=== PATIENT | female | born 1990 | race Caucasian/White ===

== ENCOUNTER 2023-05-20 11:22 | Outpatient (AMB) | payer BC, SELFPAY ==
--- NOTE | 2023-05-20 11:27 | MHC.OFFVIS ---
Intake Vital Signs 05/20/23 11:30 BP 112/78 Intake Visit Reasons: personal Intake Note: Scribed for Yane Pinon CNM by [facility] scribe, on 05/20/2023 at 11:36 AM, EST. Kiln Feeder: Kiln Feeder Present (Rossy) Allergies No Known Allergies Allergy (Verified 05/20/23 11:29) Is last menstrual period known: Yes Last menstrual period: 05/15/23 HPI HPI Comments History of Present Illness Details The patient presents in office today with complaints of a yeast infection. Onset ~1 week ago. The patient has taken diflucan, with no relief. She complains of burning and itching, which she finds frustrating. She is currently on her period. She is due for her annual and pap smear. [facility] Family History Maternal Grandmother History of breast cancer Female Reproductive History Menstrual Date of last menstrual period: 05/15/23 Total pregnancies: 4 Full term: 4 Number of Living Children: 4 Review of Systems Const All systems reviewed & are unremarkable except as noted in HPI and below Physical Exam Vital Signs: Last Vital Signs BP 112/78 05/20/23 11:30 Const General: cooperative, healthy appearing and no acute distress Orientation/consciousness: patient oriented x3 GI Inspection: Yes normal to inspection Palpation (GI): Soft to palpation and Other GI palpation findings present (Nontender) Rectal Exam - Female: visual inspection normal General: Yes bladder normal to palpation External Female Exam: No normal external appearance, normal appearance of the urethra, erythema (of vulva) and other (Edema of vulva) Speculum Exam - Vagina: abnormal vaginal discharge bloody Bimanual exam- vagina & uterus: normal bimanual exam, uterine size normal, bladder normal to palpation, uterine shape normal and non-tender Bimanual Exam- Adnexa, other: normal adnexae Neuro General: patient oriented x3 Assessment & Plan Assessment & Plan (1) Vaginitis: Code(s): N76.0 - Acute vaginitis Plan: Start Diflucan. Recommended cold compress. Air dry. No soap. No intimacy. Wear cotton underwear. Vulvar care: clean with water only, no soaps, no shaving. Dry with a cotton towel, air dry if needed. Wear loose cotton clothing. If swollen and uncomfortable externally apply a cool clothe to the area intermittently. Avoid intimacy until symptoms resolve. If symptoms do not improve, or resolve completely call the office for a follow up. Ordered BV panel. She is due for an annual with pap, she will schedule this to be done soon Orders: Orders Bacterial Vaginosis Panel Today N89.8 - Other specified noninflammatory disorders of vagina Medications: New clotrimazole-betamethasone 1-0.05 % 1 appl topical BID 7 days 45 grams 1RF fungal rash fluconazole may repeat dose in one week if symptoms do not resolve 150 mg PO ONCE 1 day 2 tabs 1RF personal Coding Level of Care Code New Pt Level 2 (75779) Diagnoses Vaginitis N76.0
[2023-05-20 11:30] VITALS: BP 112/78
== END 2023-05-20 12:22 | disposition home or self-care (01) ==
LOC: HO.HWS 11:22
PROVIDERS: Visit Provider Advanced Practice Midwife
DX: N76.0 Acute vaginitis (principal)
CPT/HCPCS: 99202

== ENCOUNTER 2023-05-20 11:22 | Outpatient (REF) | payer BC, SELFPAY ==
[2023-05-21 12:02] LABS: BV Int Neg Control Negative (Negative); BV Int Pos Control Positive (Positive)
== END 2023-05-20 11:23 | disposition home or self-care (01) ==
LOC: HO.LAB 11:22
PROVIDERS: Visit Provider Advanced Practice Midwife
DX: N89.8 Other specified noninflammatory disorders of vagina (principal)
CPT/HCPCS: 87480; 87510; 87660

== ENCOUNTER 2023-05-26 14:49 | Outpatient (REF) | payer BC, SELFPAY ==
[2023-05-27 12:50] LABS: BV Int Neg Control Negative (Negative); BV Int Pos Control Positive (Positive)
== END 2023-05-26 14:50 | disposition home or self-care (01) ==
LOC: HO.LAB 14:49
PROVIDERS: Visit Provider Advanced Practice Midwife
DX: N76.0 Acute vaginitis (principal)
CPT/HCPCS: 87480; 87510; 87660

== ENCOUNTER 2023-05-27 12:52 | Outpatient (REF) | payer BC, SELFPAY | END 2023-05-27 12:53 | disposition home or self-care (01) | LOC: HO.LAB 12:52 | PROVIDERS: Visit Provider Advanced Practice Midwife | DX: N76.0 Acute vaginitis (principal) | CPT/HCPCS: 87070; 87102; 87147; 87205 ==

== ENCOUNTER 2023-05-27 12:52 | Outpatient (REF) | payer BC, SELFPAY | END 2023-05-27 12:53 | disposition home or self-care (01) | LOC: HO.LNP 12:52 | PROVIDERS: Visit Provider Advanced Practice Midwife | DX: Z13.89 Encounter for screening for other disorder (principal) ==

== ENCOUNTER 2023-06-05 14:09 | Outpatient (REF) | payer BC, SELFPAY ==
[2023-06-05 14:28] LABS: MANUAL DIFF FLAG NO
[2023-06-05 14:58] LABS: Basophils Percent Auto 0.4 % (0-2); Eosinophils Absolute Auto 0.1 X10*3/uL (0.0-0.4); Eosinophils Percent Auto 0.6 % (0-4); Hematocrit 36.6 % (37.0-47.0); Hemoglobin 11.7 g/dl (12.0-16.0); Imm Gran Abs Auto 0.03 X10*3/uL (0.00-0.03); Imm Gran Pct Auto 0.3 % (0.0-0.4); Lymphocytes Absolute Auto 2.3 X10*3/uL (1.2-4.9); Lymphocytes Percent Auto 24.5 % (20-40); Mean Corpuscular Hemoglobin 28.1 pg (27.0-33.0); Mean Platelet Volume 10.6 fL (9.4-12.3); Monocytes Absolute Auto 0.8 X10*3/uL (0.1-1.2); Monocytes Percent Auto 9.1 % (2-11); Neutrophils Percent Auto 65.1 % (45-73); Platelet Count 383 X10*3/uL (160-400); Red Blood Count 4.16 X10*6/uL (4.20-5.50); Red Cell Distribution Width 13.5 % (11.0-16.0); White Blood Count 9.3 X10*3/uL (4.8-10.8)
[2023-06-05 15:29] LABS: Uric Acid 4.1 mg/dL (2.4-5.7)
== END 2023-06-05 14:10 | disposition home or self-care (01) ==
LOC: HO.LAB 14:09
PROVIDERS: Visit Provider Podiatrist Foot & Ankle Surgery
DX: L03.031 Cellulitis of right toe (principal); R60.0 Localized edema
CPT/HCPCS: 36415; 84550; 85025; 86140

== ENCOUNTER 2023-06-25 09:32 | Outpatient (REF) | payer BC, SELFPAY | END 2023-06-25 09:33 | disposition home or self-care (01) | LOC: HO.LAB 09:32 | PROVIDERS: Visit Provider Advanced Practice Midwife | DX: N76.0 Acute vaginitis (principal) | CPT/HCPCS: 87070; 87147; 87205 ==

== ENCOUNTER 2023-07-02 13:01 | Outpatient (AMB) | payer BC, SELFPAY ==
--- NOTE | 2023-07-02 12:59 | MHC.OFFVIS ---
Intake Vital Signs 07/02/23 13:06 Height 5 ft 7 in Weight 222 lb BMI 34.8 BP 120/69 Blood Pressure Location Lt brachial Position Sitting Pulse 80 Pulse Source Pulse Oximeter Pulse Oximetry (%) 100 Intake Visit Reasons: REf. Yane Pinon,Chronic vaginitis Allergies No Known Allergies Allergy (Verified 07/02/23 12:59) HPI REf. Yane Pinon,Chronic vaginitis HPI Details She presents with complaints of recurrent vulvar discomfort with redness and Group A strep isolated by report. She has received Amoxicillin on 05/26 and 06/27 with resolution but she is worried about recurrence. She also had yeast infection concerns and received Diflucan on 06/27. She has no other history of chronic infections. She has no known diabetes. [facility] Medical History Group A streptococcal infection Family History Maternal Grandmother History of breast cancer Review of Systems Const All systems reviewed & are unremarkable except as noted in HPI and below Physical Exam Vital Signs: Last Vital Signs Pulse 80 07/02/23 13:06 BP 120/69 07/02/23 13:06 Pulse Ox 100 07/02/23 13:06 BMI result Body Mass Index 34.8 Const General: cooperative Orientation/consciousness: patient oriented x3 HEENT Head: Yes normal to inspection Mouth: Normal oral and palatal mucosa present Eyes General: appearance normal, both eyes and all related structures Pupils: Equal, round and reactive pupils present Resp Effort & Inspection: normal respiratory effort Cardio Rate: regular rate Rhythm: regular rhythm GI Palpation (GI): Soft to palpation and nontender General: Yes no CVA tenderness Back/Spine/Pelvis Back: no CVA tenderness Skin General skin exam: no rashes or lesions noted Neuro General: patient oriented x3 Cranial nerves: Yes CN's II-XII intact bilaterally and Yes Equal, round and reactive pupils present Extrem General: Yes normal to inspection Psych Appearance: grossly normal Assessment & Plan Assessment & Plan (1) Group A streptococcal infection: Onset Date: 05/07/23 Comment: Check immunoglobulins and glucose Code(s): B95.0 - Streptococcus, group A, as the cause of diseases classified elsewhere Plan: Try suppressive PCN and let us know how this works. Check labs as above. Her daughter has had strep,try to check and eradicate it in household members. Orders: Orders Immunoglobulins,IgG IgA IgM 07/02/23 B95.0 - Streptococcus, group A, as the cause of diseases classified elsewhere Glucose Random 07/02/23 B95.0 - Streptococcus, group A, as the cause of diseases classified elsewhere Medications: New penicillin V potassium 250 mg PO BID 60 tabs 1RF 30 days Coding Level of Care Code New Pt Level 3 (51524) Diagnoses Group A streptococcal infection B95.0
[2023-07-02 13:06] VITALS: BP 120/69; PULSE 80; O2SAT 100; BMI 34.8
== END 2023-07-02 15:01 | disposition home or self-care (01) ==
PROVIDERS: Visit Provider Internal Medicine
DX: N76.1 Subacute and chronic vaginitis (principal); B95.0 Streptococcus, group A, as the cause of diseases classified elsewhere
CPT/HCPCS: 99203

== ENCOUNTER 2023-07-02 13:01 | Outpatient (REF) | payer BC, SELFPAY ==
[2023-07-02 18:23] LABS: Glucose Random 86 mg/dL (60-115)
[2023-07-04 16:54] LABS: IgA 290 mg/dL (47-310); IgG 1672 mg/dL (600-1640); IgM 53 mg/dL (50-300)
== END 2023-07-02 13:02 | disposition home or self-care (01) ==
LOC: HO.LAB 13:01
PROVIDERS: Visit Provider Internal Medicine
DX: N89.8 Other specified noninflammatory disorders of vagina (principal); B95.0 Streptococcus, group A, as the cause of diseases classified elsewhere
CPT/HCPCS: 36415; 82784; 82947

== ENCOUNTER 2024-09-08 12:47 | Outpatient (REF) | payer BC, SELFPAY ==
--- OUTSIDE RECORDS SUMMARY | 2024-09-08 15:31 | XMS_ITS | Clinical Summary ---
Author Organization [facility] Address [address] [place] [address] Care Team Providers Care Route Cdl Driver Name Role Phone Idris Elodia CURRICULUM COUNSELOR Primary Care Provider [phone] Social History Tobacco Use Types Packs/Day Years [...] age to complete this topic Care Teams Route Cdl Driver Relationship Specialty Start Date End Date Elodia Steinberg NP [address] [place] [address] PCP - General 05/13/22
--- OUTSIDE RECORDS SUMMARY | 2024-09-08 15:31 | XMS_ITS | Encounter Summary ---
Author Organization [facility] Address [address] [place] [address] Care Team Providers Care Regasification Plant Operator Name Role Phone Elodia Steinberg MABEL Primary Care Provider Encounter Details Date Type Department Care Team (Latest Contact Info) Description 09/22/2020 Lab Requisition [facility] COVID Drive Through [address] [place] [address] [address] [place] [address] Jayce Morales MD [address] [place] [address] Encounter for laboratory testing for COVID-19 virus [...] Luan Haji, Ph.D., Laboratory DirectorTests performed at [facility] Nasopharyngeal swab / Unknown 09/22/2020 1:53 PM EDT 09/22/2020 1:53 PM EDT Narrative JONATHAN CORTEZ - 09/23/2020 1:11 PM EDT Performed by [facility]., [address] [place] [address], CLIA# [id number] and [place] License# [id number] Jayce Morales MD MICROBIOLOGY - GENER AL ORDERABLES JONATHAN CORTEZ documented in this encounter Visit Diagnoses Diagnosis Encounter for laboratory testing for COVID-19 virus documented in this encounter Care Teams Regasification Plant Operator Relationship Specialty Start Date End Date Elodia Steinberg, MABEL PCP - General Family Medicine 06/20/20 documented as of this encounter
--- OUTSIDE RECORDS SUMMARY | 2024-09-08 15:31 | XMS_ITS | Clinical Summary ---
Author Organization [facility] Address [address] [place] [address] Care Team Providers Care Channel Layer Name Role Phone Idris Elodia Primary Care Provider [phone] Allergies No known active allergies Medications miSOPROStoL [...] high-risk Negative Negative 07/15/2023 3:02 PM EST [facility] Brushing Cervix uteri structure / Unknown Non-blood Collection / Unknown 07/14/2023 2:50 PM EST 07/14/2023 6:12 PM EST Narrative [facility] - 07/15/2023 3:02 PM EST Negative [...] LAB MICROBIOLOGY - GENERAL ORDERABLES Final Result [facility] [address] [place] [address], * Pap Test (07/14/2023 2:50 PM EST) Case Report Cytology ?Case: [id number] ? Authorizing Provider: ??Eve Davila MD ?Collected: ? 07/14/2023 1450 ? Ordering Location: ? [facility] Department of Received: ?07/15/2023 0817 ? Women's Health ? First Screen: ?Diya Benavides CT (ASCP) ? Specimen: ?Cytopathology, screening PAP test, Cervix ? 07/15/2023 3:02 PM EST [facility] LMP 07/06/2023 07/15/2023 3:02 PM EST [facility] Interpretation Negative for intraepithelial lesion or malignancy 07/15/2023 3:02 PM EST [facility] Specimen Adequacy Satisfactory for evaluation, endocervical/verma sformation zone component present 07/15/2023 3:02 PM EST [facility] Specimen Processing Thin Prep pap with manual screen/rescreen or review 07/15/2023 3:02 PM EST [facility] Educational Note The Pap test is a screening test which carries an inherent false negative rate. These test results should be correlated with the patient's clinical findings and history. 07/15/2023 3:02 PM EST [facility] Embedded Images 3:02 PM EST [facility] High Risk HPV Nucleic Acid Detection Negative 07/15/2023 3:02 PM EST [facility] Comment: Negative results indicate HPV E6/E7 [...] of Pathology and Laboratory Medicine at [facility] Brushing Cervix uteri structure / Unknown Non-blood Collection / Unknown 07/14/2023 2:50 PM EST 07/15/2023 8:17 AM EST us Eve Davila MD LAB PATHOLOGY/CYTOLOGY ORD ERABLES Final Result [facility] [address] [place] [address], [place] [phone] from Last 3 Months or Most Recently Relevant to Health Maintenance Insurance [employer] Care Teams Channel Layer Relationship Specialty Start Date End Date Elodia Steinberg [address] [place] [address] PCP - General Family Medicine 05/02/23
--- OUTSIDE RECORDS SUMMARY | 2024-09-08 15:31 | XMS_ITS | Encounter Summary ---
Author Organization [facility] Address [address] [place] [address] Care Team Providers Care School Counsellor Name Role Phone Elodia Steinberg MABEL Primary Care Provider Encounter Details Date Type Department Care Team (Latest Contact Info) Description [facility] [address] [place] [address] [address] [place] [address] Jayce Morales MD [address] [place] [address] Encounter for laboratory testing for COVID-19 virus [...] Detected Not Detected 10/13/2020 6:24 PM EDT [facility] Comment: Negative results do [...] was completed and performance characteristics established by [facility] as per the FDA and CLIA requirement for this EUA. The Aptima SARS-CoV-2 assay Letter of Authorization, along with the authorized Fact Sheet for Healthcare Providers, the authorized Fact Sheet for Patients, and authorized labeling are available on the FDA website: https://www.fda.gov/medical-devices/jkqlfzpby-ekylrxrqbu-bwloaaf-devices/emergen - i-ootyjjweywbhhi-vtxgfjn-devices. Performed at [facility], [place], [place] ??[place] License 0385 ??CLIA [id number] Source Nasopharyngeal 10/13/2020 6:24 PM EDT [facility] Comment:Performed at [facility], [facility], [place] license No. [id number] CLIA No. [id number] Microbiology Nasopharyngeal swab / Unknown 10/13/2020 2:15 PM EDT 10/13/2020 2:15 PM EDT Jayce Morales MD MICROBIOLOGY - GENER AL ORDERABLES [facility] [address] [place] [address] documented in this encounter Visit Diagnoses Diagnosis Encounter for laboratory testing for COVID-19 virus documented in this encounter Care Teams School Counsellor Relationship Specialty Start Date End Date Elodia Steinberg APRN PCP - General Family Medicine 06/20/20 documented as of this encounter
--- OUTSIDE RECORDS SUMMARY | 2024-09-08 15:31 | XMS_ITS | Encounter Summary ---
Author Organization [facility] Address [address] [place] [address] Care Team Providers Care Collector Of Port Name Role Phone Elodia Steinberg MABEL Primary Care Provider Encounter Details Date Type Department Care Team (Latest Contact Info) Description 10/06/2020 Lab Requisition [facility] COVID Drive Through [address] [place] [address] [address] [place] [address] Jayce Morales MD [address] [place] [address] Encounter for laboratory testing for COVID-19 virus [...] Detected Not Detected 10/06/2020 7:21 PM ED[address] [facility] Comment: Negative results do [...] was completed and performance characteristics established by [facility] as per the FDA and CLIA requirement for this EUA. The Aptima SARS-CoV-2 assay Letter of Authorization, along with the authorized Fact Sheet for Healthcare Providers, the authorized Fact Sheet for Patients, and authorized labeling are available on the FDA website: https://www.fda.gov/medical-devices/ivfpzpdkt-xkbqyyebvm-kmwkkbs-devices/emergen - k-grtyksegjibpjs-eekwngi-devices. Performed at [facility], [place], [place] ??[place] License 0385 ??CLIA [id number] Source Nasopharyngeal 10/06/2020 7:21 PM ED[address] [facility] Comment:Performed at [facility], [place] license No. [id number] CLIA No. [id number] Microbiology Nasopharyngeal swab / Unknown 10/06/2020 3:06 PM EDT 10/06/2020 3:06 PM EDT Jayce Morales MD MICROBIOLOGY - GENER AL ORDERABLES [facility] [address] [place] [address] documented in this encounter Visit Diagnoses Diagnosis Encounter for laboratory testing for COVID-19 virus documented in this encounter Care Teams Collector Of Port Relationship Specialty Start Date End Date Elodia Steinberg APRN PCP - General Family Medicine 06/20/20 documented as of this encounter
--- OUTSIDE RECORDS SUMMARY | 2024-09-08 15:32 | XMS_ITS | Encounter Summary ---
Author Organization [facility] Address [address] [place] [address] Care Team Providers Care Intern Architect Name Role Phone Elodia Steinberg MABEL Primary Care Provider Encounter Details Date Type Department Care Team (Latest Contact Info) Description 08/04/2020 Lab Requisition [facility] COVID Drive Through [address] [place] [address] [address] [place] [address] Jayce Morales MD [address] [place] [address] Encounter for laboratory testing for COVID-19 virus [...] Roel Solorzano, Ph.D., Laboratory DirectorTests performed at [facility] Microbiology Nasopharyngeal swab / Unknown 08/04/2020 3:26 PM EST 08/04/2020 3:26 PM EST Narrative JONATHAN CORTEZ - 08/05/2020 3:32 PM EST Performed by [facility]., [address] [place] [address], CLIA# [id number] and [place] License# [id number] Jayce Morales MD MICROBIOLOGY - GENER AL ORDERABLES JONATHAN CORTEZ documented in this encounter Visit Diagnoses Diagnosis Encounter for laboratory testing for COVID-19 virus documented in this encounter Care Teams Intern Architect Relationship Specialty Start Date End Date Elodia Steinberg, MABEL PCP - General Family Medicine 06/20/20 documented as of this encounter
--- OUTSIDE RECORDS SUMMARY | 2024-09-08 15:32 | XMS_ITS | Encounter Summary ---
Author Organization [facility] Address [address] [place] [address] Care Team Providers Care Bricklayer Tender Name Role Phone IdrisElodia MABEL Primary Care Provider Encounter Details Date Type Department Care Team (Latest Contact Info) Description 07/14/2020 [facility] [address] [place] [address] [address] [place] [address] Kip Bullock PA-C [address] [place] [address] Encounter for laboratory testing for COVID-19 virus [...] Luan Haji, Ph.D., Laboratory DirectorTests performed at [facility] Nasopharyngeal swab / Unknown 07/14/2020 11:25 AM EST 07/14/2020 11:25 AM EST Narrative JONATHAN CORTEZ - 07/15/2020 4:56 PM EST Performed by [facility] [address] [place] [address], CLIA# [id number] and [place] License# [id number] Kip Bullock PA-C MICROBIOLOGY - NERAL ORDERABLES JONATHAN CORTEZ documented in this encounter Visit Diagnoses Diagnosis Encounter for laboratory testing for COVID-19 virus documented in this encounter Care Teams Bricklayer Tender Relationship Specialty Start Date End Date Elodia Steinberg APRN PCP - General Family Medicine 06/20/20 documented as of this encounter
--- OUTSIDE RECORDS SUMMARY | 2024-09-08 15:32 | XMS_ITS | Encounter Summary ---
Author Organization [facility] Address [address] [place] [address] Care Team Providers Care Telephone Directory Deliverer Name Role Phone Elodia Steinberg MABEL Primary Care Provider Encounter Details Date Type Department Care Team (Latest Contact Info) Description 08/25/2020 Lab Requisition [facility] COVID Drive Through [address] [place] [address] [address] [place] [address] Jayce Morlaes MD [address] [place] [address] Encounter for laboratory testing for COVID-19 virus [...] Roel Solorzano, Ph.D., Laboratory DirectorTests performed at [facility] Nasopharyngeal swab / Unknown 08/25/2020 1:01 PM EST 08/25/2020 1:02 PM EST Narrative JONATHAN CORTEZ - 08/26/2020 3:32 PM EST Performed by [facility]., [address] [place] [address], CLIA# [id number] and [place] License# [id number] Jayce Morales MD MICROBIOLOGY - GENER AL ORDERABLES JONATHAN CORTEZ documented in this encounter Visit Diagnoses Diagnosis Encounter for laboratory testing for COVID-19 virus documented in this encounter Care Teams Telephone Directory Deliverer Relationship Specialty Start Date End Date Elodia Steinberg APRN PCP - General Family Medicine 06/20/20 documented as of this encounter
--- OUTSIDE RECORDS SUMMARY | 2024-09-08 15:32 | XMS_ITS | Encounter Summary ---
Author Organization [facility] Address [address] [place] [address] Care Team Providers Care Global Chief Creative Officer Name Role Phone Elodia Steinberg MABEL Primary Care Provider Encounter Details Date Type Department Care Team (Latest Contact Info) Description 08/11/2020 Lab Requisition [facility] COVID Drive Through [address] [place] [address] [address] [place] [address] Jayce Morales MD [address] [place] [address] Encounter for laboratory testing for COVID-19 virus [...] Luan Haji, Ph.D., Laboratory DirectorTests performed at [facility] Nasopharyngeal swab / Unknown 08/11/2020 11:45 AM EST 08/11/2020 11:45 AM EST Narrative JONATHAN CORTEZ - 08/12/2020 11:15 AM EST Performed by [facility] [address] [place] [address], CLIA# [id number] and [place] License# [id number] Jayce Morales MD MICROBIOLOGY - GENER AL ORDERABLES JONATHAN CORTEZ documented in this encounter Visit Diagnoses Diagnosis Encounter for laboratory testing for COVID-19 virus documented in this encounter Care Teams Global Chief Creative Officer Relationship Specialty Start Date End Date Elodia Steinberg APRN PCP - General Family Medicine 06/20/20 documented as of this encounter
--- OUTSIDE RECORDS SUMMARY | 2024-09-08 15:32 | XMS_ITS | Clinical Summary ---
Author Organization [facility] Address [address] [place] [address] Care Team Providers Care Bow Repairer Custom Name Role Phone Elodia Steinberg APRN Primary Care Provider [phone]- [phone] Allergies No known active allergies Medications No [...] age to complete this topic Care Teams Bow Repairer Custom Relationship Specialty Start Date End Date Elodia Steinberg, MABEL [address] [facility] [place] [address] PCP - General Family Medicine 05/13/22
--- OUTSIDE RECORDS SUMMARY | 2024-09-08 15:32 | XMS_ITS | Encounter Summary ---
Author Organization [facility] Address [address] [place] [address] Care Team Providers Care Immigration Attorney Name Role Phone Elodia Steinberg MABEL Primary Care Provider Encounter Details Date Type Department Care Team (Latest Contact Info) Description 09/08/2020 Lab Requisition [facility] COVID Drive Through [address] [place] [address] [address] [place] [address] Jayce Morales MD [address] [place] [address] Encounter for laboratory testing for COVID-19 virus [...] Roel Solorzano, Ph.D., Laboratory DirectorTests performed at [facility] Nasopharyngeal swab / Unknown 09/08/2020 2:54 PM EST 09/08/2020 2:54 PM EST Narrative JONATHAN CORTEZ - 09/09/2020 2:17 PM EST Performed by [facility] [address] [place] [address], CLIA# [id number] and [place] License# [id number] Jayce Morales MD MICROBIOLOGY - GENER AL ORDERABLES JONATHAN CORTEZ documented in this encounter Visit Diagnoses Diagnosis Encounter for laboratory testing for COVID-19 virus documented in this encounter Care Teams Immigration Attorney Relationship Specialty Start Date End Date Elodia Setinberg APRN PCP - General Family Medicine 06/20/20 documented as of this encounter
--- OUTSIDE RECORDS SUMMARY | 2024-09-08 15:32 | XMS_ITS | Encounter Summary ---
Author Organization [facility] Address [address] [place] [address] Care Team Providers Care Ply Cutter Name Role Phone Elodia Steinberg MABEL Primary Care Provider Encounter Details Date Type Department Care Team (Latest Contact Info) Description 07/27/2020 Lab Requisition [facility] COVID Drive Through [address] [place] [address] [address] [place] [address] Jayce Morales MD 80 [place] [address] Encounter for laboratory testing for COVID-19 virus [...] Roel Solorzano, Ph.D., Laboratory DirectorTests performed at [facility] Nasopharyngeal swab / Unknown 07/27/2020 3:20 PM EST 07/27/2020 3:20 PM EST Narrative JONATHAN CORTEZ - 07/28/2020 10:15 PM EST Performed by [facility] [address] [place] [address], CLIA# [id number] and [place] License# [id number] Jayce Morales MD MICROBIOLOGY - GENER AL ORDERABLES JONATHAN CORTEZ documented in this encounter Visit Diagnoses Diagnosis Encounter for laboratory testing for COVID-19 virus documented in this encounter Care Teams Ply Cutter Relationship Specialty Start Date End Date Elodia Steinberg APRN PCP - General Family Medicine 06/20/20 documented as of this encounter
--- OUTSIDE RECORDS SUMMARY | 2024-09-08 15:32 | XMS_ITS | Encounter Summary ---
Author Organization [facility] Address [address] [place] [address] Care Team Providers Care Briar Cutter Name Role Phone Elodia Steinberg MABEL Primary Care Provider Encounter Details Date Type Department Care Team (Latest Contact Info) Description 09/01/2020 Lab Requisition [facility] COVID Drive Through [address] [place] [address] [address] [place] [address] Jayce Morales MD 80 [place] [address] Encounter for laboratory testing for COVID-19 virus [...] Roel Solorzano, Ph.D., Laboratory DirectorTests performed at [facility] Nasopharyngeal swab / Unknown 09/01/2020 2:23 PM EST 09/01/2020 2:23 PM EST Narrative JONATHAN CORTEZ - 09/02/2020 3:10 PM EST Performed by [facility] [address] [place] [address], CLIA# [id number] and [place] License# [id number] Jayce Morales MD MICROBIOLOGY - GENER AL ORDERABLES JONATHAN CORTEZ documented in this encounter Visit Diagnoses Diagnosis Encounter for laboratory testing for COVID-19 virus documented in this encounter Care Teams Briar Cutter Relationship Specialty Start Date End Date Elodia Steinberg, MABEL PCP - General Family Medicine 06/20/20 documented as of this encounter
--- OUTSIDE RECORDS SUMMARY | 2024-09-08 15:32 | XMS_ITS | Clinical Summary ---
Author Organization [facility] Address [address] [place] [address] Care Team Providers Care Parent Coach Name Role Phone Elodia Steinberg APRN Primary [...] age to complete this topic Care Teams Parent Coach Relationship Specialty Start Date End Date Elodia Steinberg APRN PCP - General Family Medicine 06/20/20
--- OUTSIDE RECORDS SUMMARY | 2024-09-08 15:32 | XMS_ITS | Encounter Summary ---
Author Organization [facility] Address [address] [place] [address] Care Team Providers Care Membership Administrator Name Role Phone Elodia Steinberg MABEL Primary Care Provider Encounter Details Date Type Department Care Team (Latest Contact Info) Description 09/14/2020 Lab Requisition [facility] COVID Drive Through [address] [place] [address] [address] [place] [address] Jayce Morales MD 80 [place] [address] Encounter for laboratory testing for COVID-19 virus [...] Roel Solorzano, Ph.D., Laboratory DirectorTests performed at [facility] Nasopharyngeal swab / Unknown 09/14/2020 12:08 PM EST 09/14/2020 12:09 PM EST Narrative JONATHAN CORTEZ - 09/15/2020 9:12 AM EST Performed by [facility] [address] [place] [address], CLIA# [id number] and [place] License# [id number] Jayce Morales MD MICROBIOLOGY - GENER AL ORDERABLES JONATHAN CORTEZ documented in this encounter Visit Diagnoses Diagnosis Encounter for laboratory testing for COVID-19 virus documented in this encounter Care Teams Membership Administrator Relationship Specialty Start Date End Date Elodia Steinberg APRN PCP - General Family Medicine 06/20/20 documented as of this encounter
--- OUTSIDE RECORDS SUMMARY | 2024-09-08 15:32 | XMS_ITS | Encounter Summary ---
Author Organization [facility] Address [address] [place] [address] Care Team Providers Care Cloth Spreader Name Role Phone Elodia Steinberg MABEL Primary Care Provider Encounter Details Date Type Department Care Team (Latest Contact Info) Description 08/18/2020 Lab Requisition [facility] COVID Drive Through [address] [place] [address] [address] [place] [address] Jayce Morales MD [address] [place] [address] Encounter for laboratory testing for COVID-19 virus [...] Luan Haji, Ph.D., Laboratory DirectorTests performed at [facility] Nasopharyngeal swab / Unknown 08/18/2020 11:37 AM EST 08/18/2020 11:37 AM EST Narrative JONATHAN CORTEZ - 08/19/2020 3:35 PM EST Performed by [facility] [address] [place] [address], CLIA# [id number] and [place] License# [id number] Jayce Morales MD MICROBIOLOGY - GENER AL ORDERABLES JONATHAN CORTEZ documented in this encounter Visit Diagnoses Diagnosis Encounter for laboratory testing for COVID-19 virus documented in this encounter Care Teams Cloth Spreader Relationship Specialty Start Date End Date Elodia Steinberg APRN PCP - General Family Medicine 06/20/20 documented as of this encounter
--- OUTSIDE RECORDS SUMMARY | 2024-09-08 15:32 | XMS_ITS | Encounter Summary ---
Author Organization [facility] Address [address] [place] [address] Care Team Providers Care Arson And Bomb Investigator Name Role Phone Elodia Steinberg MABEL Primary Care Provider Encounter Details Date Type Department Care Team (Latest Contact Info) Description [facility] [facility] [address] [place] [address] [address] [place] [address] Kip Bullock PA-C [address] [place] [address] Encounter for laboratory testing for COVID-19 virus [...] Luan Haji, Ph.D., Laboratory DirectorTests performed at [facility] Nasopharyngeal swab / Unknown 07/20/2020 5:15 PM EST 07/20/2020 5:16 PM EST Narrative JONATHAN CORTEZ - 07/22/2020 9:44 AM EST Performed by [facility] [address] [place] [address], CLIA# [id number] and [place] License# [id number] Kip Bullock PA-C MICROBIOLOGY - NERAL ORDERABLES JONATHAN CORTEZ documented in this encounter Visit Diagnoses Diagnosis Encounter for laboratory testing for COVID-19 virus documented in this encounter Care Teams Arson And Bomb Investigator Relationship Specialty Start Date End Date Elodia Steinberg APRN PCP - General Family Medicine 06/20/20 documented as of this encounter
--- OUTSIDE RECORDS SUMMARY | 2024-09-08 15:32 | XMS_ITS | Encounter Summary ---
Author Organization [facility] Address [address] [place] [address] Care Team Providers Care Regional Agronomist Name Role Phone IdrisElodia MABEL Primary Care Provider Encounter Details Date Type Department Care Team (Latest Contact Info) Description 06/20/2020 Lab Requisition [facility] COVID Drive Through [address] [place] [address] [address] [place] [address] Kip Bullock PA-C [address] [place] [address] Encounter for laboratory testing for COVID-19 virus [...] recommended.Final report signed by Jeronimo Tucker, Ph.D., [facility], Laboratory DirectorTests performed at [facility] Nasopharyngeal swab / Unknown 06/20/2020 2:39 PM EST 06/20/2020 2:39 PM EST Narrative [facility] [place] - 06/21/2020 10:56 PM EST Performed by [facility] [address] [place] [address], CLIA# [id number] and [place] License# [id number] Kip Bullock PA-C MICROBIOLOGY - NERAL ORDERABLES JONATHAN CORTEZ documented in this encounter Visit Diagnoses Diagnosis Encounter for laboratory testing for COVID-19 virus documented in this encounter Care Teams Regional Agronomist Relationship Specialty Start Date End Date Elodia Steinberg APRN PCP - General Family Medicine 06/20/20 documented as of this encounter
[2024-09-09 17:19] LABS: Bacterial Vaginosis PCR NEGATIVE (Negative); Candida Group PCR NOT DETECTED (Not Detect); Candida glab krusei PCR NOT DETECTED (Not Detect); Trichomonas vaginalis PCR NOT DETECTED (Not Detect)
== END 2024-09-08 12:48 | disposition home or self-care (01) ==
LOC: HO.LNP 12:47
PROVIDERS: Visit Provider Obstetrics & Gynecology
DX: N93.9 Abnormal uterine and vaginal bleeding, unspecified (principal); N76.0 Acute vaginitis
CPT/HCPCS: 81025; 81515

== ENCOUNTER 2024-09-08 12:47 | Outpatient (AMB) | payer BC, SELFPAY ==
--- NOTE | 2024-09-08 12:48 | MHC.OFFVIS ---
Vital Signs 09/08/24 12:50 BP 122/78 Intake Visit Reasons: AUB Hose Handler Required: No Information Interpreted: non-clinical & clinical Accompanied by: Self / Same As Patient Allergies No Known Allergies Allergy (Verified 09/08/24 12:50) HPI Comments Details: Presenting complaining of irregular menstrual cycles over the last few years . A pelvic ultrasound done at [facility] a year ago showed questionable abnormal endometrial lesion, hysteroscopy was recommended. In addition, the patient has been complaining of vaginal foul odor on and off, but she is not experiencing it today. On 08/23/2024 H&H was 11.2/35.7 and TSH was within normal Last co testing? [facility] Medical History Group A streptococcal infection (05/07/23) Family History Maternal Grandmother History of breast cancer Review of Systems Const All systems reviewed & are unremarkable except as noted in HPI and below Reports as per HPI and Reports no additional complaints GI Reports no additional complaints Reports no additional complaints Physical Exam Vital Signs: Last Vital Signs BP 122/78 09/08/24 12:50 Results AMB Test Urine AMB Test Urine Negative Last Edit by Rachel Garcia CMA on 09/08/24 12:52 Assessment & Plan Assessment & Plan (1) Abnormal uterine bleeding (AUB): Code(s): N93.9 - Abnormal uterine and vaginal bleeding, unspecified Category: Medical Plan: Pelvic exam and Co testing done deferred for next visit , pelvic ultrasound ordered. Discussed with the patient the different causes of abnormal bleeding including thyroid disorders, uterine and ovarian pathology, endometrial hyperplasia, carcinoma and other potential causes. Discussed with the patient the work up including endometrial sampling to r/o endometrial pathology via office EMB versus hysteroscopy D&C possible polypectomy depending on the pelvic ultrasound findings. All questions answered and the patient verbalized understanding. Instructed the patient to schedule an ultrasound follow-up appointment/pelvic exam/Co test within 2 weeks. (2) Vaginitis: Code(s): N76.0 - Acute vaginitis Category: Medical Plan: BV panel was self collected, will check the results and treat accordingly Orders: Orders Bacterial Vaginosis Panel Today N93.9 - Abnormal uterine and vaginal bleeding, unspecified AMB HCG Urine Test Today Z32.02 - Encounter for test, result negative US pelvic and transvaginal Today N93.9 - Abnormal uterine and vaginal bleeding, unspecified Coding Level of Care Code Est Pt Level 3 (54808) Diagnoses Abnormal uterine bleeding (AUB) N93.9 Vaginitis N76.0
[2024-09-08 12:50] VITALS: BP 122/78
--- OUTSIDE RECORDS SUMMARY | 2024-09-08 15:06 | XMS_ITS | Encounter Summary ---
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 Name Role Phone Elodia Steinberg MABEL Primary Care Provider Encounter Details Date Type Department Care Team (Latest Contact Info) Description 09/22/2020 Lab Requisition [facility] [address] Through [address] [place] [address] [address] [place] [address] Jayce Morales MD [address] [place] [address] Encounter for laboratory testing for COVID-19 virus Social History Tobacco Use Types Packs/Day Years Used Date Smoking Tobacco: Never Assessed Sex and Gender Information Value Date Recorded Sex Assigned at Not on file Gender Identity Not on file Sexual Orientation Not on file documented as of this encounter Plan of Treatment Not on file documented as of this encounter Procedures Procedure Name Priority Date/Time Associated Diagnosis Comments COVID-19 (SARS-COV-2) - SEMA4 LAB Routine 09/22/2020 1:53 PM EDT Encounter for laboratory testing for COVID-19 virus [ICD-10-CM] documented in this encounter Results * COVID-19 (SARS-COV-2) (SEMA4) (09/22/2020 1:53 PM EDT) COVID-19 RT-PCR NOT-DETEC RIYA Not-Detec riya 09/23/2020 1:11 PM EDT SEMA[facility] Comment:Interpretation: The viral RNA was not detected, making the COVID-19 diagnosis less likely. Clinical correlation is highly recommended.Final report signed by Luan Haji, Ph.D., Laboratory DirectorTests performed at [facility] Microbiology Nasopharyngeal swab / Unknown 09/22/2020 1:53 PM EDT 09/22/2020 1:53 PM EDT Narrative JONATHAN CORTEZ - 09/23/2020 1:11 PM EDT Performed by [facility] [address] [place] [id number], CLIA# [id number] and [place] License# [id number] Jayce Morales MD MICROBIOLOGY - GENER AL ORDERABLES JONATHAN CORTEZ documented in this encounter Visit Diagnoses Diagnosis Encounter for laboratory testing for COVID-19 virus documented in this encounter Care Teams [employer] System Operator Relationship Specialty Start Date End Date Elodia Steinberg, MABEL PCP - General Family Medicine 06/20/20 documented as of this encounter
--- OUTSIDE RECORDS SUMMARY | 2024-09-08 15:06 | XMS_ITS | Continuity of Care Document ---
Author Organization [place] - [facility], [facility] Address [address] [place] [address] Care Team Providers Care Gas Adjuster Name Role Phone OLGA ROSALES House Wirer Helper [phone] SEAN WANG Tiler'S Assistant ELODIA FERNANDEZ Primary Care Provider [phone] Assessment No assessment recorded. Plan of Treatment Reminders Order Date Submit Date Provider Last Modified By Organization Details Last Modified Time Details Appointments PHYSICAL EXAM 45 2025 08:30A M Elodia Fernandez, MOTOR VEHICLE EMISSIONS INSPECTOR Not available Not available Not available Lab iron + TIBC + ferritin, serum 2024 025 [facility], [address] [facility], [place], [address], 08/24/2024 10:08:42 urinalysi s, dipstick 2024 025 [email or web address] 66 [facility], [address] [facility], [place], [address], 08/23/2024 08:52:47 CBC w/ auto diff 2024 025 [employer], [address] [facility], [place], [address], 08/24/2024 10:08:44 CMP, serum or plasma 2024 025 [employer], [address] [facility], [place], [address], 08/24/2024 10:08:43 TSH, serum or plasma 2024 025 [employer], [address] [facility] [address], [place], [address], 08/24/2024 10:08:44 lipid panel, serum 2024 025 [employer], [address], [place], [address], 08/24/2024 10:08:43 Referral None recorded. Procedures None recorded. Surgeries None recorded. Imaging None recorded. Medication Orders None recorded. Patient TargetsNo targets recorded. Patient InstructionsNo instructions recorded. Reason for Referral None Reported. Results Created Date Observation Date Name Description Value Unit Range Abnormal Flag Note LastModifiedBy Organization Detail LastModifiedTime 08/23/1908/23/2024 urina lysis , dipst ick Glucose Negati ve Not Available [facility] [address], [place], [address], 08/23/2024 08:46:18 08/23/19 25 08/23/2024 urina lysis , dipst ick Appearance Clear Not Available [facility] [address], [place], [address], 08/23/2024 08:46:18 08/23/19 25 08/23/2024 urina lysis , dipst ick Color Yellow Not Available [facility] [address], [place], [address], 08/23/2024 08:46:18 08/23/19 25 08/23/2024 urina lysis , dipst ick Leukocytes Negati ve Not Available [facility] [address], [place], [address], 08/23/2024 08:46:18 08/23/19 25 08/23/2024 urina lysis , dipst ick Nitrate Negati ve Not Available [facility] [address] [facility], [place], [address], 08/23/2024 08:46:18 08/23/19 25 08/23/2024 urina lysis , dipst ick Urobilinogen Negati ve Not Available [facility] [address], [place], [address], 08/23/2024 08:46:18 08/23/19 25 08/23/2024 urina lysis , dipst ick Protein Negati ve Not Available [facility] [address] [facility] [facility], [place], [address], 08/23/2024 08:46:18 08/23/19 25 08/23/2024 urina lysis , dipst ick pH 7.5 Not Available [facility] [address], [place], [address], 08/23/2024 08:46:18 08/23/19 25 08/23/2024 urina lysis , dipst ick Blood 1+ Not Available [facility] [address], [place], [address], 08/23/2024 08:46:18 08/23/19 25 08/23/2024 urina lysis , dipst ick Specific Republic 1.[address] [facility] [address], [place], [address], 08/23/2024 08:46:18 08/23/19 25 08/23/2024 urina lysis , dipst ick Ketone Negati ve Not Available [facility] [address], [place], [address], 08/23/2024 08:46:18 08/23/19 25 08/23/2024 urina lysis , dipst ick Bilirubin Negati ve Not Available [facility] [address], [place], [address], 08/23/2024 08:46:18 08/27/19 25 08/26/2024 vascu lar exami natio n (PROC ) No observ ation record ed. [email or web address] [facility] [address] [address], [place], [address], 08/27/2024 08:35:44 Result Notes None recorded. Problems Name Problem SNOMED Code Status Onset Date Resolution Date Notes Provider Name and Address Organization Details Recorded Time Active immunizat ion Active Problem Code: Z23; Problem Code Type: ICD-10; Not Available [facility] 3 03:44:26 Adult health examinati on Active Problem Code: Z00.00; Problem Code Type: ICD-10; Elodia Fernandez APRN [address], [place], [address] , [facility] 4 08:40:29 Body mass index 30+ - obesity 189930109 Active Problem Code: Z68.33; Problem Code Type: ICD-10; Not Available [facility] 3 03:44:26 Basal cell carcinoma of skin 005079132 Active Problem Code: C44.91; Problem Code Type: ICD-10; Elodia Fernandez APRN [address], [place], [address] , [facility] 4 08:50:12 Hyperlipi demia 04085876 Active Problem Code: E78.5; Problem Code Type: ICD-10; Elodia Fernandez APRN [address] , [place], [address] , [facility] 4 08:40:33 Menorrhag ia 194667265 Active 2023 Elodia Fernandez APRN [address], [place], [address] , [employer] [facility] 4 08:49:32 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 Procedures Surgical History Date Name Laterality Status Provider Name and Address Organization Details Recorded Time 2024 [employer] Z713 completed Elodia Fernandez APRN [address], [place], [address] , [facility] 5 09:15:09 2024 EGFPCervicalCancerScreen Z124 completed Elodia Fernandez APRN [address] [place], [address] , [facility] 5 08:55:59 2023 EGFPCervicalCancerScreen Z124 completed Elodia Fernandez APRN [address], [place], [address] , [facility] 4 08:52:22 2023 Date of Last Pap Smear completed Elodia Fernandez APRN [address] [place], [address] , [facility] 5 08:56:09 Imaging Results None recorded. Procedure Notes None recorded. Medical Equipment None Reported. Allergies No known drug allergies Medications Name Sig Start Date Stop Date Status Note LastModified by Organization Details LastModified Time penicillin V potassium 250 mg tablet 10/06 completed Not Available Not Available Not Available amoxicillin 500 mg capsule TAKE 1 CAPSULE BY MOUTH TWICE A DAY 10/06 completed Not Available Not Available Not Available fluconazole 150 mg tablet TAKE 1 TABLET BY MOUTH NOW THEN REPEAT IN 3 DAYS NEEDED 10/06 completed Not Available Not Available Not Available lorazepam 0.5 mg tablet TAKE 1-2 TABLETS BY MOUTH AT BEDTIME NEEDED 08/23 completed Not Available Not Available Not Available clotrimazole -betamethaso ne 1 %-0.05 % topical cream 10/06 completed Not Available Not Available Not Available multivitamin Take 1 Tablet ORAL daily. 08/23 completed Not Available Not Available Not Available Vitals Date Recorded Body height Body mass index (BMI) Body weight Oxygen saturation Oxygen saturation in Arterial blood by Pulse oximetry Heart rate Body temperature Systolic blood pressure Diastolic blood pressure Provider Name and Address Organization Details Last Updated DateTime 171.45 cm 33.2 kg/m2 36386.4 6 g 99 % 99 % 72 /min 97.8 [degF] 116 mm[Hg] 91 mm[Hg] Araceli Carvalho [facility] 08:37:33 Social History Question Answer Notes LastModified by Organization Details LastModified Time Tobacco Smoking Status Never Smoker Not Available [facility] 03/24/2023 12:28:04 Do You Have An Advance Directive? No Declined Info 08/23/24 Information not available 08/23/2024 What Is Your Advocate's Name? Yane Fish Information not available 08/23/2024 What Is Your Relation To The Advocate? Daughter Information not available 08/23/2024 What Is Your Level Of Alcohol Consumption? None Information not available 08/23/2024 Do You Wear A Helmet When Biking? Yes Information not available 08/23/2024 Are You Blind Or Do You Have Difficulty Seeing? No Exam: > 5 Years Information not available 08/23/2024 Is Blood Transfusion Acceptable In An Emergency? Yes Information not available 08/23/2024 What Is Your Code Status? Full Code Information not available 08/23/2024 Are You Currently Employed? Yes Information not available 08/23/2024 Are You Deaf Or Do You Have Serious Difficulty Hearing? No Information not available 08/23/2024 What Type Of Diet Are You Following? REGULAR Information not available 08/23/2024 What Is The Highest Grade Or Level Of School You Have Completed Or The Highest Degree You Have Received? 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 No Information not available 08/23/2024 What Is The Fluoride Status Of Your Home? Non-fluoridated Information not available 08/23/2024 Are There Any Guns Present In Your Home? No Information not available 08/23/2024 Which Of Your Hands Is Dominant? Right Information not available 08/23/2024 [facility] 08/23/2024 Do You Have A Medical Power Of Adjunct Instructor In Economics? No Information not available 08/23/2024 What Was The Date Of Your Most Recent Tobacco Screening? 08/23/2024 Information not available 08/23/2024 How Many Children Do You Have? 4 Information not available 08/23/2024 Do You Have A Patient Advocate? Yes Information not available 08/23/2024 Do You Have Any Pets? Yes Information not available 08/23/2024 Do You Use Protection During Sex? No Information not available 08/23/2024 What Is Your Relationship Status? Information not available 08/23/2024 Do You Use Your Seat Belt Or Car Seat Routinely? Yes Information not available 08/23/2024 Are You Sexually Active? Yes Information not available 08/23/2024 Do You Have Any Siblings? 2 Information not available 08/23/2024 Do You Have Smoke And Carbon Monoxide Detectors In Your Home? Yes Information not available 08/23/2024 Are There Any Smokers In Your House? No Information not available 08/23/2024 Do You Participate In Social Media? Yes Information not available 08/23/2024 What Types Of Sporting Activities Do You Participate In? No Information not available 08/23/2024 Do You Feel Stressed (tense, Restless, Nervous, Or Anxious, Or Unable To Sleep At Night)? [id number] Information not available 08/23/2024 Do You Use Any Illicit Or Recreational Drugs? No Information not available 08/23/2024 Do You Use Sunscreen Routinely? No Information not available 08/23/2024 What Type Of Noise Exposure Are You Exposed To? NoExposureToExcessiveNo ise Information not available 08/23/2024 Are You Currently In School? No Information not available 08/23/2024 What Contraceptive Method Was Reported At Start Of This Visit? None Information not available 08/23/2024 Sex: Unknown Functional Status Question Answer Note LastModified by Organizat ion Details LastModified Time What is your exercise level? Occasional Information not available 08/23/2024 Mental Status Question Answer Note LastModified by Organization D etails LastModified Time Do you have difficulty concentrating, remembering or making decisions? No Information no t available 08/23/2024 Family History Nothing Reported Notes:Father : Alive HLD, DM , BCC SCC Mother : Alive Hypothyroid Paternal Grandfather: DM, [place] age 57 Paternal Grandmother: htn Maternal Grandfather: breast cancer 50's-60's Maternal Grandmother: ? lung cancer sister- asthma brother-, bipolar disorder Medical History No medical history recorded. Gynecological History Statement/Question Response Abnormal Pap N Date of LMP 08/23/2024 Sexually Active? Y Menses Monthly Y STIs/STDs N HPV Vaccine N Date of Last Pap Smear 07/14/2023 Sexual Problems? N LMP Definite Obstetrics History GPAL:G 0 P 0 0 0 0 Immunizations Vaccine Type Date Status Note Provider Nam e and Address Organization Details Recorded Time Influenza, split virus, quadrivalent, PF 2 completed Not Available [facility] 04/14/2023 06:54:15 Tdap 8 completed Not Available [facility] 04/14/2023 06:54:15 Influenza, recombinant, quadrivalent, PF 2 completed Not Available [facility] 04/14/2023 06:54:15 Influenza, split virus, trivalent, preservative 2 completed Not Available [facility] 04/14/2023 06:54:15 COVID-19, mRNA, LNP-S, PF, 30 mcg/0.3 mL dose 1 completed Elodia Fernandez APRN [address], [place], [address], [facility] 08/23/2024 08:49:12 COVID-19, mRNA, LNP-S, PF, 30 mcg/0.3 mL dose 1 completed Elodia Fernandez APRN [address], [place], [address], [facility] 08/23/2024 08:49:13 Past Encounters Encounter ID Performer Location Encounter Start Date Encounter Closed Date Diagnosis/Indication Diagnosis SNOMED-CT Code Diagnosis ICD10 Code Diagnosis Note [id number] Elodia Fernandez APRN [facility] [address] [place] [address] 08/23/2024 08:26:12 08/23/2024 09:15:26 Adult health examination 319310629 Z00.00 I have reviewed, and updated patient's past medical, surgical, family, and social historyMos t recent dental eye and specialist examsCouns eled about the following: -healthy lifestyle- stress management -exercise 100-150min /week-Limi ting alcohol intake-Dys lipidemia screening- Cervical cancer screening- Age appropriat e immunizati ons Menorrhagia 233772991 N9 2.0 Continue to follow with [facility]. Will check iron panel. Body mass index 30+ - obesity 827317229 Z68.33 Cont healthy diet, portion control. Is working on getting more exercise Health Concerns Section Related Observation LastModified by Organization Detai ls LastModified Time None Recorded Concern Status LastModified by Organization Details LastModified Time None Recorded Payers Encounter Date Sequence Insurance Name Policy Number Policy Drew Covered Member ID Drew Member ID Guarantor Name 08/23/2024 1 [place] [employer] [employer]GRAM [id number] Huerta [id number] Danae Huerta Notes Date Note Type Note Provider Name and Address Organization Details Recorded Time 08/23/2024 text/html Patient presents for YPE. She is fasting for blood work. 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 Does have a history of basal cell.Health updates: had venous ablations last year- significant improvement in leg pain.Still with heavy mensesWork is going wellEats very healthy, sleeping well, managing stress well. Elodia Fernandez, MOTOR VEHICLE EMISSIONS INSPECTOR [address] [facility], [place], [address], [facility] 08/23/2024 09:17:24 OBGyn Episode No OBEpisode recorded.
--- OUTSIDE RECORDS SUMMARY | 2024-09-08 15:06 | XMS_ITS | Clinical Summary ---
Author Organization [facility] Address [address] [place] [address] Care Team Providers Care Carton Inspector Name Role Phone Elodia Steinberg APRN Primary Care Provider Allergies No known active allergies Medications Medication Sig Dispensed Refills Start Date End Date Status amoxicillin (AMOXIL) 500 MG capsuleIndications:S trep throat exposure Take 1 capsule (500 mg total) by mouth 2 (two) times a day. 14 capsule 12/20/2022 Active Active Problems No known active problems Social History Tobacco Use Types Packs/Day Years Used Date Smoking Tobacco: Never Smokeless Tobacco: Never Tobacco Cessation:Counseling Given: Not Answered Alcohol Use Standard Drinks/Week Comments Not Currently 0 (1 standard drink = 0.6 oz pur e alcohol) Sex and Gender Information Value Date Recorded Sex Assigned at Not on file Gender Identity Not on file Sexual Orientation Not on file Last Filed Vital Signs Vital Sign Reading Time Taken Comments Blood Pressure 119/83 12/20/2022 9:09 AM EDT Pulse 88 12/20/2022 9:09 AM EDT Temperature 36.7 ??C (98 ??F) 12/20/2022 9:09 AM EDT Respiratory Rate 16 12/20/2022 9:09 AM EDT Oxygen Saturation 97% 12/20/2022 9:09 AM EDT Inhaled Oxygen Concentration - - Weight 95.3 kg (210 lb) 12/20/2022 9:09 AM EDT Height 170.2 cm (5' 7 ) 12/20/2022 9:09 AM EDT Body Mass Index 32.89 12/20/2022 9:09 AM EDT Plan of Treatment Health Maintenance Due Date Last Done Comments Hepatitis C Virus Screening 1988 HIV Screening 2001 DTaP/Tdap/Td Vaccines (1 - Tdap) 2007 Hepatitis B Vaccines (1 of 3 - 19+ 3-dose series) 2007 Pap Smear (Ages 21-65) 2009 Influenza Vaccine 02/05/2024 05/14/2022 COVID-19 Vaccine (3 - 2023-2 5 season) 2024 08/12/2020, 07/20/2020 HPV Vaccines Aged Out No longer eligi ble based on patient's age to complete this topic Pneumococcal Vaccine: Pediatric (0-5 Years) and At-Risk Patients (6 to 49 Years) Aged Out No longer eligible b ased on patient's age to complete this topic Care Teams Carton Inspector Relationship Specialty Start Date End Date Elodia Steinberg APRN PCP - General Family Medicine 06/20/20
--- OUTSIDE RECORDS SUMMARY | 2024-09-08 15:06 | XMS_ITS | Encounter Summary ---
Author Organization [facility] Address [address] [place] [address] Care Team Providers Care Health Researcher Name Role Phone Elodia Steinberg MABEL Primary Care Provider Encounter Details Date Type Department Care Team (Latest Contact Info) Description 10/06/2020 Lab Requisition [facility] COVID Drive Through [address] [place] [address] [address] [place] [address] Jayce Morales MD [address] [place] [address] Encounter for laboratory testing for COVID-19 virus [...] Priority Date/Time Associated Diagnosis Comments COVID-19 (SARS-COV-2) CARLOS Routine 10/06/2020 3:06 PM EDT Encounter for laboratory testing for COVID-19 virus [ICD-10-CM] documented in this encounter Results * COVID-19 (SARS-CoV-2), CARLOS (In-House) (10/06/2020 3:06 PM EDT) SARS CoV 2 Not Detected Not Detected 10/06/2020 7:21 PM EDT [facility] Comment: Negative results do not preclude SARS-CoV-2 (COVID-19)infection and should not be used as the sole basis for treatment or other patient management decisions. The SARS-CoV-2 (Covid-19) Nucleic Acid Amplification Assay is limited to laboratories certified under the Clinical Laboratory Improvement Amendments of 1988 (CLIA), 42 U.S.C. 263a, to perform high complexity tests. Nucleic acid amplication tests include RT-PCR and TMA. This assay has not been FDA cleared or approved, however, this assay has been authorized by the Food and Drug Administration (FDA) under an Emergency Use Authorization (EUA). ??Validation was completed and performance characteristics established by [facility] as per the FDA and CLIA requirement for this EUA. The Aptima SARS-CoV-2 assay Letter of Authorization, along with the authorized Fact Sheet for Healthcare Providers, the authorized Fact Sheet for Patients, and authorized labeling are available on the FDA website: https://www.fda.gov/medical-devices/omoqscvaq-qybyorfubc-huqolzu-devices/emergen - x-pvbljrfguscyuy-gisqjyy-devices. Performed at [facility], [place], [place] ??[place] License [id number] ??CLIA [id number] Source Nasopharyngeal 10/06/2020 7:21 PM EDT [facility] Comment:Performed at [facility], [place] license No. [id number] CLIA No. [id number] Microbiology Nasopharyngeal swab / Unknown 10/06/2020 3:06 PM EDT 10/06/2020 3:06 PM EDT Jayce Morales MD MICROBIOLOGY - GENER AL ORDERABLES [facility] [address] [place] [address] documented in this encounter Visit Diagnoses Diagnosis Encounter for laboratory testing for COVID-19 virus documented in this encounter Care Teams Health Researcher Relationship Specialty Start Date End Date Elodia Steinberg APRN PCP - General Family Medicine 06/20/20 documented as of this encounter
--- OUTSIDE RECORDS SUMMARY | 2024-09-08 15:06 | XMS_ITS | Clinical Summary ---
Author Organization [facility] Address [address] [place] [address] Care Team Providers Care Lpn Rn Name Role Phone Elodia Steinberg APRN Primary Care Provider [phone] Allergies No known active allergies Medications No known medications Social History Tobacco Use Types Packs/Day Years Used Date Smoking Tobacco: Never Assessed Sex and Gender Information Value Date Recorded Sex Assigned at Not on file Gender Identity Not on file Sexual Orientation Not on file Job Start Date Occupation Industry Not on file Not on file Not on file Last Filed Vital Signs Vital Sign Reading Time Taken Comments Blood Pressure - - Pulse - - Temperature - - Respiratory Rate - - Oxygen Saturation - - Inhaled Oxygen Concentration - - Weight 90.7 kg (200 lb) 05/15/2023 8:59 AM EST Height 170.2 cm (5' 7 ) 05/15/2023 8:59 AM EST Body Mass Index 31.32 05/15/2023 8:59 AM EST Plan of Treatment Health Maintenance Due Date Last Done Comments Hepatitis C Screening 1988 COVID-19 Vaccine (#1) 1988 Depression Screening 2000 Preventative Health Evaluation 2006 Cervical Cancer Screening (Pap Smear) 2009 Influenza Vaccine (#1) 2024 7, 04/25/2011, 06/15/2007 BMI Counseling 07/14/2024 07/14/2023, 02/2023, 06/06/2023, Additional history exists DTap / Tdap / Td (9 - Td or Tdap) 07/23/2027 07/23/2017, 01/24/2014, 06/15/2007, Additional history exists Hepatitis B Vaccines Completed 02/29/2000, 09/26/1999, 08/29/1999 Pneumococcal Vaccine Aged Out No long er eligible based on patient's age to complete this topic RSV Ped < 20 months Aged Out No longe r eligible based on patient's age to complete this topic Care Teams Lpn Rn Relationship Specialty Start Date End Date Elodia Steinberg, MABEL [address] [facility] [place] [address] PCP - General Family Medicine 05/13/22
--- OUTSIDE RECORDS SUMMARY | 2024-09-08 15:06 | XMS_ITS | Clinical Summary ---
Author Organization [facility] Address [address] [place] [address] Care Team Providers Care Washing Machine Striper Name Role Phone Idris Elodia Primary Care Provider [phone] Allergies No known active allergies Medications miSOPROStoL (CYTOTEC) 200 mcg tablet 2 tablets orally night before the procedure 2 tablet 4 Active Active Problems Problem Noted Date Diagnosed Date Abnormal uterine bleeding 08/18/2023 Family History Medical History Relation Comments Coronary artery disease Father Diabetes type II Father Cancer Maternal Grandfather unknown Breast cancer Maternal Grandmother Relation Status Comments Father Maternal Grandfather Maternal Grandmother Social History Tobacco Use Types Packs/Day Years Used Date Smoking Tobacco: Never Smokeless Tobacco: Never Tobacco Cessation:Counseling Given: Not Answered Alcohol Use Standard Drinks/Week Comments Yes 0 (1 standard drink = 0.6 oz pur e alcohol) on HOLIDAYS Humiliation, Afraid, Rape, and Kick questionnair e Answer Date Recorded Within the last year, have y ou been afraid of your partner or ex-partner? No 07/14/2023 Within the last year, have y ou been humiliated or emotionally abused in other ways by your partner or ex-partner? No Within the last year, have y ou been kicked, hit, slapped, or otherwise physically hurt by your partner or ex-partner? No 07/14/2023 Within the last year, have y ou been raped or forced to have any kind of sexual activity by your partner or ex-partner? No 07/14/2023 PHQ-2 Answer Date Recorded PHQ-2 Score 0 07/14/2023 Comments No Sex and Gender Information Value Date Recorded Sex Assigned at Not on file Legal Sex Female 2:38 PM EST Gender Identity Not on file Sexual Orientation Not on file Last Filed Vital Signs Vital Sign Reading Time Taken Comments Blood Pressure 109/78 01/16/2024 3:20 PM EDT Pulse 70 01/16/2024 3:20 PM EDT Temperature 36.4 ??C (97.6 ??F) 07/21/2019 10:[address] Respiratory Rate 18 07/21/2019 10:54 PM EST Oxygen Saturation 96% 07/21/2019 10:54 PM EST Inhaled Oxygen Concentration - - Weight 100 kg (221 lb 3.2 oz) 01/16/2024 3:20 PM EDT Height 172.7 cm (5' 8 ) 07/21/2019 4:31 PM EST Body Mass Index 33.63 07/21/2019 4:31 PM EST Plan of Treatment Health Maintenance Due Date Last Done Comments HIV Screening 1988 Hepatitis C Screening 2006 Hepatitis B Vaccines (1 of 3 - 19+ 3-dose series) 2007 COVID-19 Vaccine ( season) 2024 05/18/2021, 08/12/2020, 08/12/2020, Additional history exists Influenza Vaccine (#1) 2024 2, 07/13/2021, 07/13/2021 Pap Smear 07/14/2026 07/14/2023 DTaP,Tdap,and Td Vaccines (2 - Td or Tdap) 07/23/2027 07/23/2017 Cervical Cancer Screening 07/14/2028 HPV/Cotest 07/14/2028 07/14/2023 Zoster Vaccines (1 of 2) 2038 HPV Vaccines Aged Out No longer eligi ble based on patient's age to complete this topic Hepatitis A Vaccines Aged Out No long er eligible based on patient's age to complete this topic MMR Vaccines Aged Out No longer eligi ble based on patient's age to complete this topic Meningococcal Vaccine Aged Out No kit karla eligible based on patient's age to complete this topic Pneumococcal Vaccine: Pediatrics (0 to 5 Years) and At-Risk Patients (6 to 64 Years) Aged Out No longer eligible based on patient's age to complete this topic Procedures Procedure Name Priority Date/Time Associated Diagnosis Comments PAP TEST Routine 07/14/2023 2:50 PM EST Encounter for annual routine gynecological examination HPV, HIGH RISK, NAAT, W/ REFLEX TO GENOTYPES 16 AND 18/45 Routine 07/14/2023 2:50 PM EST Encounter for annual routine gynecological examination from Last 3 Months or Most Recently Relevant to Health Maintenance Results * HPV, high risk, NAAT (07/14/2023 2:50 PM EST) HPV, high-risk Negative Negative 07/15/2023 3:02 PM EST [facility] Brushing Cervix uteri structure / Unknown Non-blood Collection / Unknown 07/14/2023 2:50 PM EST 07/14/2023 6:12 PM EST Narrative [facility] - 07/15/2023 3:02 PM EST Negative results indicate Human Papillomavirus (HPV) E6/E7 viral messenger RNA of the 14 high-risk types of HPV was not detected. NOTE: Negative results may occur with HPV E6/E7 mRNA concentrations that are below the pre-set limit of detection threshold for this assay. Results of this test should only be interpreted in conjunction with information available from the clinical evaluation of the patient and patient history. Eve Davila MD LAB MICROBIOLOGY - GENERAL ORDERABLES Final Result [facility] [address] [place] [address], * Pap Test (07/14/2023 2:50 PM EST) Case Report Cytology ?Case: [id number] ? Authorizing Provider: ??Eve Davila MD ?Collected: ? 07/14/2023 1450 ? Ordering Location: ? [facility] Department of Received: ?07/15/2023 0817 ? Women's Health ? First Screen: ?Diya Benavides CT (ASCP) ? Specimen: ?Cytopathology, screening PAP test, Cervix ? 07/15/2023 3:02 PM EST [facility] LMP 07/06/2023 07/15/2023 3:02 PM EST [facility] Interpretation Negative for intraepithelial lesion or malignancy 07/15/2023 3:02 PM EST [facility] Specimen Adequacy Satisfactory for evaluation, endocervical/verma sformation zone component present 07/15/2023 3:02 PM EST [facility] Specimen Processing Thin Prep pap with manual screen/rescreen or review 07/15/2023 3:02 PM EST [facility] Educational Note The Pap test is a screening test which carries an inherent false negative rate. These test results should be correlated with the patient's clinical findings and history. 07/15/2023 3:02 PM EST [facility] Embedded Images 3:02 PM EST [facility] High Risk HPV Nucleic Acid Detection Negative 07/15/2023 3:02 PM EST [facility] Comment: Negative results indicate HPV E6/E7 mRNA of the 14 high-risk types of HPV was not detected. NOTE: Negative results may occur with HPV E6/E7 mRNA concentrations that are below the pre-set limit of detection threshold for this assay. Results of this test should only be interpreted in conjunction with information available from the clinical evaluation of the patient and patient history. The APTIMA HPV Assay is a target amplification nucleic acid probe test for the in vitro qualitative detection of E6/E7 viral messenger RNA (mRNA), from 14 high- risk HPV types of human papillomavirus (HPV) (16/18/31/33/35/39/45/51/52/56/58/59/66/68) in cervical specimens collected in ThinPrep Pap Test vials containing PreservCyt Solution. The APTIMA HPV Assay does not discriminate between the 14 high-risk types. ??If clinically indicated, positive samples may be additionally tested with the APTIMA HPV 16 18/45 Genotype Assay to assess the presence or absence of high- risk HPV genotypes 16, 18 and/or 45. These results are not intended to be the sole means for clinical diagnosis and should always be correlated with other patient findings, including cytology, histology, and clinical evaluation. APTIMA HPV Assay assay was performed and reported by the Microbiology Laboratory, Department of Pathology and Laboratory Medicine at [facility] Brushing Cervix uteri structure / Unknown Non-blood Collection / Unknown 07/14/2023 2:50 PM EST 07/15/2023 8:17 AM EST us Eve Davila MD LAB PATHOLOGY/CYTOLOGY ORD ERABLES Final Result [facility] [address] [place] [address], [place] [phone] from Last 3 Months or Most Recently Relevant to Health Maintenance Insurance [employer] Care Teams Washing Machine Striper Relationship Specialty Start Date End Date Elodia Steinberg [address] [place] [phone] PCP - General Family Medicine 05/02/23
--- OUTSIDE RECORDS SUMMARY | 2024-09-08 15:06 | XMS_ITS | Encounter Summary ---
Author Organization [facility] Address [address] [place] [address] Care Team Providers Care Applications Chemist Name Role Phone Elodia Steinberg MABEL Primary Care Provider Encounter Details Date Type Department Care Team (Latest Contact Info) Description [facility] [facility] [address] [place] [address] [address] [place] [address] Jayce Morales MD [address] [place] [address] Encounter for laboratory testing for COVID-19 virus [...] Associated Diagnosis Comments COVID-19 (SARS-COV-2) CARLOS Routine 10/13/2020 2:15 PM EDT Encounter for laboratory testing for COVID-19 virus [ICD-10-CM] documented in this encounter Results * COVID-19 (SARS-CoV-2), CARLOS (In-House) (10/13/2020 2:15 PM EDT) SARS CoV 2 Not Detected Not Detected 10/13/2020 6:24 PM EDT [facility] Comment: Negative results do not [...] was completed and performance characteristics established by [facility] as per the FDA and CLIA requirement for this EUA. The Aptima SARS-CoV-2 assay Letter of Authorization, along with the authorized Fact Sheet for Healthcare Providers, the authorized Fact Sheet for Patients, and authorized labeling are available on the FDA website: https://www.fda.gov/medical-devices/cipiwvooh-nxmdygrehf-hobfdxf-devices/emergen - p-wtwbdlxhrtuved-vhbmige-devices. Performed at [facility], [place], [place] ??[place] License 0385 ??CLIA [id number] Source Nasopharyngeal 10/13/2020 6:24 PM EDT [facility] Comment:Performed at [facility], [facility], [place] license No. [id number] CLIA No. [id number] Microbiology Nasopharyngeal swab / Unknown 10/13/2020 2:15 PM EDT 10/13/2020 2:15 PM EDT Jayce Morales MD MICROBIOLOGY - GENER AL ORDERABLES [facility] [address] [place] [address] documented in this encounter Visit Diagnoses Diagnosis Encounter for laboratory testing for COVID-19 virus documented in this encounter Care Teams Applications Chemist Relationship Specialty Start Date End Date Elodia Steinberg APRN PCP - General Family Medicine 06/20/20 documented as of this encounter
--- OUTSIDE RECORDS SUMMARY | 2024-09-08 15:06 | XMS_ITS | Encounter Summary ---
Author Organization [facility] Address [address] [place] [address] Care Team Providers Care Bridal Consultant Name Role Phone Elodia Steinberg MABEL Primary Care Provider Encounter Details Date Type Department Care Team (Latest Contact Info) Description 09/01/2020 Lab Requisition [facility] [address] Through [address] [place] [address] [address] [place] [address] Jayce Morales MD [address] [place] [address] Encounter for laboratory testing for COVID-19 virus [...] Comments COVID-19 (SARS-COV-2) - [facility] Routine 09/01/2020 2:23 PM EST Encounter for laboratory testing for COVID-19 virus [ICD-10-CM] documented in this encounter Results * COVID-19 (SARS-COV-2) ([facility]) (09/01/2020 2:23 PM EST) COVID-19 RT-PCR NOT-DETEC RIYA Not-Detec riya 09/02/2020 3:10 PM EST [facility] Comment:Interpretation: The viral RNA was not detected, making the COVID-19 diagnosis less likely. Clinical correlation is highly recommended.Final report signed by Roel Solorzano, Ph.D., Laboratory DirectorTests performed at [facility] Microbiology Nasopharyngeal swab / Unknown 09/01/2020 2:23 PM EST 09/01/2020 2:23 PM EST Narrative JONATHAN CORTEZ - 09/02/2020 3:10 PM EST Performed by [facility] [address] [place] [address], CLIA# [id number] and [place] License# [id number] Jayce Morales MD MICROBIOLOGY - GENER AL ORDERABLES JONATHAN CORTEZ documented in this encounter Visit Diagnoses Diagnosis Encounter for laboratory testing for COVID-19 virus documented in this encounter Care Teams Bridal Consultant Relationship Specialty Start Date End Date Elodia Steinberg, MABEL PCP - General Family Medicine 06/20/20 documented as of this encounter
--- OUTSIDE RECORDS SUMMARY | 2024-09-08 15:06 | XMS_ITS | Clinical Summary ---
Author Organization [facility] Address [address] [place] [phone] Care Team Providers Care Tankerman Name Role Phone Idris Elodia MUSIC VIDEO PRODUCER Primary Care Provider [phone] Social History Tobacco Use Types Packs/Day Years Used Date Smoking Tobacco: Never Assessed Comments Unknown Sex and Gender Information Value Date Recorded Sex Assigned at Not on file Legal Sex Female 7:42 AM EST Gender Identity Not on file Sexual Orientation Not on file Obstetrics History Last Filed Vital Signs Vital Sign Reading [...] Health Maintenance Due Date Last Done Comments IPV Vaccines (5 of 5 - 5-dose series) 1992 12/22/1989, 12/22/1989, 1988, Additional history exists COVID-19 Vaccine (#1) 1993 Pneumococcal Vaccine: Pediatrics (0 to 5 Years) and At-Risk Patients (6 to 64 Years) (1 of 2 - PCV) 2007 Cervical Cancer Screening: Pap Smear 2009 Depression Screening 08/10/2023 HIV Screening 08/10/2023 Hepatitis C Screening 08/10/2023 Social Influencers of Health Screening 08/10/2023 Influenza Vaccine (#1) 2024 7, 04/25/2011, 06/15/2007 DTaP,Tdap,and Td Vaccines (10 - Td or Tdap) 07/23/2027 07/23/2017, 01/24/2014, 06/15/2007, Additional history exists HIB Vaccines Completed 12/22/1989 MMR Vaccines Completed 08/22/1998, 11/14/1989 Hepatitis B Vaccines Completed 02/29/2000, 09/26/1999, 08/29/1999 Meningococcal ACWY Vaccine Aged Out 06/15/2007 N o longer eligible based on patient's age to complete this topic Varicella Vaccines Completed 12/30/2007, 09/18/1989 HPV Vaccines Aged Out No longer eligi ble based on patient's age to complete this topic Hepatitis A Vaccines Aged Out No long er eligible based on patient's age to complete this topic Meningococcal B Vacine Aged Out No lo nger eligible based on patient's age to complete this topic RSV Immunization Patients Under 20 months Aged Out No longer eligible based on patient's age to complete this topic Care Teams Tankerman Relationship Specialty Start Date End Date Elodia Steinberg NP [address] [place] [address] PCP - General 05/13/22
--- OUTSIDE RECORDS SUMMARY | 2024-09-08 15:06 | XMS_ITS | Encounter Summary ---
Author Organization [facility] Address [address] [place] [address] Care Team Providers Care Battery Container Finishing Hand Name Role Phone Elodia Steinberg MABEL Primary Care Provider Encounter Details Date Type Department Care Team (Latest Contact Info) Description 09/08/2020 Lab Requisition [facility] COVID [address] Through [address] [place] [address] [address] [place] [address] Jayce Morales MD [address] [place] [address] Encounter for laboratory testing for COVID-19 virus [...] Comments COVID-19 (SARS-COV-2) - [facility] Routine 09/08/2020 2:54 PM EST Encounter for laboratory testing for COVID-19 virus [ICD-10-CM] documented in this encounter Results * COVID-19 (SARS-COV-2) ([facility]MA4) (09/08/2020 2:54 PM EST) COVID-19 RT-PCR NOT-DETEC RIYA Not-Detec riya 09/09/2020 2:17 PM EST [facility] Comment:Interpretation: The viral RNA was not detected, making the COVID-19 diagnosis less likely. Clinical correlation is highly recommended.Final report signed by Roel Solorzano, Ph.D., Laboratory DirectorTests performed at [facility] Microbiology Nasopharyngeal swab / Unknown 09/08/2020 2:54 PM EST 09/08/2020 2:54 PM EST Narrative JONATHAN CORTEZ - 09/09/2020 2:17 PM EST Performed by [facility]., [address] [place] [address], CLIA# [id number] and [place] License# [id number] Jayce Morales MD MICROBIOLOGY - GENER AL ORDERABLES JONATHAN CORTEZ documented in this encounter Visit Diagnoses Diagnosis Encounter for laboratory testing for COVID-19 virus documented in this encounter Care Teams Battery Container Finishing Hand Relationship Specialty Start Date End Date Elodia Steinberg APRN PCP - General Family Medicine 06/20/20 documented as of this encounter
--- OUTSIDE RECORDS SUMMARY | 2024-09-08 15:06 | XMS_ITS ---
Author Name [facility] Organization Unknown Results Test Name/Text Value Interpretation Date Range Source Iron Satn MFr SerPl 12%(calc) Below low normal [id number] 16 - 45 [facility] Ferritin SerPl-mCnc 6ng/mL Below low normal [id number] 16 - 154 [facility] Iron SerPl-mCnc 39mcg/dL Below low normal [id number] 40 - 190 [facility] TIBC SerPl-mCnc 326mcg/dL(calc) Normal [id number] 250 - 450 [facility] Basophils/leuk NFr Bld Auto 0.6% Normal [id number] [facility] Eosinophil/leuk NFr Bld Auto 1.1% Normal [id number] [facility] WBC # Bld Auto 5.3Thousand/uL Normal [id number] 3.8 - 1 0.8 [facility] Platelet # Bld Auto 344Thousand/uL Normal [id number] 140 - 400 [facility] Eosinophil # Bld Auto 58cells/uL Normal [id number] 15 - 500 [facility] RBC # Bld Auto 4.04Million/uL Normal [id number] 3.8 - 5 .1 [facility] Basophils # Bld Auto 32cells/uL Normal [id number] 0 - 200 [facility] MCHC RBC Auto-mCnc 31.4g/dL Below low normal [id number] 3 2 - 36 [facility] Neutrophils # Bld Auto 3063cells/uL Normal [id number] 1500 - 7800 [facility] Lymphocytes/leuk NFr Bld Auto 29.3% Normal [id number] [facility] PMV Bld Sony-Hilda 10.9fL Normal [id number] 7.5 - 12 .5 [facility] Neutrophils/leuk NFr Bld Auto 57.8% Normal [id number] [facility] Monocytes/leuk NFr Bld Auto 11.2% Normal [id number] [facility] Hgb Bld-mCnc 11.2g/dL Below low normal [id number] 11.7 - 15.5 [facility] MCH RBC Qn Auto 27.7pg Normal [id number] 27 - 33 [facility] MCV RBC Auto 88.4fL Normal [id number] 80 - 100 [facility] T RDW RBC Auto-Rto 13% Normal [id number] 11 - 15 [facility] Monocytes # Bld Auto 594cells/uL Normal [id number] 200 - 950 [facility] Hct VFr Bld Auto 35.7% Normal [id number] 35 - 45 [facility] Lymphocytes # Bld Auto 1553cells/uL Normal [id number] 850 - 3900 [facility] BUN/Creat SerPl SEE NOTE: Normal [id number] 6 - 22 [facility] Albumin SerPl-mCnc 4.3g/dL Normal [id number] 3.6 - 5. 1 [facility] Glucose SerPl-mCnc 88mg/dL Normal [id number] 65 - 99 [facility] eGFRcr SerPlBld CKD-EPI 2020 102mL/min/1.73m2 Normal [id number] - [facility] Creat SerPl-mCnc 0.77mg/dL Normal [id number] 0.5 - 0.97 [facility] Globulin Ser Calc-mCnc 2.9g/dL(calc) Normal [id number] 1.9 - 3.7 [facility] Calcium SerPl-mCnc 9.2mg/dL Normal [id number] 8.6 - 10 .2 [facility] ALP SerPl-cCnc 49U/L Normal [id number] 31 - 125 QU EST Prot SerPl-mCnc 7.2g/dL Normal [id number] 6.1 - 8.1 [facility] AST SerPl-cCnc 10U/L Normal [id number] 10 - 30 QU EST Chloride SerPl-sCnc 103mmol/L Normal [id number] 98 - 110 [facility] Potassium SerPl-sCnc 4.1mmol/L Normal [id number] 3.5 - 5.3 [facility] Sodium SerPl-sCnc 135mmol/L Normal [id number] 135 - 146 [facility] ALT SerPl-cCnc 8U/L Normal [id number] 6 - 29 QU EST CO2 SerPl-sCnc 28mmol/L Normal [id number] 20 - 32 QU EST Albumin/Glob SerPl 1.5(calc) Normal [id number] 1 - 2.5 [facility] BUN SerPl-mCnc 12mg/dL Normal [id number] 7 - 25 QU EST Bilirub SerPl-mCnc 0.3mg/dL Normal [id number] 0.2 - 1. 2 [facility] TSH SerPl-aCnc 1.43mIU/L Normal [id number] QU EST Trigl SerPl-mCnc 69mg/dL Normal [id number] - 150 [facility] NonHDLc SerPl-mCnc 129mg/dL(calc) Normal [id number] - 1 30 [facility] Cholest/HDLc SerPl 3(calc) Normal [id number] - 5 [facility] HDLc SerPl-mCnc 64mg/dL Normal [id number] - Q [facility] Cholest SerPl-mCnc 193mg/dL Normal [id number] - 200 [facility] LDLc SerPl Calc-mCnc 113mg/dL(calc) Above high normal [id number] [facility] AP CYTOLOGY SPECIMEN PROCESSING Thin Prep pap with manual screen/rescreen or review Normal [id number] [facility] TRAFFIC OR SYSTEM DISPATCHER SPECIMEN ADEQUACY Satisfactory for evaluation, endocervical/trans formation zone component present Normal [id number] [facility] AP LMP 07/06/2023 Normal [id number] [facility] TRAFFIC OR SYSTEM DISPATCHER HR HPV RESULT Negative Normal [id number] [facility] TRAFFIC OR SYSTEM DISPATCHER EDUCATIONAL NOTE The Pap test is a screening test which carries an inherent false negative rate. These test results should be correlated with the patient's clinical findings and history. Normal [id number] [facility] HPV, HIGH-RISK Negative Normal [id number] - [facility] History of Medication Use Medication Directions Dispensed Refills Start Date End Date Stat fluconazole 150 mg tablet TAKE 1 TABLET BY MOUTH NOW THEN REPEAT IN 3 DAYS NEEDED 10/07/2023 completed penicillin V potassium 250 mg tablet 10/07/2023 completed Problems Problem Status Onset Date Problem Type Date of Resolution Source Basal cell carcinoma of skin active ProblemAct [facility] Group A Streptococcus not isolated active 2023-08-15 ProblemAct [facility] Pain due to varicose veins of lower extremity active 2023-08-15 ProblemAct [facility] T Menorrhagia active 2023-08-15 ProblemAct [facility] T Hyperlipidemia active ProblemAct [facility] T Strep throat exposure active [facility] Fat[facility], unspecified type active EncounterDiagnosisAct [facility] Body mass index 30+ - obesity active ProblemAct [facility] T Active immunization active ProblemAct [facility] T Abnormal uterine bleeding active 2023-08-18 ProblemAct [facility] Jaw pain active EncounterDiagnosisAct [facility] Immunizations Vaccine Date Source Lot Number Status Seasonal, quadrIvalent, chung mbinant, injectable influenza vaccine, preservative free 07/13/2021 E[facility]_GRANBY[facility] [id number] completed SARS-COV-2 (COVID-19) vaccin e, mRNA, spike protein, LNP, preservative free, 30 mcg/0.3mL dose 08/12/2020 E[facility] [id number] completed influenza, seasonal, injectable 07/13/2021 [facility] completed tetanus toxoid, reduced diph theria toxoid, and acellular pertussis vaccine, adsorbed 07/23/2017 [facility] completed SARS-COV-2 (COVID-19) vaccin e, UNSPECIFIED 07/20/2020 [facility] completed SARS-COV-2 (COVID-19) vaccin e, UNSPECIFIED 08/12/2020 [facility] completed SARS-COV-2 (COVID-19) vaccin e, mRNA, spike protein, LNP, preservative free, 30 mcg/0.3mL dose 07/20/2020 ENS_GRANBYCT [id number] completed Influenza, injectable, quadr ivalent, preservative free 05/14/2022 ENS_GRANBY[facility] [id number] completed SARS-COV-2 (COVID-19) vaccin e, UNSPECIFIED 05/18/2021 [facility] completed
--- OUTSIDE RECORDS SUMMARY | 2024-09-08 15:06 | XMS_ITS | Encounter Summary ---
Author Organization [facility] Address [address] [place] [id number] Care Team Providers Care Aircraft Quality Control Inspector Name Role Phone IdrisElodia MABEL Primary Care Provider Encounter Details Date Type Department Care Team (Latest Contact Info) Description 06/20/2020 Lab Requisition [facility] [address] [place] [address] [address] [place] [address] Kip Bullock PA-C [address] [place] [id number] Encounter for laboratory testing for COVID-19 virus Social History Tobacco Use Types Packs/Day Years Used Date Smoking Tobacco: Never Assessed Sex and Gender Information Value Date Recorded Sex Assigned at Not on file Gender Identity Not on file Sexual Orientation Not on file COVID-19 Exposure Response Date Recorded In the last month, have you been in contact with someone who was confirmed or suspected to have Coronavirus / COVID-19? No / Unsure 06/20/2020 2:29 PM EST documented as of this encounter Plan of Treatment Not on file documented as of this encounter Procedures Procedure Name Priority Date/Time Associated Diagnosis Comments COVID-19 (SARS-COV-2) - [facility]4 LAB Routine 06/20/2020 2:39 PM EST Encounter for laboratory testing for COVID-19 virus [ICD-10-CM] documented in this encounter Results * COVID-19 (SARS-COV-2) (SEMA4) (06/20/2020 2:39 PM EST) COVID-19 RT-PCR NOT-DETECT ED Not-Detec travon 06/21/2020 10:56 PM EST [facility] [place] Comment:Interpretation: The viral RNA was not detected, making the COVID-19 diagnosis less likely. Clinical correlation is highly recommended.Final report signed by Jeronimo Tucker, Ph.D., [facility], Laboratory DirectorTests performed at [facility] Nasopharyngeal swab / Unknown 06/20/2020 2:39 PM EST 06/20/2020 2:39 PM EST Narrative [facility] [place] - 06/21/2020 10:56 PM EST Performed by [facility] [address] [place] [address], CLIA# [id number] and [place] License# [id number] Kip Bullock PA-C MICROBIOLOGY - NERAL ORDERABLES [facility] documented in this encounter Visit Diagnoses Diagnosis Encounter for laboratory testing for COVID-19 virus documented in this encounter Care Teams Aircraft Quality Control Inspector Relationship Specialty Start Date End Date Elodia Steinberg APRN PCP - General Family Medicine 06/20/20 documented as of this encounter
--- OUTSIDE RECORDS SUMMARY | 2024-09-08 15:06 | XMS_ITS | Encounter Summary ---
Author Organization [facility] Address [address] [place] [address] Care Team Providers Care Simulation Technician Name Role Phone Elodia Steinberg MABEL Primary Care Provider Encounter Details Date Type Department Care Team (Latest Contact Info) Description 09/14/2020 Lab Requisition [facility] COVID [address] Through [address] [place] [address] [address] [place] [address] Jayce Morales MD [address] [place] [address] Encounter for laboratory testing for COVID-19 virus [...] Comments COVID-19 (SARS-COV-2) - [facility] LAB Routine 09/14/2020 12:08 PM EST Encounter for laboratory testing for COVID-19 virus [ICD-10-CM] documented in this encounter Results * COVID-19 (SARS-COV-2) (SEMA4) (09/14/2020 12:08 PM EST) COVID-19 RT-PCR NOT-DETEC RIYA Not-Detec riya 09/15/2020 9:12 AM EST [facility] [place] Comment:Interpretation: The viral RNA was not detected, making the COVID-19 diagnosis less likely. Clinical correlation is highly recommended.Final report signed by Roel Solorzano, Ph.D., Laboratory DirectorTests performed at [facility] Nasopharyngeal swab / Unknown 09/14/2020 12:08 PM EST 09/14/2020 12:09 PM EST Narrative [facility] - 09/15/2020 9:12 AM EST Performed by [facility] [address] [place] [address], CLIA# [id number] and [place] License# [id number] Jayce Morales MD MICROBIOLOGY - GENER AL ORDERABLES [facility] documented in this encounter Visit Diagnoses Diagnosis Encounter for laboratory testing for COVID-19 virus documented in this encounter Care Teams Simulation Technician Relationship Specialty Start Date End Date Elodia Steinberg APRN PCP - General Family Medicine 06/20/20 documented as of this encounter
--- OUTSIDE RECORDS SUMMARY | 2024-09-08 15:06 | XMS_ITS | Data Portability ---
Author Organization [place] [facility], [facility] Address [address] [place] [address] Care Team Providers Care Documentation Liaison Name Role Phone OLGA ROSALES Straightening Roll Operator SEAN WANG Quarter Supervisor ALEKSANDRA STEINBERG Primary Care Provider [phone] Assessment No assessment recorded. Plan of Treatment Reminders Order Date Submit Date Provider Last Modified By Organization Details Last Modified Time Details Appointments PHYSICAL EXAM 45 2025 08:30A M Aleksandra Steinberg, RELIABILITY SPECIALIST Not available Not available Not available Lab iron + TIBC + ferritin, serum 2024 025 [facility], [address], [address], [place], [address], 08/24/2024 10:08:42 urinalysi s, dipstick 2024 025 [email or web address] [facility], [address] [facility], [place], [address], 08/23/2024 08:52:47 CBC w/ auto diff 2024 025 [facility], [address] [facility], [address], [place], [address], 08/24/2024 10:08:44 CMP, serum or plasma 2024 025 [employer], [address], [address], [place], [address], 08/24/2024 10:08:43 TSH, serum or plasma 2024 025 [facility], [address] [facility] [place] [address], [address], [place], [address], 08/24/2024 10:08:44 lipid panel, serum 2024 025 [facility], [address] [facility] [address], [address], [place], [address], 08/24/2024 10:08:43 iron + TIBC + ferritin, serum 2023 024 [facility], [address] [facility] [address], [address], [place], [address], 08/16/2023 07:24:44 CBC w/ auto diff 2023 024 [facility], [address] [facility] [address], [address], [place], [address], 08/16/2023 07:24:46 CMP, serum or plasma 2023 024 [facility], [address] [facility] [place] [address], [address], [place], [address], 08/16/2023 07:24:45 TSH, serum or plasma 2023 024 [facility], [address] [facility] [place] [address], [address], [place], [address], 08/16/2023 07:24:46 lipid panel, serum 2023 024 [facility], [address] [facility] [address] [address], [address], [place], [address], 08/16/2023 07:24:45 urinalysi s, dipstick 2023 024 [email or web address] 66 [facility], [address], [place], [address], 08/15/2023 08:50:03 Referral otolaryng ologist referral - 1 week new onset pulsatile right ear tinnitus 2023 024 BRIDGET Camejo MD, [address] [place], [address], 10/07/2023 13:52:56 vein specialis t referral - varicose vein pain 2023 024 [facility], [address], [address], [place], [address], 09/10/2023 08:10:10 Procedures None recorded. Surgeries None recorded. Imaging None recorded. Medication Orders lorazepam 0.5 mg tablet 2023 024 [email or web address] [id number], [address] [place], [address], 08/23/2024 08:48:59 Patient TargetsNo targets recorded. Patient Instructions Encounter Date Encounter Id Patient Instructions Last Modified By Organization Details Last Modified Time 10/07/2023 [id number] A total of 45 minutes was spent during the encounter with greater than 50% of the office visit dedicated to retrieving, reviewing and recording tests & laboratory results, formulation of treatment options, coordination of care, including authoring referral request if needed, counseling and educating, development of follow up plans and authoring the above office note . 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 r Subjective pulsatile tinnitus of right ear 1 week new onset pulsatile right ear tinnitus 1 week new onset pulsatile right ear tinnitus Referring Physician: Michelle Garces, Family Medicine, Encounter Date: 10/07/2023 Results Created Date Observation Date Name Description Value Unit Range Abnormal Flag Note LastModifiedBy Organization Detail LastModifiedTime 08/15/19 24 08/16/2023 IRON, TIBC AND YVETTE TIN PANEL iron, total 91 mcg/d L 40-190 normal Not Available [facility] [place] [facility] [address], [place], [address], 08/16/2023 07:24:44 08/15/19 24 08/16/2023 IRON, TIBC AND YVETTE TIN PANEL iron binding capacity 328 mcg/d L_(ca lc) 250-45 0 normal Not Available [facility] [place] [facility] [address], [place], [address], 08/16/2023 07:24:44 08/15/19 24 08/16/2023 IRON, TIBC AND YVETTE TIN PANEL % saturation 28 %_(ca lc) 16-45 normal Not Available [facility] [place] [facility] [address], [place], [address], 08/16/2023 07:24:44 08/15/19 24 08/16/2023 IRON, TIBC AND YVETTE TIN PANEL ferritin 5 NG/mL 16-154 low Not Available [facility] [address], [place], [address], 08/16/2023 07:24:44 08/15/19 24 08/16/2023 LIPID PANEL WITH REFLE X TO DIREC T LDL cholesterol, total 197 mg/dL <200 normal Not Available [facility] [place] [facility] [address], [place], [address], 08/16/2023 07:24:45 08/15/19 24 08/16/2023 LIPID PANEL WITH REFLE X TO DIREC T LDL HDL cholesterol 61 mg/dL > or = 50 normal Not Available [facility] [place] [facility] [address], [place], [address], 08/16/2023 07:24:45 08/15/19 24 08/16/2023 LIPID PANEL WITH REFLE X TO DIREC T LDL triglyceride s 77 mg/dL <150 normal Not Available [facility] [place] [facility] [address] [place], [address], 08/16/2023 07:24:45 08/15/19 24 08/16/2023 LIPID PANEL WITH REFLE X TO DIREC T LDL LDL-choleste rol 119 mg/dL _(kathia c) high Refer ence range : <100 Rambo able range <100 mg/dL for prima ry preve ntion ; <70 mg/dL for patie nts with CHD or diabe tic patie nts with > or = 2 CHD risk facto rs. LDL-C is now calcu lated using the Kirti n-Hop kins calcu yesenia n, which is a valid ated novel prashanth mulligante r accur acy than the Fried chidi equat ion in the estim ation of LDL-C . Kirti aranda SS et al. PRINCE. 2013; 310(1 9): 2061- 2068 (http ://ed ucati on.[employer] Krystyna [employer]/f aq/FA Q164) Not Available [facility] [place] [facility] [address], [place], [address], 08/16/2023 07:24:45 08/15/19 24 08/16/2023 LIPID PANEL WITH REFLE X TO DIREC T LDL chol/HDLC ratio 3.2 (calc ) <5.0 normal Not Available [facility] [place] [facility] [address] [place], [address], 08/16/2023 07:24:45 08/15/19 24 08/16/2023 LIPID PANEL WITH REFLE X TO DIREC T LDL non HDL cholesterol 136 mg/dL _(kathia c) <130 high For patie nts with diabe dayne plus 1 major ASCVD risk facto r, treat ing to a non-H DL-C goal of <100 mg/dL (LDL- C of <70 mg/dL ) is shazia joaquin n. Not Available [facility] [address], [place], [address], 08/16/2023 07:24:45 08/15/19 24 08/16/2023 COMPR EHENS GILDA METAB OLIC PANEL glucose 82 mg/dL 65-99 normal Fasti ng refer ence inter darren Not Available [facility] [address], [place], [address], 08/16/2023 07:24:45 08/15/19 24 08/16/2023 COMPR EHENS GILDA METAB OLIC PANEL urea nitrogen (BUN) 10 mg/dL 7-25 normal Not Available [facility] [address], [place], [address], 08/16/2023 07:24:45 08/15/19 24 08/16/2023 COMPR EHENS GILDA METAB OLIC PANEL creatinine 0.73 mg/dL 0.50-0 .97 normal Not Available [facility] [address], [place], [address], 08/16/2023 07:24:45 08/15/19 24 08/16/2023 COMPR EHENS GILDA METAB OLIC PANEL eGFR 110 mL/mi n/1.7 3m2 > or = 60 normal Not Available [facility] [address], [place], [address], 08/16/2023 07:24:45 08/15/19 24 08/16/2023 COMPR EHENS GILDA METAB OLIC PANEL BUN/creatini ne ratio SEE NOTE: (calc ) 6-22 Not Repor travon: BUN and Creat inine are withi n refer ence range . Not Available [facility] [address] [place], [address], 08/16/2023 07:24:45 08/15/19 24 08/16/2023 COMPR EHENS GILDA METAB OLIC PANEL sodium 136 mmol/ L 135-14 6 normal Not Available [facility] [address], [place], [address], 08/16/2023 07:24:45 08/15/19 24 08/16/2023 COMPR EHENS GILDA METAB OLIC PANEL potassium 3.8 mmol/ L 3.5-5. 3 normal Not Available [facility] [address], [place], [address], 08/16/2023 07:24:45 08/15/19 24 08/16/2023 COMPR EHENS GILDA METAB OLIC PANEL chloride 101 mmol/ L 98-110 normal Not Available [facility] [address], [place], [address], 08/16/2023 07:24:45 08/15/19 24 08/16/2023 COMPR EHENS GILDA METAB OLIC PANEL carbon dioxide 28 mmol/ L 20-32 normal Not Available [facility] [address], [place], [address], 08/16/2023 07:24:45 08/15/19 24 08/16/2023 COMPR EHENS GILDA METAB OLIC PANEL calcium 9.2 mg/dL 8.6-10 .2 normal Not Available [facility] [address], [place], [address], 08/16/2023 07:24:45 08/15/19 24 08/16/2023 COMPR EHENS GILDA METAB OLIC PANEL protein, total 7.3 g/dL 6.1-8. 1 normal Not Available [facility] [address], [place], [address], 08/16/2023 07:24:45 08/15/19 24 08/16/2023 COMPR EHENS GILDA METAB OLIC PANEL albumin 4.4 g/dL 3.6-5. 1 normal Not Available [facility] [address], [place], [address], 08/16/2023 07:24:45 08/15/19 24 08/16/2023 COMPR EHENS GILDA METAB OLIC PANEL globulin 2.9 g/dL_ (calc ) 1.9-3. 7 normal Not Available [facility] [address], [place], [address], 08/16/2023 07:24:45 08/15/19 24 08/16/2023 COMPR EHENS GILDA METAB OLIC PANEL albumin/glob ulin ratio 1.5 (calc ) 1.0-2. 5 normal Not Available [facility] [address], [place], [address], 08/16/2023 07:24:45 08/15/19 24 08/16/2023 COMPR EHENS GILDA METAB OLIC PANEL bilirubin, total 0.4 mg/dL 0.2-1. 2 normal Not Available [facility] [address], [place], [address], 08/16/2023 07:24:45 08/15/19 24 08/16/2023 COMPR EHENS GILDA METAB OLIC PANEL alkaline phosphatase 51 U/L 31-125 normal Not Available [facility] [address], [place], [address], 08/16/2023 07:24:45 08/15/19 24 08/16/2023 COMPR EHENS GILDA METAB OLIC PANEL AST 10 U/L 10-30 normal Not Available [facility] [place] [facility] [address], [place], [address], 08/16/2023 07:24:45 08/15/19 24 08/16/2023 COMPR EHENS GILDA METAB OLIC PANEL ALT 8 U/L 6-29 normal Not Available [facility] [place] [facility] [address], [place], [address], 08/16/2023 07:24:45 08/15/19 24 08/16/2023 CBC (INCL UDES DIFF/ PLT) white blood cell count 6.0 thous and/u L 3.8-10 .8 normal Not Available [facility] [place] [facility] [address], [place], [address], 08/16/2023 07:24:46 08/15/19 24 08/16/2023 CBC (INCL UDES DIFF/ PLT) red blood cell count 4.01 tonya on/uL 3.80-5 .10 normal Not Available [facility] [place] [facility] [address], [place], [address], 08/16/2023 07:24:46 08/15/19 24 08/16/2023 CBC (INCL UDES DIFF/ PLT) hemoglobin 11.2 g/dL 11.7-1 5.5 low Not Available [facility] [place] [facility] [address], [place], [address], 08/16/2023 07:24:46 08/15/19 24 08/16/2023 CBC (INCL UDES DIFF/ PLT) hematocrit 34.5 % 35.0-4 5.0 low Not Available [facility] [place] [facility] [address], [place], [address], 08/16/2023 07:24:46 08/15/19 24 08/16/2023 CBC (INCL UDES DIFF/ PLT) MCV 86.0 fL 80.0-1 00.0 normal Not Available [facility] [place] [facility] [address], [place], [address], 08/16/2023 07:24:46 08/15/19 24 08/16/2023 CBC (INCL UDES DIFF/ PLT) MCH 27.9 pg 27.0-3 3.0 normal Not Available [facility] [place] [facility] [address], [place], [address], 08/16/2023 07:24:46 08/15/19 24 08/16/2023 CBC (INCL UDES DIFF/ PLT) MCHC 32.5 g/dL 32.0-3 6.0 normal Not Available [facility] [place] [facility] [address], [place], [address], 08/16/2023 07:24:46 08/15/19 24 08/16/2023 CBC (INCL UDES DIFF/ PLT) RDW 13.0 % 11.0-1 5.0 normal Not Available [facility] [place] [facility] [address], [place], [address], 08/16/2023 07:24:46 08/15/19 24 08/16/2023 CBC (INCL UDES DIFF/ PLT) platelet count 364 thous and/u L 140-40 0 normal Not Available [facility] [place] [facility] [address], [place], [address], 08/16/2023 07:24:46 08/15/19 24 08/16/2023 CBC (INCL UDES DIFF/ PLT) MPV 11.1 fL 7.5-12 .5 normal Not Available [facility] [place] [facility] [address], [place], [address], 08/16/2023 07:24:46 08/15/19 24 08/16/2023 CBC (INCL UDES DIFF/ PLT) absolute neutrophils 3756 cells /uL 1500-7 800 normal Not Available [facility] [place] [facility] [address], [place], [address], 08/16/2023 07:24:46 08/15/19 24 08/16/2023 CBC (INCL UDES DIFF/ PLT) absolute lymphocytes 1566 cells /uL 850-39 00 normal Not Available [facility] [place] [facility] [address], [place], [address], 08/16/2023 07:24:46 08/15/19 24 08/16/2023 CBC (INCL UDES DIFF/ PLT) absolute monocytes 600 cells /uL 200-95 0 normal Not Available [facility] [place] [facility] [address], [place], [address], 08/16/2023 07:24:46 08/15/19 24 08/16/2023 CBC (INCL UDES DIFF/ PLT) absolute eosinophils 48 cells /uL 15-500 normal Not Available [facility] [place] [facility] [address], [place], [address], 08/16/2023 07:24:46 08/15/19 24 08/16/2023 CBC (INCL UDES DIFF/ PLT) absolute basophils 30 cells /uL 0-200 normal Not Available [facility] [place] [facility] [address], [place], [address], 08/16/2023 07:24:46 08/15/19 24 08/16/2023 CBC (INCL UDES DIFF/ PLT) neutrophils 62.6 % normal Not Available [facility] [address], [place], [address], 08/16/2023 07:24:46 08/15/19 24 08/16/2023 CBC (INCL UDES DIFF/ PLT) lymphocytes 26.1 % normal Not Available [facility] [place] [facility] [address] [place], [address], 08/16/2023 07:24:46 08/15/19 24 08/16/2023 CBC (INCL UDES DIFF/ PLT) monocytes 10.0 % normal Not Available [facility] [place] [facility] [address], [place], [address], 08/16/2023 07:24:46 08/15/19 24 08/16/2023 CBC (INCL UDES DIFF/ PLT) eosinophils 0.8 % normal Not Available [facility] [place] [facility] [address], [place], [address], 08/16/2023 07:24:46 08/15/19 24 08/16/2023 CBC (INCL UDES DIFF/ PLT) basophils 0.5 % normal Not Available [facility] [place] [facility] [address], [place], [address], 08/16/2023 07:24:46 08/15/19 24 08/16/2023 TSH W/REF ASAEL TO FT4 TSH w/reflex to FT4 1.34 mIU/L normal Refer ence Range > or = 20 Years 0.40- 4.50 Pregn ginger Range s First trime ster 0.26- 2.66 Secon d trime ster 0.55- 2.73 Third trime ster 0.43- 2.91 Not Available [facility] [place] [facility] [address], [place], [address], 08/16/2023 07:24:46 08/15/19 24 08/15/2023 urina lysis , dipst ick Glucose Negati ve Not Available [address], [place], [address], 08/15/2023 08:41:39 08/15/19 24 08/15/2023 urina lysis , dipst ick Leukocytes Negati ve Not Available [address], [place], [address], 08/15/2023 08:41:39 08/15/19 24 08/15/2023 urina lysis , dipst ick Nitrate Negati ve Not Available [facility] [address], [place], [address], 08/15/2023 08:41:39 08/15/19 24 08/15/2023 urina lysis , dipst ick Urobilinogen Negati ve Not Available [facility] [address], [place], [address], 08/15/2023 08:41:39 08/15/19 24 08/15/2023 urina lysis , dipst ick Protein Negati ve Not Available [facility] [address], [place], [address], 08/15/2023 08:41:39 08/15/19 24 08/15/2023 urina lysis , dipst ick pH 6.0 Not Available [facility] [address], [place], [address], 08/15/2023 08:41:39 08/15/19 24 08/15/2023 urina lysis , dipst ick Blood Negati ve Not Available [facility] [address], [place], [address], 08/15/2023 08:41:39 08/15/19 24 08/15/2023 urina lysis , dipst ick Specific [place] 1.015 Not Available [facility] [address], [place], [address], 08/15/2023 08:41:39 08/15/19 24 08/15/2023 urina lysis , dipst ick Ketone Negati ve Not Available [facility] [address], [place], [address], 08/15/2023 08:41:39 08/15/19 24 08/15/2023 urina lysis , dipst ick Bilirubin Negati ve Not Available [facility] [address], [place], [address], 08/15/2023 08:41:39 08/23/19 25 08/24/2024 IRON, TIBC AND YVETTE TIN PANEL iron, total 39 mcg/d L 40-190 low Not Available [facility] [place] [facility] [address], [place], [address], 08/24/2024 10:08:42 08/23/19 25 08/24/2024 IRON, TIBC AND YVETTE TIN PANEL iron binding capacity 326 mcg/d L_(ca lc) 250-45 0 normal Not Available [facility] [place] [facility] [address], [place], [address], 08/24/2024 10:08:42 08/23/19 25 08/24/2024 IRON, TIBC AND YVETTE TIN PANEL % saturation 12 %_(ca lc) 16-45 low Not Available [facility] [place] [facility] [address], [place], [address], 08/24/2024 10:08:42 08/23/19 25 08/24/2024 IRON, TIBC AND YVETTE TIN PANEL ferritin 6 NG/mL 16-154 low Not Available [facility] [place] [facility] [address], [place], [address], 08/24/2024 10:08:42 08/23/19 25 08/24/2024 LIPID PANEL WITH REFLE X TO DIREC T LDL cholesterol, total 193 mg/dL <200 normal Not Available [facility] [address], [place], [address], 08/24/2024 10:08:43 08/23/19 25 08/24/2024 LIPID PANEL WITH REFLE X TO DIREC T LDL HDL cholesterol 64 mg/dL > or = 50 normal Not Available [facility] [place] [facility] [address], [place], [address], 08/24/2024 10:08:43 08/23/19 25 08/24/2024 LIPID PANEL WITH REFLE X TO DIREC T LDL triglyceride s 69 mg/dL <150 normal Not Available [facility] [place] [facility] [address], [place], [address], 08/24/2024 10:08:43 08/23/19 25 08/24/2024 LIPID PANEL WITH REFLE X TO DIREC T LDL LDL-choleste rol 113 mg/dL _(kathia c) high Refer ence range : <100 Rambo able range <100 mg/dL for prima ry preve ntion ; <70 mg/dL for patie nts with CHD or diabe tic patie nts with > or = 2 CHD risk facto rs. LDL-C is now calcu lated using the Kirti n-Hop kins calcu yesenia n, which is a valid ated novel prashanth mulligante r accur acy than the Fried chidi equat ion in the estim ation of LDL-C . Kirti aranda SS et al. PRINCE. 2013; 310(1 9): 2061- 2068 (http ://ed ucati on.[employer]. com/f aq/FA Q164) Not Available [facility] [place] [facility] [address], [place], [address], 08/24/2024 10:08:43 08/23/19 25 08/24/2024 LIPID PANEL WITH REFLE X TO DIREC T LDL chol/HDLC ratio 3.0 (calc ) <5.0 normal Not Available [facility] [place] [facility] [address], [place], [address], 08/24/2024 10:08:43 08/23/19 25 08/24/2024 LIPID PANEL WITH REFLE X TO DIREC T LDL non HDL cholesterol 129 mg/dL _(kathia c) <130 normal For patie nts with diabe dayne plus 1 major ASCVD risk facto r, treat ing to a non-H DL-C goal of <100 mg/dL (LDL- C of <70 mg/dL ) is consi jorged a thera peuti c optio n. Not Available [facility] [place] [facility] [address], [place], [address], 08/24/2024 10:08:43 08/23/19 25 08/24/2024 COMPR EHENS GILDA METAB OLIC PANEL glucose 88 mg/dL 65-99 normal Fasti ng refer ence inter darren Not Available [facility] [address], [place], [address], 08/24/2024 10:08:43 08/23/19 25 08/24/2024 COMPR EHENS GILDA METAB OLIC PANEL urea nitrogen (BUN) 12 mg/dL 7-25 normal Not Available [facility] [place] [facility] [address], [place], [address], 08/24/2024 10:08:43 08/23/19 25 08/24/2024 COMPR EHENS GILDA METAB OLIC PANEL creatinine 0.77 mg/dL 0.50-0 .97 normal Not Available [facility] [address], [place], [address], 08/24/2024 10:08:43 08/23/19 25 08/24/2024 COMPR EHENS GILDA METAB OLIC PANEL eGFR 102 mL/mi n/1.7 3m2 > or = 60 normal Not Available [facility] [address], [place], [address], 08/24/2024 10:08:43 08/23/19 25 08/24/2024 COMPR EHENS GILDA METAB OLIC PANEL BUN/creatini ne ratio SEE NOTE: (calc ) 6-22 Not Repor travon: BUN and Creat inine are withi n refer ence range . Not Available [facility] [address], [place], [address], 08/24/2024 10:08:43 08/23/19 25 08/24/2024 COMPR EHENS GILDA METAB OLIC PANEL sodium 135 mmol/ L 135-14 6 normal Not Available [facility] [address], [place], [address], 08/24/2024 10:08:43 08/23/19 25 08/24/2024 COMPR EHENS GILDA METAB OLIC PANEL potassium 4.1 mmol/ L 3.5-5. 3 normal Not Available [facility] [address], [place], [address], 08/24/2024 10:08:43 08/23/19 25 08/24/2024 COMPR EHENS GILDA METAB OLIC PANEL chloride 103 mmol/ L 98-110 normal Not Available [facility] [address], [place], [address], 08/24/2024 10:08:43 08/23/19 25 08/24/2024 COMPR EHENS GILDA METAB OLIC PANEL carbon dioxide 28 mmol/ L 20-32 normal Not Available [facility] [address], [place], [address], 08/24/2024 10:08:43 08/23/19 25 08/24/2024 COMPR EHENS GILDA METAB OLIC PANEL calcium 9.2 mg/dL 8.6-10 .2 normal Not Available [facility] [address], [place], [address], 08/24/2024 10:08:43 08/23/19 25 08/24/2024 COMPR EHENS GILDA METAB OLIC PANEL protein, total 7.2 g/dL 6.1-8. 1 normal Not Available [facility] [address], [place], [address], 08/24/2024 10:08:43 08/23/19 25 08/24/2024 COMPR EHENS GILDA METAB OLIC PANEL albumin 4.3 g/dL 3.6-5. 1 normal Not Available [facility] [address], [place], [address], 08/24/2024 10:08:43 08/23/19 25 08/24/2024 COMPR EHENS GILDA METAB OLIC PANEL globulin 2.9 g/dL_ (calc ) 1.9-3. 7 normal Not Available [facility] [address], [place], [address], 08/24/2024 10:08:43 08/23/19 25 08/24/2024 COMPR EHENS GILDA METAB OLIC PANEL albumin/glob ulin ratio 1.5 (calc ) 1.0-2. 5 normal Not Available [facility] [address], [place], [address], 08/24/2024 10:08:43 08/23/19 25 08/24/2024 COMPR EHENS GILDA METAB OLIC PANEL bilirubin, total 0.3 mg/dL 0.2-1. 2 normal Not Available [facility] [address], [place], [address], 08/24/2024 10:08:43 08/23/19 25 08/24/2024 COMPR EHENS GILDA METAB OLIC PANEL alkaline phosphatase 49 U/L 31-125 normal Not Available [facility] [address], [place], [address], 08/24/2024 10:08:43 08/23/19 25 08/24/2024 COMPR EHENS GILDA METAB OLIC PANEL AST 10 U/L 10-30 normal Not Available [facility] [address], [place], [address], 08/24/2024 10:08:43 08/23/19 25 08/24/2024 COMPR EHENS GILDA METAB OLIC PANEL ALT 8 U/L 6-29 normal Not Available [facility] [address], [place], [address], 08/24/2024 10:08:43 08/23/19 25 08/24/2024 CBC (INCL UDES DIFF/ PLT) white blood cell count 5.3 thous and/u L 3.8-10 .8 normal Not Available [facility] [address], [place], [address], 08/24/2024 10:08:44 08/23/19 25 08/24/2024 CBC (INCL UDES DIFF/ PLT) red blood cell count 4.04 tonya on/uL 3.80-5 .10 normal Not Available [facility] [address], [place], [address], 08/24/2024 10:08:44 08/23/19 25 08/24/2024 CBC (INCL UDES DIFF/ PLT) hemoglobin 11.2 g/dL 11.7-1 5.5 low Not Available [facility] [address], [place], [address], 08/24/2024 10:08:44 08/23/19 25 08/24/2024 CBC (INCL UDES DIFF/ PLT) hematocrit 35.7 % 35.0-4 5.0 normal Not Available [facility] [address] [place], [place], [address], 08/24/2024 10:08:44 08/23/19 25 08/24/2024 CBC (INCL UDES DIFF/ PLT) MCV 88.4 fL 80.0-1 00.0 normal Not Available [facility] [place] [facility] [address] [place], [place], [address], 08/24/2024 10:08:44 08/23/19 25 08/24/2024 CBC (INCL UDES DIFF/ PLT) MCH 27.7 pg 27.0-3 3.0 normal Not Available [facility] [place] [facility] [address] [place], [place], [address], 08/24/2024 10:08:44 08/23/19 25 08/24/2024 CBC (INCL UDES DIFF/ PLT) MCHC 31.4 g/dL 32.0-3 6.0 low For adult s, a sligh t decre ase in the calcu lated MCHC value (in the range of 30 to 32 g/dL) is most likel y not clini adele reece t; jordi er, it shoul d be inter prete d with cauti on in [facility] n with other red cell kenn eters and the patie nt's clini kathia condi tion. Not Available [facility] [place] [facility] [address] [place], [place], [address], 08/24/2024 10:08:44 08/23/19 25 08/24/2024 CBC (INCL UDES DIFF/ PLT) RDW 13.0 % 11.0-1 5.0 normal Not Available [facility] [place] [facility] [address] [place], [place], [address], 08/24/2024 10:08:44 08/23/19 25 08/24/2024 CBC (INCL UDES DIFF/ PLT) platelet count 344 thous and/u L 140-40 0 normal Not Available [facility] [place] [facility] [address], [place], [address], 08/24/2024 10:08:44 08/23/19 25 08/24/2024 CBC (INCL UDES DIFF/ PLT) MPV 10.9 fL 7.5-12 .5 normal Not Available [facility] [place] [facility] [address], [place], [address], 08/24/2024 10:08:44 08/23/19 25 08/24/2024 CBC (INCL UDES DIFF/ PLT) absolute neutrophils 3063 cells /uL 1500-7 800 normal Not Available [facility] [place] [facility] [address], [place], [address], 08/24/2024 10:08:44 08/23/19 25 08/24/2024 CBC (INCL UDES DIFF/ PLT) absolute lymphocytes 1553 cells /uL 850-39 00 normal Not Available [facility] [place] [facility] [address], [place], [address], 08/24/2024 10:08:44 08/23/19 25 08/24/2024 CBC (INCL UDES DIFF/ PLT) absolute monocytes 594 cells /uL 200-95 0 normal Not Available [facility] [place] [facility] [address], [place], [address], 08/24/2024 10:08:44 08/23/19 25 08/24/2024 CBC (INCL UDES DIFF/ PLT) absolute eosinophils 58 cells /uL 15-500 normal Not Available [facility] [place] [facility] [address], [place], [address], 08/24/2024 10:08:44 08/23/19 25 08/24/2024 CBC (INCL UDES DIFF/ PLT) absolute basophils 32 cells /uL 0-200 normal Not Available [facility] [place] [facility] [address], [place], [address], 08/24/2024 10:08:44 08/23/19 25 08/24/2024 CBC (INCL UDES DIFF/ PLT) neutrophils 57.8 % normal Not Available [facility] [place] [facility] [address], [place], [address], 08/24/2024 10:08:44 08/23/19 25 08/24/2024 CBC (INCL UDES DIFF/ PLT) lymphocytes 29.3 % normal Not Available [facility] [place] [facility] [address], [place], [address], 08/24/2024 10:08:44 08/23/19 25 08/24/2024 CBC (INCL UDES DIFF/ PLT) monocytes 11.2 % normal Not Available [facility] [place] [facility] [address], [place], [address], 08/24/2024 10:08:44 08/23/19 25 08/24/2024 CBC (INCL UDES DIFF/ PLT) eosinophils 1.1 % normal Not Available [facility] [place] [facility] [address], [place], [address], 08/24/2024 10:08:44 08/23/19 25 08/24/2024 CBC (INCL UDES DIFF/ PLT) basophils 0.6 % normal Not Available [facility] [place] [facility] [address], [place], [address], 08/24/2024 10:08:44 08/23/19 25 08/24/2024 TSH W/REF ASAEL TO FT4 TSH w/reflex to FT4 1.43 mIU/L normal Refer ence Range > or = 20 Years 0.40- 4.50 Pregn ginger Range s First trime ster 0.26- 2.66 Secon d trime ster 0.55- 2.73 Third trime ster 0.43- 2.91 Not Available [facility] [address], [place], [address], 08/24/2024 10:08:44 08/23/19 25 08/23/2024 urina lysis , dipst ick Glucose Negati ve Not Available [facility] [address], [place], [address], 08/23/2024 08:46:18 08/23/19 25 08/23/2024 urina lysis , dipst ick Appearance Clear Not Available [facility] [address], [place], [address], 08/23/2024 08:46:18 08/23/19 25 08/23/2024 urina lysis , dipst ick Color Yellow Not Available [facility] [address], [place], [address], 08/23/2024 08:46:18 08/23/19 25 08/23/2024 urina lysis , dipst ick Leukocytes Negati ve Not Available [facility] [address], [place], [address], 08/23/2024 08:46:18 08/23/19 25 08/23/2024 urina lysis , dipst ick Nitrate Negati ve Not Available [facility] [address], [place], [address], 08/23/2024 08:46:18 08/23/19 25 08/23/2024 urina lysis , dipst ick Urobilinogen Negati ve Not Available [facility] [address], [place], [address], 08/23/2024 08:46:18 08/23/19 25 08/23/2024 urina lysis , dipst ick Protein Negati ve Not Available [facility] [address], [place], [address], 08/23/2024 08:46:18 08/23/19 25 08/23/2024 urina lysis , dipst ick pH 7.5 Not Available [facility] [address], [place], [address], 08/23/2024 08:46:18 08/23/19 25 08/23/2024 urina lysis , dipst ick Blood 1+ Not Available [facility] [address], [place], [address], 08/23/2024 08:46:18 08/23/19 25 08/23/2024 urina lysis , dipst ick Specific [place] 1.005 Not Available [facility] [address], [place], [address], 08/23/2024 08:46:18 08/23/19 25 08/23/2024 urina lysis , dipst ick Ketone Negati ve Not Available [facility] [address], [place], [address], 08/23/2024 08:46:18 08/23/19 25 08/23/2024 urina lysis , dipst ick Bilirubin Negati ve Not Available [facility] [address], [place], [address], 08/23/2024 08:46:18 09/11/19 24 09/09/2023 vasraheem benz n (PROC ) No observ ation record ed. [email or web address] Not Available 01/2024 10:28:50 05/28/20 24 05/27/2024 alfonzo gonzalesi ng, [facility] No observ ation record ed. [email or web address] [facility] [address] [address], [place], [address], 05/28/2024 08:35:39 08/27/19 25 08/26/2024 vascu lar exami natio n (PROC ) No observ ation record ed. [email or web address] [facility] [address] [address], [place], [address], 08/27/2024 08:35:44 Result Notes None recorded. Problems Name Problem SNOMED Code Status Onset Date Resolution Date Notes Provider Name and Address Organization Details Recorded Time Active immunizat ion Active Problem Code: Z23; Problem Code Type: ICD-10; Not Available [facility] 3 03:44:26 Adult health examinati on Active Problem Code: Z00.00; Problem Code Type: ICD-10; [address], [place], [address] , [employer] [facility] 4 08:40:29 Body mass index 30+ - obesity 108978496 Active Problem Code: Z68.33; Problem Code Type: ICD-10; Not Available [facility] 3 03:44:26 Basal cell carcinoma of skin 350936096 Active Problem Code: C44.91; Problem Code Type: ICD-10; [address], [place], [address] , [employer] [facility] 4 08:50:12 Hyperlipi demia 85943963 Active Problem Code: E78.5; Problem Code Type: ICD-10; [address], [place], [address] , [employer] [facility] 4 08:40:33 Menorrhag ia 593289972 Active [address], [place], [address] , [employer] [facility] 4 08:49:32 Pain due to varicose veins of lower extremity 187861309 Active [address], [place], [address] , [place] - [employer] 4 09:09:01 Group A Streptoco ccus not isolated 369535670 Active 2023 vaginally Aleksandra Steinberg APRN [address], [place], [address] , [place] [employer] 4 09:17:38 Problem Notes None recorded. Procedures Surgical History Date Name Laterality Status Provider Name and Address Organization Details Recorded Time 2024 EGFPDietAdvice Z713 completed Aleksandra Steinberg APRN [address], [place], [address] , [employer] 5 09:15:09 2024 EGFPCervicalCancerScreen Z124 completed Aleksandra Steinberg APRN [address], [place], [address] , [employer] 5 08:55:59 2023 EGFPCervicalCancerScreen Z124 completed Aleksandra Steinberg APRN [address], [place], [address] , [employer] 4 08:52:22 2023 Date of Last Pap Smear completed Aleksandra Steinberg APRN [address], [place], [address] , [employer] 5 08:56:09 Imaging Results Imaging Date Name Status LastModified by Organiz ation Details LastModified Time 09/09/2023 vascular examination (PROC) completed varinder Information not available 09/11/2023 10:28:50 05/27/2024 venous mapping, lower extremity completed [email or web address] [facility] [address], [address], 05/28/2024 08:35:39 08/26/2024 vascular examination (PROC) completed [email or web address] [facility] [address], [address], 08/27/2024 08:35:44 Procedure Notes None recorded. Medical Equipment None [...] Available Vitals Date Recorded Body height Body weight Oxygen saturation Oxygen saturation in Arterial blood by Pulse oximetry Heart rate Systolic blood pressure Diastolic blood pressure Provider Name and Address Organization Details Last Updated DateTime 4 171.45 cm 03180.9 8 g 99 % 99 % 73 /min 120 mm[Hg] 88 mm[Hg] Janine Doll [facility] 08:37:15 Date Recorded Body mass index (BMI) Provider Name and Address Organization Details Last Updated DateTime 08/15/2023 33.5 kg/m2 Aleksandra Steinberg APRN [address], [place], [address], [facility] 08/15/2023 08:56:17 Date Recorded Body height Body mass index (BMI) Body weight Body temperature Oxygen saturation Oxygen saturation in Arterial blood by Pulse oximetry Heart rate Systolic blood pressure Diastolic blood pressure Provider Name and Address Organization Details Last Updated DateTime 4 171.45 cm 34.4 kg/m2 305881. 1 g 97.4 [degF] 97 % 97 % 68 /min 114 mm[Hg] 86 mm[Hg] Amelia Londono [facility] 11:43:24 Date Recorded Body height Body mass index (BMI) Body weight Oxygen saturation Oxygen saturation in Arterial blood by Pulse oximetry Heart rate Body temperature Systolic blood pressure Diastolic blood pressure Provider Name and Address Organization Details Last Updated DateTime 171.45 cm 33.2 kg/m2 22414.4 6 g 99 % 99 % 72 /min 97.8 [degF] 116 mm[Hg] 91 mm[Hg] Araceli Marroquindeb [facility] 08:37:33 Social History Question Answer Notes LastModified by Organization Details LastModified Time Tobacco Smoking Status Never Smoker Not Available [facility] 03/24/2023 12:28:04 Do You Have An Advance [...] Or The Highest Degree You Have Received? 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 No Information not available 08/23/2024 What Is The Fluoride Status Of Your Home? Non-fluoridated Information not available 08/23/2024 Are There Any Guns Present In Your Home? No Information not available 08/23/2024 Which Of Your Hands Is Dominant? Right Information not available 08/23/2024 Where Do You Live? [facility] Information not available 08/23/2024 Do You Have A Medical Power Of Dimension Stone Quarry Supervisor? No Information not available 08/23/2024 What Was [...] Anxious, Or Unable To Sleep At Night)? [id number] Information not available 08/23/2024 Do You Use [...] Mother : Alive Hypothyroid Paternal Grandfather: DM, [place] age 57 Paternal Grandmother: htn Maternal Grandfather: [...] virus, quadrivalent, PF 2 completed Not Available [facility] 04/14/2023 06:54:15 Tdap 8 completed Not Available [facility] 04/14/2023 06:54:15 Influenza, recombinant, quadrivalent, PF 2 completed Not Available [facility] 04/14/2023 06:54:15 Influenza, split virus, trivalent, preservative 2 completed Not Available [facility] 04/14/2023 06:54:15 COVID-19, mRNA, LNP-S, PF, 30 mcg/0.3 mL dose 1 completed Aleksandra Steinberg, RELIABILITY SPECIALIST [address], [place], [address], [facility] 08/23/2024 08:49:12 COVID-19, mRNA, LNP-S, PF, 30 mcg/0.3 mL dose 1 completed Aleksandra Steinberg APRN [address] [place], [address], [place] - [facility] 08/23/2024 08:49:13 Past Encounters Encounter ID Performer Location Encounter Start Date Encounter Closed Date Diagnosis/Indication Diagnosis SNOMED-CT Code Diagnosis ICD10 Code Diagnosis Note [id number] Aleksandra Steinberg APRN [facility] [address] [place] [address] 08/15/2023 08:12:49 08/15/2023 09:13:47 Adult health examination 582252671 Z00.00 I have reviewed, and updated patient's past medical, surgical, family, and social historyMos t recent dental eye and specialist examsCouns eled about the following: -healthy lifestyle- stress management -exercise 100-150min /week-Limi ting alcohol intake-Dys lipidemia screening- Cervical cancer screening- Age appropriat e immunizati ons Menorrhagia 942945250 N9 2.0 Continue to follow with EMPLOYMENT TRAINER. Will check iron panel. Pain due t o varicose veins of lower extremity 799009320 I83.819 Will refer to vascular for further treatment [id number] Michelle Garces MD [address] [address] 10/07/2023 11:23:56 10/07/2023 12:50:49 Subjective pulsatile tinnitus of right ear 3305868627 157208 H93.A1 concern is that it is unilateral and pulsatile in nature. Will refer her urgently to ear nose and throat doctor. A call was placed to see if I could get her in today as she took the day off. Will also prescribe lorazepam to try to help her with sleep at night. [id number] Aleksandra Steinberg APRN [facility] [address] [place] [address] 08/23/2024 08:26:12 08/23/2024 09:15:26 Adult health examination 061854827 Z00.00 I have reviewed, and updated patient's past medical, surgical, family, and social historyMos t recent dental eye and specialist examsCouns eled about the following: -healthy lifestyle- stress management -exercise 100-150min /week-Limi magali alcohol intake-Dys lipidemia screening- Cervical cancer screening- Age appropriat e immunizati ons Menorrhagia 634940198 N9 2.0 Continue to follow with EMPLOYMENT TRAINER. Will check iron panel. Body mass index 30+ - obesity 902827447 Z68.33 Cont healthy diet, portion control. Is working on getting more exercise Health Concerns Section Related Observation LastModified by Organization Detai ls LastModified Time None Recorded Concern Status LastModified by Organization Details LastModified Time None Recorded Advance Directives Directive N: Declined info 08/23/24 Payers Encounter Date Sequence Insurance Name Policy Number Policy Drew Covered Member ID Drew Member ID Guarantor Name 08/15/2023 1 [place] [facility] [employer] - FORMERLY NAMED [facility] EMPLOYEE PROGRAM [id number] [id number] Danae B Mereta 10/07/2023 1 [place] [facility] - [employer] PROGRAM [address] [id number] Danae B Mereta 08/23/2024 1 [place] [facility] - FORMERLY NAMED [facility] EMPLOYEE PROGRAM [address] [facility] [id number] [facility] Notes Date Note Type Note Provider Name and Address Organization Details Recorded Time 08/15/2023 text/html Patient presents for YPE. She is fasting for blood work. She has a few health updates? over the last few months she has had 2 vaginal infections which were actually positive for group A strep. She did see infectious disease and is now on a 30-day course of penicillin to 50 mg twice daily which she is finishing up. Patient ended up seeing seafood service team member 2 months ago for this issue as well as for heavy periods. She will be getting an ultrasound transvaginally later today to look into this. History of anemia a few months back when she had blood work done through her work, but not supplementing with iron. She is asymptomatic with regards to anemia. One health struggles she has been experiencing is pain in her legs, specifically behind her right knee. 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 Does have a history of spider veins/varicose veins. Has been wearing compression stockings without much relief. Would be interested in seeing vascular. Only other health struggle has been some weight gain and difficulty losing weight but admits that she is under stress with work and her family and has not been as diligent with diet and exercise that she could be. She is up-to-date with seeing her bead flipper annually. Does have a history of basal cell. Aleksandra Steinberg APRN [address], [place], [address], [facility] 08/15/2023 09:11:43 10/07/2023 text/html 33 yo woman presenting with: Bilateral ear tinnitus. Right worse than left.Duration: 1 weekIntermittent.Pul satile.Feels pulsating and swooshing at times. Occasionally high-pitched.No difficulty hearing or pain. Feels full and sensitive to loud noises.Causing insomnia. Seems to be worse at night when lying flat.Sleeps inclined. Often sleeps on right side which induces it.Tried Hydroxyzine 25 mg (effective for sleep but feels groggy in AM).Now anxious due to lack of sleep. Denies Fever, sore throat, nasal congestion, headache, vision changes, numbness or tingling, hearing loss or vertigo. No recent medications that are ototoxic.Was a strep throat carrier so took Penicillin for a month in July. Otherwise no medications other than occasional Hydroxyzine for anxiety. Michelle Garces MD [address] [place], [address], [facility] 10/07/2023 13:01:10 08/23/2024 text/html Patient presents for YPE. She is fasting for blood work. She is up-to-date with seeing her bead flipper and chainstitch zipper setter annually. Does have a history of basal cell.Health updates: had venous ablations last year- significant improvement in leg pain.Still with heavy mensesWork is going wellEats very healthy, sleeping well, managing stress well. Aleksandra Steinberg APRN [address], [place], [address], [facility] 08/23/2024 09:17:24 OBGyn Episode No OBEpisode recorded.
--- OUTSIDE RECORDS SUMMARY | 2024-09-08 15:07 | XMS_ITS | Encounter Summary ---
Author Organization [facility]ly [facility] Address [address] [place] [address] Care Team Providers Care Deputy Director Of Nursing Name Role Phone Elodia Steinberg MABEL Primary Care Provider Encounter Details Date Type Department Care Team (Latest Contact Info) Description 07/27/2020 Lab Requisition [facility] COVID [address] Through [address] [place] [address] [address] [place] [address] Jayce Morales MD [address] [place] [address] Encounter for laboratory testing for COVID-19 virus [...] Comments COVID-19 (SARS-COV-2) - [facility] Routine 07/27/2020 3:20 PM EST Encounter for laboratory testing for COVID-19 virus [ICD-10-CM] documented in this encounter Results * COVID-19 (SARS-COV-2) ([facility]) (07/27/2020 3:20 PM EST) COVID-19 RT-PCR NOT-DETEC RIYA Not-Detec riya 07/28/2020 10:15 PM EST [facility] [place] Comment:Interpretation: The viral RNA was not detected, making the COVID-19 diagnosis less likely. Clinical correlation is highly recommended.Final report signed by Roel Solorzano, Ph.D., Laboratory DirectorTests performed at [facility] Nasopharyngeal swab / Unknown 07/27/2020 3:20 PM EST 07/27/2020 3:20 PM EST Narrative JONATHAN CORTEZ - 07/28/2020 10:15 PM EST Performed by [facility] [address] [place] [address], CLIA# [id number] and [place] License# [id number] Jayce Morales MD MICROBIOLOGY - GENER AL ORDERABLES JONATHAN CORTEZ documented in this encounter Visit Diagnoses Diagnosis Encounter for laboratory testing for COVID-19 virus documented in this encounter Care Teams Deputy Director Of Nursing Relationship Specialty Start Date End Date Elodia Steinberg APRN PCP - General Family Medicine 06/20/20 documented as of this encounter
--- OUTSIDE RECORDS SUMMARY | 2024-09-08 15:07 | XMS_ITS | Encounter Summary ---
Author Organization [facility] Address [address] [place] [address] Care Team Providers Care Maintainer Central Office Name Role Phone Elodia Steinberg MABEL Primary Care Provider Encounter Details Date Type Department Care Team (Latest Contact Info) Description 08/18/2020 Lab Requisition [facility] COVID Drive Through [address] [place] [address] [address] [place] [address] Jayce Morales MD [address] [place] [address] Encounter for laboratory testing for COVID-19 virus [...] Comments COVID-19 (SARS-COV-2) - [facility] LAB Routine 08/18/2020 11:37 AM EST Encounter for laboratory testing for COVID-19 virus [ICD-10-CM] documented in this encounter Results * COVID-19 (SARS-COV-2) (SEMA4) (08/18/2020 11:37 AM EST) COVID-19 RT-PCR NOT-DETEC RIYA Not-Detec riya 08/19/2020 3:35 PM EST [facility] [place] Comment:Interpretation: The viral RNA was not detected, making the COVID-19 diagnosis less likely. Clinical correlation is highly recommended.Final report signed by Luan Haji, Ph.D., Laboratory DirectorTests performed at [facility] Nasopharyngeal swab / Unknown 08/18/2020 11:37 AM EST 08/18/2020 11:37 AM EST Narrative JONATHAN CORTEZ - 08/19/2020 3:35 PM EST Performed by [facility] [address] [place] [address], CLIA# [id number] and [place] License# [id number] Jayce Morales MD MICROBIOLOGY - GENER AL ORDERABLES JONATHAN CORTEZ documented in this encounter Visit Diagnoses Diagnosis Encounter for laboratory testing for COVID-19 virus documented in this encounter Care Teams Maintainer Central Office Relationship Specialty Start Date End Date Elodia Steinberg APRN PCP - General Family Medicine 06/20/20 documented as of this encounter
--- OUTSIDE RECORDS SUMMARY | 2024-09-08 15:07 | XMS_ITS | Encounter Summary ---
Author Organization [facility] Address [address] [place] [address] Care Team Providers Care Trust Manager Assistant Name Role Phone Elodia Steinberg MABEL Primary Care Provider Encounter Details Date Type Department Care Team (Latest Contact Info) Description 08/11/2020 Lab Requisition [facility] COVID Drive Through [address] [place] [address] [address] [place] [address] Jayce Morales MD [address] [place] [address] Encounter for laboratory testing for COVID-19 virus [...] Comments COVID-19 (SARS-COV-2) - SEMA4 LAB Routine 08/11/2020 11:45 AM EST Encounter for laboratory testing for COVID-19 virus [ICD-10-CM] documented in this encounter Results * COVID-19 (SARS-COV-2) (SEMA4) (08/11/2020 11:45 AM EST) COVID-19 RT-PCR NOT-DETEC RIYA Not-Detec riya 08/12/2020 11:15 AM EST [facility] [place] Comment:Interpretation: The viral RNA was not detected, making the COVID-19 diagnosis less likely. Clinical correlation is highly recommended.Final report signed by Luan Haji, Ph.D., Laboratory DirectorTests performed at [facility] Nasopharyngeal swab / Unknown 08/11/2020 11:45 AM EST 08/11/2020 11:45 AM EST Narrative JONATHAN CORTEZ - 08/12/2020 11:15 AM EST Performed by [facility], [address] [place] [address], CLIA# [id number] and [place] License# [id number] Jayce Morales MD MICROBIOLOGY - GENER AL ORDERABLES JONATHAN CORTEZ documented in this encounter Visit Diagnoses Diagnosis Encounter for laboratory testing for COVID-19 virus documented in this encounter Care Teams Trust Manager Assistant Relationship Specialty Start Date End Date Elodia Steinberg APRN PCP - General Family Medicine 06/20/20 documented as of this encounter
--- OUTSIDE RECORDS SUMMARY | 2024-09-08 15:07 | XMS_ITS | Encounter Summary ---
Author Organization [facility] Address [address] [place] [address] Care Team Providers Care Health Information Assistant Name Role Phone Elodia Steinberg MABEL Primary Care Provider Encounter Details Date Type Department Care Team (Latest Contact Info) Description [facility] [address] [place] [address] [address] [place] [address] Kip Bullock PA-C [address] [place] [address] Encounter for laboratory testing for COVID-19 virus [...] Comments COVID-19 (SARS-COV-2) - SEMA4 LAB Routine 07/20/2020 5:15 PM EST Encounter for laboratory testing for COVID-19 virus [ICD-10-CM] documented in this encounter Results * COVID-19 (SARS-COV-2) (SEMA4) (07/20/2020 5:15 PM EST) COVID-19 RT-PCR NOT-DETEC RIYA Not-Detec riya 07/22/2020 9:44 AM EST JONATHAN CORTEZ Comment:Interpretation: The viral RNA was not detected, making the COVID-19 diagnosis less likely. Clinical correlation is highly recommended.Final report signed by Luan Haji, Ph.D., Laboratory DirectorTests performed at [facility] Nasopharyngeal swab / Unknown 07/20/2020 5:15 PM EST 07/20/2020 5:16 PM EST Narrative JONATHAN CORTEZ - 07/22/2020 9:44 AM EST Performed by [facility]., [address] [place] [address], CLIA# [id number] and [place] License# [id number] Kip Bullock PA-C MICROBIOLOGY - NERAL ORDERABLES JONATHAN CORTEZ documented in this encounter Visit Diagnoses Diagnosis Encounter for laboratory testing for COVID-19 virus documented in this encounter Care Teams Health Information Assistant Relationship Specialty Start Date End Date Elodia Steinberg APRN PCP - General Family Medicine 06/20/20 documented as of this encounter
--- OUTSIDE RECORDS SUMMARY | 2024-09-08 15:07 | XMS_ITS | Encounter Summary ---
Author Organization [facility] Address [address] [place] [address] Care Team Providers Care Supervisor Transferring And Boxing Name Role Phone IdrisElodia MABEL Primary Care Provider Encounter Details Date Type Department Care Team (Latest Contact Info) Description 07/14/[address] [facility] [address] [place] [address] [address] [place] [address] Kip Bullock PA-C [address] [place] [address] Encounter for laboratory testing for COVID-19 virus [...] Comments COVID-19 (SARS-COV-2) - SEMA4 LAB Routine 07/14/2020 11:25 AM EST Encounter for laboratory testing for COVID-19 virus [ICD-10-CM] documented in this encounter Results * COVID-19 (SARS-COV-2) (SEMA4) (07/14/2020 11:25 AM EST) COVID-19 RT-PCR NOT-DETEC RIYA Not-Detec riya 07/15/2020 4:56 PM EST JONATHAN CORTEZ Comment:Interpretation: The viral RNA was not detected, making the COVID-19 diagnosis less likely. Clinical correlation is highly recommended.Final report signed by Luan Haji, Ph.D., Laboratory DirectorTests performed at [facility] Nasopharyngeal swab / Unknown 07/14/2020 11:25 AM EST 07/14/2020 11:25 AM EST Narrative JONATHAN CORTEZ - 07/15/2020 4:56 PM EST Performed by [facility]., [address] [place] [address], CLIA# [id number] and [place] License# [id number] Kip Bullock PA-C MICROBIOLOGY - NERAL ORDERABLES JONATHAN CORTEZ documented in this encounter Visit Diagnoses Diagnosis Encounter for laboratory testing for COVID-19 virus documented in this encounter Care Teams Supervisor Transferring And Boxing Relationship Specialty Start Date End Date Elodia Steinberg APRN PCP - General Family Medicine 06/20/20 documented as of this encounter
--- OUTSIDE RECORDS SUMMARY | 2024-09-08 15:07 | XMS_ITS | Encounter Summary ---
Author Organization [facility] Address [address] [place] [address] Care Team Providers Care Cloth Carrier Name Role Phone Elodia Steinberg MABEL Primary Care Provider Encounter Details Date Type Department Care Team (Latest Contact Info) Description 08/04/2020 Lab Requisition [facility] COVID Drive Through [address] [place] [address] [address] [place] [address] Jayce Morales MD 80 [place] [address] Encounter for laboratory testing for COVID-19 virus [...] Comments COVID-19 (SARS-COV-2) - [facility]A4 LAB Routine 08/04/2020 3:26 PM EST Encounter for laboratory testing for COVID-19 virus [ICD-10-CM] documented in this encounter Results * COVID-19 (SARS-COV-2) (SEMA4) (08/04/2020 3:26 PM EST) COVID-19 RT-PCR NOT-DETEC RIYA Not-Detec riya 08/05/2020 3:32 PM EST [facility] [place] Comment:Interpretation: The viral RNA was not detected, making the COVID-19 diagnosis less likely. Clinical correlation is highly recommended.Final report signed by Roel Solorzano, Ph.D., Laboratory DirectorTests performed at [email or web address] Nasopharyngeal swab / Unknown 08/04/2020 3:26 PM EST 08/04/2020 3:26 PM EST Narrative JONATHAN CORTEZ - 08/05/2020 3:32 PM EST Performed by [email or web address]., [address] [place] [address], CLIA# [id number] and [place] License# [id number] Jayce Morales MD MICROBIOLOGY - GENER AL ORDERABLES JONATHAN CORTEZ documented in this encounter Visit Diagnoses Diagnosis Encounter for laboratory testing for COVID-19 virus documented in this encounter Care Teams Cloth Carrier Relationship Specialty Start Date End Date Elodia Steinberg, MABEL PCP - General Family Medicine 06/20/20 documented as of this encounter
--- OUTSIDE RECORDS SUMMARY | 2024-09-08 15:07 | XMS_ITS | Encounter Summary ---
Author Organization [facility] Address [address] [place] [address] Care Team Providers Care Semi Automatic Sewing Machine Operator Name Role Phone Elodia Steinberg MABEL Primary Care Provider Encounter Details Date Type Department Care Team (Latest Contact Info) Description 08/25/2020 Lab Requisition [facility] COVID Drive Through [address] [place] [address] [address] [place] [address] Jayce Morales MD [address] [place] [address] Encounter for laboratory testing for COVID-19 virus [...] Comments COVID-19 (SARS-COV-2) - [facility]4 LAB Routine 08/25/2020 1:01 PM EST Encounter for laboratory testing for COVID-19 virus [ICD-10-CM] documented in this encounter Results * COVID-19 (SARS-COV-2) (SEMA4) (08/25/2020 1:01 PM EST) COVID-19 RT-PCR NOT-DETEC RIYA Not-Detec riya 08/26/2020 3:32 PM EST [facility] [place] Comment:Interpretation: The viral RNA was not detected, making the COVID-19 diagnosis less likely. Clinical correlation is highly recommended.Final report signed by Roel Solorzano, Ph.D., Laboratory DirectorTests performed at [facility] Nasopharyngeal swab / Unknown 08/25/2020 1:01 PM EST 08/25/2020 1:02 PM EST Narrative JONATHAN CORTEZ - 08/26/2020 3:32 PM EST Performed by [facility]., [address] [place] [address], CLIA# [id number] and [place] License# [id number] Jayce Morales MD MICROBIOLOGY - GENER AL ORDERABLES JONATHAN CORTEZ documented in this encounter Visit Diagnoses Diagnosis Encounter for laboratory testing for COVID-19 virus documented in this encounter Care Teams Semi Automatic Sewing Machine Operator Relationship Specialty Start Date End Date Elodia Steinberg APRN PCP - General Family Medicine 06/20/20 documented as of this encounter
== END 2024-09-08 13:18 | disposition home or self-care (01) ==
LOC: HO.HWS 12:47
PROVIDERS: Visit Provider Obstetrics & Gynecology
DX: N93.9 Abnormal uterine and vaginal bleeding, unspecified (principal); N76.0 Acute vaginitis; Z32.02 Encounter for pregnancy test, result negative
CPT/HCPCS: 99213

== ENCOUNTER 2024-10-15 14:41 | Outpatient (REF) | payer BC, SELFPAY ==
--- NOTE | ~2024-10-15 | US_ITS ---
CLINICAL HISTORY: N93.9 - Abnormal uterine and vaginal bleeding, unspecified US pelvis transabdominal and transvaginal with color Doppler Comparison: None Findings: Transabdominal scanning performed for overall anatomy. Transvaginal scanning performed for additional detail. LMP: September 2024 Anteverted uterus, normal size and echotexture, measuring 8.3 x 4.7 x 5.7 cm. Nabothian cysts. Well defined endometrium, measuring 14 mm in thickness. The right ovary measures, 4.0 x 1.7 x 2.4 cm. Normal sonographic appearance right ovary. The left ovary measures, 2.5 x 1.9 x 2.9 cm. Normal sonographic appearance left ovary. No adnexal masses or fluid collections. No free fluid Impression: 1. Prominent/thickened endometrium. Repeat ultrasound during the proliferative phase of the menstrual cycle 2. Normal ovaries/adnexa. 3. No free fluid This document has been electronically signed by: Mauro Herrera MD on 10/16/2024 11:07:07
--- OUTSIDE RECORDS SUMMARY | 2024-10-15 14:57 | XMS_ITS | Encounter Summary ---
Author Organization [facility] Address [address] [place] [address] Care Team Providers Care Applied Researcher Name Role Phone Elodia Steinberg MABEL Primary Care Provider Encounter Details Date Type Department Care Team (Latest Contact Info) Description 09/22/2020 Lab Requisition [facility] COVID Drive Through [address] [place] [address] [address] [place] [address] Jayce Morales MD [address] [place] [address] Encounter for laboratory testing for COVID-19 virus [...] Luan Haji, Ph.D., Laboratory DirectorTests performed at [facility] Nasopharyngeal swab / Unknown 09/22/2020 1:53 PM EDT 09/22/2020 1:53 PM EDT Narrative JONATHAN CORTEZ - 09/23/2020 1:11 PM EDT Performed by [facility] [address] [place] [address], CLIA# [id number] and [place] License# [id number] Jayce Morales MD MICROBIOLOGY - GENER AL ORDERABLES JONATHAN CORTEZ documented in this encounter Visit Diagnoses Diagnosis Encounter for laboratory testing for COVID-19 virus documented in this encounter Care Teams Applied Researcher Relationship Specialty Start Date End Date Elodia Steinberg, MABEL PCP - General Family Medicine 06/20/20 documented as of this encounter
--- OUTSIDE RECORDS SUMMARY | 2024-10-15 14:57 | XMS_ITS | Encounter Summary ---
Author Organization [facility] Address [address] [place] [address] Care Team Providers Care Registered Nurse Cardiovascular Icu Name Role Phone Elodia Steinberg MABEL Primary Care Provider Encounter Details Date Type Department Care Team (Latest Contact Info) Description 09/01/2020 Lab Requisition [facility] COVID Drive Through [address] [place] [address] [address] [place] [address] Jayce Morales MD [address] [place] [address] Encounter for laboratory testing for COVID-19 virus [...] Roel Solorzano, Ph.D., Laboratory DirectorTests performed at [facility] Nasopharyngeal swab / Unknown 09/01/2020 2:23 PM EST 09/01/2020 2:23 PM EST Narrative JONATHAN CORTEZ - 09/02/2020 3:10 PM EST Performed by [facility] [address] [place] [address], CLIA# [id number] and [place] License# [id number] Jayce Morales MD MICROBIOLOGY - GENER AL ORDERABLES JONATHAN CORTEZ documented in this encounter Visit Diagnoses Diagnosis Encounter for laboratory testing for COVID-19 virus documented in this encounter Care Teams Registered Nurse Cardiovascular Icu Relationship Specialty Start Date End Date Elodia Steinberg, MABEL PCP - General Family Medicine 06/20/20 documented as of this encounter
--- OUTSIDE RECORDS SUMMARY | 2024-10-15 14:57 | XMS_ITS | Continuity of Care Document ---
Author Organization [facility] Address [address] [place] [address] Phone Care Team Providers Care Water/Wastewater Engineer Name Role Phone Jet DHILLON, Marlon Unavailable Unavailable Procedures Procedure Date 18-30 mmHg Thigh length gradient meghan becca stocking Office/Oupt E&M New Pt 45 Mins 24 Duplex Scan-extrem Veins; Comp 24 Advance Directives Directive Yes / No Effective Date File Name No Information Encounters Encounter Description Practice Location Reason(s) For Visit Diagnoses Date Provider Providers Copied on Encounter [facility], [address], [id number], [place] tel:[phone] [facility] Varicose veins of bilateral lower extremities with other complications 4 Jet Mason. [address] [place], [address], [place]. tel:[phone] Referring Provider: Elodia Lopez, [address] [place], [address]. tel:[phone] Office/Oupt E&M New Pt 45 Mins [facility], [address] [place] [address], [place], [place], [id number], [place] tel:[phone] [place] Varicose veins of bilateral lower extremities with other complicationsRes tless legs syndromeVenous insufficiency (chronic) (peripheral)Cram p and spasmLocalized edema 4 Jet Mason. [address] [place], [address], [place]. tel:[phone] Referring Provider: Elodia Lopez, [address] [place] [address], [address]. tel:[phone] [facility], [address] [place] [address], [id number], [place] tel:[phone] [place] Chronic venous hypertension (idiopathic) with other complications of bilateral lower extremity 4 Oliver Guzman. [address] [place] [address], [address], [place], [id number] , [place]. tel: [phone] Referring Provider: Elodia Lopez, [address] [place] [address], [address]. tel:[phone] Family History Family Member Type Diagnosis Age At Onset No Information Payers Payer name Insurance type Covered libertarian ID Authoriza tion(s) No Information Social History Type Description Quantity Date Captured Comments Sex Female Smoking Status No Information Chief Complaint And Reason For Visit No Information Reason For Referral Reason For Referral No Information Plan Of Treatment Date Type Action Status Goal Diet education completed Referral Ordered: Weight management: Referral to physician timeframe: 3 Months (related to Body mass index (BMI) 33.0-33.9, adult) ordered History Of Present Illness Encounter Date Complaint History Of Prese nt Illness No Information Functional Status Date Functional Assessmen t No Information Instructions Date Instruction Additional Infor mation Diet education Related to Body mass index (BMI) 33.0-33.9, adult Giving Encouragement to exercise Related to Body mass index (BMI) 33.0-33.9, adult Lifestyle education Related to B migdalia mass index (BMI) 33.0-33.9, adult Patient education booklet given Related to Varicose veins of bilateral lower extremities with other complications Pre and post instruc tions reviewed and provided Related to Varicose veins of bilateral lower extremities with other complications Assessments Type Assessment Date No Information Patient Care Teams Name Effective Dates (start - stop) Status Members No Information
--- OUTSIDE RECORDS SUMMARY | 2024-10-15 14:57 | XMS_ITS | Encounter Summary ---
Author Organization [facility] Address [address] [place] [address] Care Team Providers Care Slasher Name Role Phone IdrisElodia MABEL Primary Care Provider Encounter Details Date Type Department Care Team (Latest Contact Info) Description [facility] [address] [place] [address] [address] [place] [address] Kip Bullock PA-C [address] [place] [address] Encounter for laboratory testing for COVID-19 virus [...] (07/14/2020 11:25 AM EST) COVID-19 RT-PCR NOT-DETEC RIAY Not-Detec riya 07/15/2020 4:56 PM EST JONATHAN CORTEZ Comment:Interpretation: The viral RNA was not detected, making the COVID-19 diagnosis less likely. Clinical correlation is highly recommended.Final report signed by Luan Haji, Ph.D., Laboratory DirectorTests performed at [facility] Nasopharyngeal swab / Unknown 07/14/2020 11:25 AM EST 07/14/2020 11:25 AM EST Narrative JONATHAN CORTEZ - 07/15/2020 4:56 PM EST Performed by [facility] [address] [place] [address], CLIA# [id number] and [place] License# [id number] Kip Bullock PA-C MICROBIOLOGY - NERAL ORDERABLES JONATHAN CORTEZ documented in this encounter Visit Diagnoses Diagnosis Encounter for laboratory testing for COVID-19 virus documented in this encounter Care Teams Slasher Relationship Specialty Start Date End Date Elodia Steinberg APRN PCP - General Family Medicine 06/20/20 documented as of this encounter
--- OUTSIDE RECORDS SUMMARY | 2024-10-15 14:57 | XMS_ITS | Encounter Summary ---
Author Organization [facility] Address [address] [place] [address] Care Team Providers Care Wire Wheeler Name Role Phone Elodia Steinberg MABEL Primary Care Provider Encounter Details Date Type Department Care Team (Latest Contact Info) Description 07/27/2020 Lab Requisition [facility] COVID Drive Through [address] [place] [address] [address] [place] [address] Jayce Morales MD 80 [place], [place] [address] Encounter for laboratory testing for COVID-19 virus [...] Roel Solorzano, Ph.D., Laboratory DirectorTests performed at [facility] Nasopharyngeal swab / Unknown 07/27/2020 3:20 PM EST 07/27/2020 3:20 PM EST Narrative JONATHAN CORTEZ - 07/28/2020 10:15 PM EST Performed by [facility] [address] [place] [address], CLIA# [id number] and [place] License# [id number] Jayce Morales MD MICROBIOLOGY - GENER AL ORDERABLES JONATHAN CORTEZ documented in this encounter Visit Diagnoses Diagnosis Encounter for laboratory testing for COVID-19 virus documented in this encounter Care Teams Wire Wheeler Relationship Specialty Start Date End Date Elodia Steinberg APRN PCP - General Family Medicine 06/20/20 documented as of this encounter
--- OUTSIDE RECORDS SUMMARY | 2024-10-15 14:57 | XMS_ITS | Encounter Summary ---
Author Organization [facility] Address [address] [place] [address] Care Team Providers Care Associate Director Regulatory Affairs Name Role Phone Elodia Steinberg MABEL Primary Care Provider Encounter Details Date Type Department Care Team (Latest Contact Info) Description 08/04/2020 Lab Requisition [facility] COVID Drive Through [address] [place] [address] [address] [place] [address] Jayce Morales MD [address] [place] [address] Encounter for laboratory testing for COVID-19 virus [...] Roel Solorzano, Ph.D., Laboratory DirectorTests performed at [facility] Nasopharyngeal swab / Unknown 08/04/2020 3:26 PM EST 08/04/2020 3:26 PM EST Narrative JONATHAN CORTEZ - 08/05/2020 3:32 PM EST Performed by [facility] [address] [place] [address], CLIA# [id number] and [place] License# [id number] Jayce Morales MD MICROBIOLOGY - GENER AL ORDERABLES JONATHAN CORTEZ documented in this encounter Visit Diagnoses Diagnosis Encounter for laboratory testing for COVID-19 virus documented in this encounter Care Teams Associate Director Regulatory Affairs Relationship Specialty Start Date End Date Elodia Steinberg, MABEL PCP - General Family Medicine 06/20/20 documented as of this encounter
--- OUTSIDE RECORDS SUMMARY | 2024-10-15 14:57 | XMS_ITS | Encounter Summary ---
Author Organization [facility] Address [address] [place] [address] Care Team Providers Care Clinic Office Manager Name Role Phone Elodia Steinberg MABEL Primary Care Provider Encounter Details Date Type Department Care Team (Latest Contact Info) Description [facility]/20/2020 [facility] [address] [place] [address] [address] [place] [address] Kip Bullock PA-C [address] [place] [address] Encounter for laboratory testing for COVID-19 virus [...] Luan Haji, Ph.D., Laboratory DirectorTests performed at [facility] Nasopharyngeal swab / Unknown 07/20/2020 5:15 PM EST 07/20/2020 5:16 PM EST Narrative JONATHAN CORTEZ - 07/22/2020 9:44 AM EST Performed by [facility] [address] [place] [address], CLIA# [id number] and [place] License# [id number] Kip Bullock PA-C MICROBIOLOGY - NERAL ORDERABLES JONATHAN CORTEZ documented in this encounter Visit Diagnoses Diagnosis Encounter for laboratory testing for COVID-19 virus documented in this encounter Care Teams Clinic Office Manager Relationship Specialty Start Date End Date Elodia Steinberg APRN PCP - General Family Medicine 06/20/20 documented as of this encounter
--- OUTSIDE RECORDS SUMMARY | 2024-10-15 14:57 | XMS_ITS | Encounter Summary ---
Author Organization [facility] Address [address] [place] [address] Care Team Providers Care Quality Control Coordinator Name Role Phone Elodia Steinberg MABEL Primary Care Provider Encounter Details Date Type Department Care Team (Latest Contact Info) Description 09/14/2020 Lab Requisition [facility] COVID Drive Through [address] [place] [address] [address] [place] [address] Jayce Morales MD [address] [place] [address] Encounter for laboratory testing for COVID-19 virus [...] Roel Solorzano, Ph.D., Laboratory DirectorTests performed at [facility] Nasopharyngeal swab / Unknown 09/14/2020 12:08 PM EST 09/14/2020 12:09 PM EST Narrative JONATHAN CORTEZ - 09/15/2020 9:12 AM EST Performed by [facility] [address] [place] [address], CLIA# [id number] and [place] License# [id number] Jayce Morales MD MICROBIOLOGY - GENER AL ORDERABLES JONATHAN CORTEZ documented in this encounter Visit Diagnoses Diagnosis Encounter for laboratory testing for COVID-19 virus documented in this encounter Care Teams Quality Control Coordinator Relationship Specialty Start Date End Date Elodia Steinberg APRN PCP - General Family Medicine 06/20/20 documented as of this encounter
--- OUTSIDE RECORDS SUMMARY | 2024-10-15 14:57 | XMS_ITS | Clinical Summary ---
Author Organization [facility] Address [address] [place] [address] Care Team Providers Care Lift Slab Operator Name Role Phone Idris Elodia Primary Care Provider [phone] Allergies No known active allergies Medications miSOPROStoL [...] 08/12/2020, 08/12/2020, Additional history exists Influenza Vaccine (Season Ended) 2025 05/14/2022, 07/13/2021, 07/13/2021 Pap Smear 07/14/2026 07/14/2023 DTaP,Tdap,and [...] 5 Years) and At-Risk Patients (6 to 49 Years) Aged Out No longer eligible based [...] high-risk Negative Negative 07/15/2023 3:02 PM EST [facility] Brushing Cervix uteri structure / Unknown Non-blood Collection / Unknown 07/14/2023 2:50 PM EST 07/14/2023 6:12 PM EST Narrative [facility] - 07/15/2023 3:02 PM EST Negative [...] LAB MICROBIOLOGY - GENERAL ORDERABLES Final Result [facility] [address] [place] [address], * Pap Test (07/14/2023 2:50 PM EST) Case Report Cytology ?Case: [id number] ? Authorizing Provider: ??Eve Davila MD ?Collected: ? 07/14/2023 1450 ? Ordering Location: ? [facility] Department of Received: ?07/15/2023 0817 ? Women's Health ? First Screen: ?Diya Benavides CT (ASCP) ? Specimen: ?Cytopathology, screening PAP test, Cervix ? 07/15/2023 3:02 PM EST [facility] LMP 07/06/2023 07/15/2023 3:02 PM EST [facility] Interpretation Negative for intraepithelial lesion or malignancy 07/15/2023 3:02 PM EST [facility] at 1502 EST Specimen Adequacy Satisfactory for evaluation, endocervical/verma sformation zone component present 07/15/2023 3:02 PM EST [facility] Specimen Processing Thin Prep pap with manual screen/rescreen or review 07/15/2023 3:02 PM EST [facility] Educational Note The Pap test is a screening test which carries an inherent false negative rate. These test results should be correlated with the patient's clinical findings and history. 07/15/2023 3:02 PM [facility] Embedded Images 3:02 PM [facility] High Risk HPV Nucleic Acid Detection Negative 07/15/2023 3:02 PM [facility] Comment: Negative results indicate HPV E6/E7 [...] Department of Pathology and Laboratory Medicine at [facility] Brushing Cervix uteri structure / Unknown Non-blood Collection / Unknown 07/14/2023 2:50 PM EST 07/15/2023 8:17 AM EST us Eve Davila MD LAB PATHOLOGY/CYTOLOGY ORD ERABLES Final Result [facility] [address] [place] [address], [place] [phone] from Last 3 Months or Most Recently Relevant to Health Maintenance Insurance [employer] Care Teams Lift Slab Operator Relationship Specialty Start Date End Date Elodia Steinberg [address] [place] [phone] PCP - General Family Medicine 05/02/23
--- OUTSIDE RECORDS SUMMARY | 2024-10-15 14:57 | XMS_ITS | Encounter Summary ---
Author Organization [facility] Address [address] [place] [address] Care Team Providers Care Physician'S Aide Name Role Phone Elodia Steinberg MABEL Primary Care Provider Encounter Details Date Type Department Care Team (Latest Contact Info) Description 09/08/2020 Lab Requisition [facility] COVID Drive Through [address] [place] [address] [address] [place] [address] Jayce Morales MD [address] [place] [address] Encounter for laboratory testing for COVID-19 virus [...] Roel Solorzano, Ph.D., Laboratory DirectorTests performed at [facility] Nasopharyngeal swab / Unknown 09/08/2020 2:54 PM EST 09/08/2020 2:54 PM EST Narrative JONATHAN CORTEZ - 09/09/2020 2:17 PM EST Performed by [facility]., [address] [place] [address], CLIA# [id number] and [place] License# [id number] Jayce Morales MD MICROBIOLOGY - GENER AL ORDERABLES JONATHAN CORTEZ documented in this encounter Visit Diagnoses Diagnosis Encounter for laboratory testing for COVID-19 virus documented in this encounter Care Teams Physician'S Aide Relationship Specialty Start Date End Date Elodia Steinberg APRN PCP - General Family Medicine 06/20/20 documented as of this encounter
--- OUTSIDE RECORDS SUMMARY | 2024-10-15 14:57 | XMS_ITS | Encounter Summary ---
Author Organization [facility] Address [address] [place] [address] Care Team Providers Care Optical Element Coater Name Role Phone Elodia Steinberg MABEL Primary Care Provider Encounter Details Date Type Department Care Team (Latest Contact Info) Description 08/25/2020 Lab Requisition [facility] COVID Drive Through [address] [place] [address] [address] [place] [address] Jayce Morales MD [address] [place] [address] Encounter for laboratory testing for COVID-19 virus [...] Roel Solorzano, Ph.D., Laboratory DirectorTests performed at [facility] Nasopharyngeal swab / Unknown 08/25/2020 1:01 PM EST 08/25/2020 1:02 PM EST Narrative JONATHAN CORTEZ - 08/26/2020 3:32 PM EST Performed by [facility] [address] [place] [address], CLIA# [id number] and [place] License# [id number] Jayce Morales MD MICROBIOLOGY - GENER AL ORDERABLES JONATHAN CORTEZ documented in this encounter Visit Diagnoses Diagnosis Encounter for laboratory testing for COVID-19 virus documented in this encounter Care Teams Optical Element Coater Relationship Specialty Start Date End Date Elodia Steinberg APRN PCP - General Family Medicine 06/20/20 documented as of this encounter
--- OUTSIDE RECORDS SUMMARY | 2024-10-15 14:57 | XMS_ITS | Clinical Summary ---
Author Organization [facility] Address [address] [place] [id number] Care Team Providers Care Ethnoarchaeology Professor Name Role Phone Idris Elodia SEED TRUCKER Primary Care Provider [phone] Social History Tobacco Use Types Packs/Day Years [...] Influencers of Health Screening 08/10/2023 Influenza Vaccine (Season Ended) 2025 03/17/2017, 04/25/2011, 06/15/2007 DTaP,Tdap,and Td Vaccines (10 - [...] age to complete this topic Meningococcal B Vaccine Aged Out No l onger eligible based on patient's age to complete this topic RSV Immunization Patients Under 20 months Aged Out No longer eligible based on patient's age to complete this topic Care Teams Ethnoarchaeology Professor Relationship Specialty Start Date End Date Elodia Steinberg NP [address] [place] [address] PCP - General 05/13/22
--- OUTSIDE RECORDS SUMMARY | 2024-10-15 14:57 | XMS_ITS | Encounter Summary ---
Author Organization [facility] Address [address] [place] [address] Care Team Providers Care Executive Coordinator Name Role Phone Elodia Steinberg MABEL Primary Care Provider Encounter Details Date Type Department Care Team (Latest Contact Info) Description 08/18/2020 Lab Requisition [facility] COVID Drive Through [address] [place] [address] [address] [place] [address] Jayce Morales MD [address] [place] [address] Encounter for laboratory testing for COVID-19 virus [...] Luan Haji, Ph.D., Laboratory DirectorTests performed at [facility] Nasopharyngeal swab / Unknown 08/18/2020 11:37 AM EST 08/18/2020 11:37 AM EST Narrative JONATHAN CORTEZ - 08/19/2020 3:35 PM EST Performed by [facility]., [address] [place] [address], CLIA# [id number] and [place] License# [id number] Jayce Morales MD MICROBIOLOGY - GENER AL ORDERABLES JONATHAN CORTEZ documented in this encounter Visit Diagnoses Diagnosis Encounter for laboratory testing for COVID-19 virus documented in this encounter Care Teams Executive Coordinator Relationship Specialty Start Date End Date Elodia Steinberg APRN PCP - General Family Medicine 06/20/20 documented as of this encounter
--- OUTSIDE RECORDS SUMMARY | 2024-10-15 14:57 | XMS_ITS | Clinical Summary ---
Author Organization [facility] Address [address] [place] [address] Care Team Providers Care Diving Coach Name Role Phone Elodia Steinberg APRN Primary Care Provider [phone] Allergies No known active allergies Medications No [...] age to complete this topic Care Teams Diving Coach Relationship Specialty Start Date End Date Elodia Steinberg, MABEL [address] [facility] [place] [address] PCP - General Family Medicine 05/13/22
--- OUTSIDE RECORDS SUMMARY | 2024-10-15 14:57 | XMS_ITS | Encounter Summary ---
Author Organization [facility] Address [address] [place] [address] Care Team Providers Care Mechanical Assembler Name Role Phone Elodia Steinberg MABEL Primary Care Provider Encounter Details Date Type Department Care Team (Latest Contact Info) Description 10/06/2020 Lab Requisition [facility] COVID Drive Through [address] [place] [address] [address] [place] [address] Jayce Morales MD [address] [place] [address] Encounter for laboratory testing for COVID-19 virus [...] Detected Not Detected 10/06/2020 7:21 PM EDT [facility] Comment: Negative results do [...] was completed and performance characteristics established by [facility] as per the FDA and CLIA requirement for this EUA. The Aptima SARS-CoV-2 assay Letter of Authorization, along with the authorized Fact Sheet for Healthcare Providers, the authorized Fact Sheet for Patients, and authorized labeling are available on the FDA website: https://www.fda.gov/medical-devices/erbypflam-eyursjdulz-zwseqay-devices/emergen - g-vhxtssrgselizi-qdaqibl-devices. Performed at [facility], [place], [place] ??[place] License 0385 ??CLIA [id number] Source Nasopharyngeal 10/06/2020 7:21 PM EDT [facility] Comment:Performed at [facility], [place] license No. [id number] CLIA No. [id number] Microbiology Nasopharyngeal swab / Unknown 10/06/2020 3:06 PM EDT 10/06/2020 3:06 PM EDT Jayce Morales MD MICROBIOLOGY - GENER AL ORDERABLES [facility] [address] [place] [address] documented in this encounter Visit Diagnoses Diagnosis Encounter for laboratory testing for COVID-19 virus documented in this encounter Care Teams Mechanical Assembler Relationship Specialty Start Date End Date Elodia Steinberg APRN PCP - General Family Medicine 06/20/20 documented as of this encounter
--- OUTSIDE RECORDS SUMMARY | 2024-10-15 14:57 | XMS_ITS | Clinical Summary ---
Author Organization [facility] Address [address] [place] [address] Care Team Providers Care Biophysics Professor Name Role Phone Elodia Steinberg APRN Primary [...] age to complete this topic Care Teams Biophysics Professor Relationship Specialty Start Date End Date Elodia Steinberg APRN PCP - General Family Medicine 06/20/20
--- OUTSIDE RECORDS SUMMARY | 2024-10-15 14:57 | XMS_ITS | Encounter Summary ---
Author Organization [facility] Address [address] [place] [address] Care Team Providers Care Business Banking Sales Assistant Name Role Phone IdrisElodia MABEL Primary Care Provider Encounter Details Date Type Department Care Team (Latest Contact Info) Description 06/20/2020 Lab Requisition [facility] COVID Drive Through [address] [place] [address] [address] [place] [address] Kip Bullock PA-C [address] [place] [address] Encounter for laboratory testing for COVID-19 virus [...] recommended.Final report signed by Jeronimo Tucker, Ph.D., [facility], Laboratory DirectorTests performed at [facility] Nasopharyngeal swab / Unknown 06/20/2020 2:39 PM EST 06/20/2020 2:39 PM EST [facility]ative [facility] - 06/21/2020 10:56 PM EST Performed by [facility] [address] [place] [address], CLIA# [id number] and [place] License# [id number] Kip Bullock PA-C MICROBIOLOGY - NERAL ORDERABLES JONATHAN CORTEZ documented in this encounter Visit Diagnoses Diagnosis Encounter for laboratory testing for COVID-19 virus documented in this encounter Care Teams Business Banking Sales Assistant Relationship Specialty Start Date End Date Elodia Steinberg APRN PCP - General Family Medicine 06/20/20 documented as of this encounter
--- OUTSIDE RECORDS SUMMARY | 2024-10-15 14:57 | XMS_ITS | Encounter Summary ---
Author Organization [facility] Address [address] [place] [address] Care Team Providers Care Director Social Service Name Role Phone Elodia Steinberg MABEL Primary Care Provider Encounter Details Date Type Department Care Team (Latest Contact Info) Description 08/11/2020 Lab Requisition [facility] COVID Drive Through [address] [place] [address] [address] [place] [address] Jayce Morales MD [address] [place] [address] Encounter for laboratory testing for COVID-19 virus [...] Luan Haji, Ph.D., Laboratory DirectorTests performed at [facility] Nasopharyngeal swab / Unknown 08/11/2020 11:45 AM EST 08/11/2020 11:45 AM EST Narrative JONATHAN CORTEZ - 08/12/2020 11:15 AM EST Performed by [facility] [address] [place] [address], CLIA# [id number] and [place] License# [id number] Jayce Morales MD MICROBIOLOGY - GENER AL ORDERABLES JONATHAN CORTEZ documented in this encounter Visit Diagnoses Diagnosis Encounter for laboratory testing for COVID-19 virus documented in this encounter Care Teams Director Social Service Relationship Specialty Start Date End Date Elodia Steinberg APRN PCP - General Family Medicine 06/20/20 documented as of this encounter
--- OUTSIDE RECORDS SUMMARY | 2024-10-15 14:57 | XMS_ITS | Data Portability ---
Author Organization [place] - [facility], [facility] Address [address] [place] [address] Care Team Providers Care Ear Nose Throat Physician Name Role Phone OLGA ROSALES Internet Sales Manager SEAN WANG Patient Resource Specialist ALEKSANDRA STEINBERG Primary Care Provider [phone] Assessment No assessment recorded. Plan of Treatment Reminders Order Date Submit Date Provider Last Modified By Organization Details Last Modified Time Details Appointments PHYSICAL EXAM 45 2025 08:30A M Aleksandra Steinberg, MANAGER OF MANUFACTURING Not available Not available Not available Lab iron + TIBC + ferritin, serum 2024 025 [employer] [facility], [address] [facility], [address], [place], [address], 08/24/2024 10:08:42 urinalysi s, dipstick 2024 025 [email or web address] 66 [facility], [address] [facility], [place], [address], 08/23/2024 08:52:47 CBC w/ auto diff 2024 025 [employer] [facility], [address] [facility], [address], [place], [address], 08/24/2024 10:08:44 CMP, serum or plasma 2024 025 [employer] [facility], [address] [facility], [address], [place], [address], 08/24/2024 10:08:43 TSH, serum or plasma 2024 025 [facility], [address], [address], [place], [address], 08/24/2024 10:08:44 lipid panel, serum 2024 025 [facility], [address] [facility] [place] [address], [address], [place], [address], 08/24/2024 10:08:43 iron + TIBC + ferritin, serum 2023 024 [facility], [address] [facility] [address], [address], [place], [address], 08/16/2023 07:24:44 CBC w/ auto diff 2023 024 [facility], [address] [facility] [address], [address], [place], [address], 08/16/2023 07:24:46 CMP, serum or plasma 2023 024 [facility], [address] [facility] [address], [address], [place], [address], 08/16/2023 07:24:45 TSH, serum or plasma 2023 024 [facility], [address] [facility] [address], [address], [place], [address], 08/16/2023 07:24:46 lipid panel, serum 2023 024 [facility], [address] [facility] [address], [address], [place], [address], 08/16/2023 07:24:45 urinalysi s, dipstick 2023 024 [email or web address] 66 [facility], [address], [place], [address], 08/15/2023 08:50:03 Referral otolaryng ologist referral - 1 week new onset pulsatile right ear tinnitus 2023 024 BRIDGET Camejo MD, [address] [place], [address], 10/07/2023 13:52:56 vein specialis t referral - varicose vein pain 2023 024 [facility], [address], [address], [place], [address], 09/10/2023 08:10:10 Procedures None recorded. Surgeries None recorded. Imaging None recorded. Medication Orders lorazepam 0.5 mg tablet 2023 024 [id number], [address] [place], [address], 08/23/2024 08:48:59 Patient TargetsNo targets recorded. Patient Instructions Encounter Date Encounter Id Patient Instructions Last Modified By Organization Details Last Modified Time 10/07/2023 [id number] A total of 45 minutes was spent [...] Aleksandra Steinberg, Family Medicine, Encounter Date: 08/15/2023 [employer] Internship Referral fo r Subjective pulsatile tinnitus of [...] 91 mcg/d L 40-190 normal Not Available [facility] [place] [facility] [address], [place], [address], 08/16/2023 07:24:44 08/15/19 24 08/16/2023 IRON, TIBC AND YVETTE TIN PANEL iron binding capacity 328 mcg/d L_(ca lc) 250-45 0 normal Not Available [facility] [place] [facility] [address], [place], [address], 08/16/2023 07:24:44 08/15/19 24 08/16/2023 IRON, TIBC AND YVETTE TIN PANEL % saturation 28 %_(ca lc) 16-45 normal Not Available [facility] [address], [place], [address], 08/16/2023 07:24:44 08/15/19 24 08/16/2023 IRON, TIBC AND YVETTE TIN PANEL ferritin 5 NG/mL 16-154 low Not Available [facility] [address], [place], [address], 08/16/2023 07:24:44 08/15/19 24 08/16/2023 LIPID PANEL WITH REFLE X TO DIREC T LDL cholesterol, total 197 mg/dL <200 normal Not Available [facility] [place] [facility] [address], [place], [address], 08/16/2023 07:24:45 08/15/19 24 08/16/2023 LIPID PANEL WITH REFLE X TO DIREC T LDL HDL cholesterol 61 mg/dL > or = 50 normal Not Available [facility] [address], [place], [address], 08/16/2023 07:24:45 08/15/19 24 08/16/2023 LIPID PANEL WITH REFLE X TO DIREC T LDL triglyceride s 77 mg/dL <150 normal Not Available [facility] [address], [place], [address], 08/16/2023 07:24:45 08/15/19 24 08/16/2023 LIPID PANEL [...] lated using the Kirti n-Hop kins calcu latio n, which is a valid ated novel prashanth dacosta tam r accur acy than the Fried chidi equat ion in the estim ation of LDL-C . Kirti aranda SS et al. PRINCE. 2013; 310(1 9): 2061- 2068 (http ://ed ucati on.Bella Greenwood ProtectWise. com/f aq/FA Q164) Not Available [facility] [place] [facility] [address], [place], [address], 08/16/2023 07:24:45 08/15/19 24 08/16/2023 LIPID PANEL WITH REFLE X TO DIREC T LDL chol/HDLC ratio 3.2 (calc ) <5.0 normal Not Available [facility] [place] [facility] [address], [place], [address], 08/16/2023 07:24:45 08/15/19 24 08/16/2023 LIPID PANEL WITH REFLE X TO DIREC T LDL non HDL cholesterol 136 mg/dL _(kathia c) <130 high For patie nts with diabe dayne plus 1 major ASCVD risk facto r, treat ing to a non-H DL-C goal of <100 mg/dL (LDL- C of <70 mg/dL ) is shazia herrerao n. Not Available [facility] [address], [place], [address], 08/16/2023 07:24:45 08/15/19 24 08/16/2023 COMPR EHENS GILDA METAB OLIC PANEL glucose 82 mg/dL 65-99 normal Fasti ng refer ence inter darren Not Available [facility] [address], [place], [address], 08/16/2023 07:24:45 08/15/19 24 08/16/2023 COMPR EHENS GILDA METAB OLIC PANEL urea nitrogen (BUN) 10 mg/dL 7-25 normal Not Available [facility] [address], [place], [address], 08/16/2023 07:24:45 08/15/19 24 08/16/2023 COMPR EHENS GILDA METAB OLIC PANEL creatinine 0.73 mg/dL 0.50-0 .97 normal Not Available [facility] [address], [place], [address], 08/16/2023 07:24:45 08/15/19 24 08/16/2023 COMPR EHENS GILDA METAB OLIC PANEL eGFR 110 mL/mi n/1.7 3m2 > or = 60 normal Not Available [facility] [address], [place], [address], 08/16/2023 07:24:45 08/15/19 24 08/16/2023 COMPR EHENS GILDA METAB OLIC PANEL BUN/creatini ne ratio SEE NOTE: (calc ) 6-22 Not Repor travon: BUN and Creat inine are withi n refer ence range . Not Available [facility] [address] [place], [address], 08/16/2023 07:24:45 08/15/19 24 08/16/2023 COMPR EHENS GILDA METAB OLIC PANEL sodium 136 mmol/ L 135-14 6 normal Not Available [facility] [address], [place], [address], 08/16/2023 07:24:45 08/15/19 24 08/16/2023 COMPR EHENS GILDA METAB OLIC PANEL potassium 3.8 mmol/ L 3.5-5. 3 normal Not Available [facility] [address], [place], [address], 08/16/2023 07:24:45 08/15/19 24 08/16/2023 COMPR EHENS GILDA METAB OLIC PANEL chloride 101 mmol/ L 98-110 normal Not Available [facility] [address], [place], [address], 08/16/2023 07:24:45 08/15/19 24 08/16/2023 COMPR EHENS GILDA METAB OLIC PANEL carbon dioxide 28 mmol/ L 20-32 normal Not Available [facility] [address], [place], [address], 08/16/2023 07:24:45 08/15/19 24 08/16/2023 COMPR EHENS GILDA METAB OLIC PANEL calcium 9.2 mg/dL 8.6-10 .2 normal Not Available [facility] [address], [place], [address], 08/16/2023 07:24:45 08/15/19 24 08/16/2023 COMPR EHENS GILDA METAB OLIC PANEL protein, total 7.3 g/dL 6.1-8. 1 normal Not Available [facility] [address], [place], [address], 08/16/2023 07:24:45 08/15/19 24 08/16/2023 COMPR EHENS GILDA METAB OLIC PANEL albumin 4.4 g/dL 3.6-5. 1 normal Not Available [facility] [address], [place], [address], 08/16/2023 07:24:45 08/15/19 24 08/16/2023 COMPR EHENS GILDA METAB OLIC PANEL globulin 2.9 g/dL_ (calc ) 1.9-3. 7 normal Not Available [facility] [address], [place], [address], 08/16/2023 07:24:45 08/15/19 24 08/16/2023 COMPR EHENS GILDA METAB OLIC PANEL albumin/glob ulin ratio 1.5 (calc ) 1.0-2. 5 normal Not Available [facility] [address], [place], [address], 08/16/2023 07:24:45 08/15/19 24 08/16/2023 COMPR EHENS GILDA METAB OLIC PANEL bilirubin, total 0.4 mg/dL 0.2-1. 2 normal Not Available [facility] [address], [place], [address], 08/16/2023 07:24:45 08/15/19 24 08/16/2023 COMPR EHENS GILDA METAB OLIC PANEL alkaline phosphatase 51 U/L 31-125 normal Not Available [facility] [address], [place], [address], 08/16/2023 07:24:45 08/15/19 24 08/16/2023 COMPR EHENS GILDA METAB OLIC PANEL AST 10 U/L 10-30 normal Not Available [facility] [address], [place], [address], 08/16/2023 07:24:45 08/15/19 24 08/16/2023 COMPR EHENS GILDA METAB OLIC PANEL ALT 8 U/L 6-29 normal Not Available [facility] [place] [facility] [address], [place], [address], 08/16/2023 07:24:45 08/15/19 24 08/16/2023 CBC (INCL UDES DIFF/ PLT) white blood cell count 6.0 thous and/u L 3.8-10 .8 normal Not Available [facility] [place] [facility] [address], [place], [address], 08/16/2023 07:24:46 08/15/19 24 08/16/2023 CBC (INCL UDES DIFF/ PLT) red blood cell count 4.01 tonya on/uL 3.80-5 .10 normal Not Available [facility] [place] [facility] [address], [place], [address], 08/16/2023 07:24:46 08/15/19 24 08/16/2023 CBC (INCL UDES DIFF/ PLT) hemoglobin 11.2 g/dL 11.7-1 5.5 low Not Available [facility] [place] [facility] [address], [place], [address], 08/16/2023 07:24:46 08/15/19 24 08/16/2023 CBC (INCL UDES DIFF/ PLT) hematocrit 34.5 % 35.0-4 5.0 low Not Available [facility] [place] [facility] [address], [place], [address], 08/16/2023 07:24:46 08/15/19 24 08/16/2023 CBC (INCL UDES DIFF/ PLT) MCV 86.0 fL 80.0-1 00.0 normal Not Available [facility] [place] [facility] [address], [place], [address], 08/16/2023 07:24:46 08/15/19 24 08/16/2023 CBC (INCL UDES DIFF/ PLT) MCH 27.9 pg 27.0-3 3.0 normal Not Available [facility] [place] [facility] [address], [place], [address], 08/16/2023 07:24:46 08/15/19 24 08/16/2023 CBC (INCL UDES DIFF/ PLT) MCHC 32.5 g/dL 32.0-3 6.0 normal Not Available [facility] [place] [facility] [address], [place], [address], 08/16/2023 07:24:46 08/15/19 24 08/16/2023 CBC (INCL UDES DIFF/ PLT) RDW 13.0 % 11.0-1 5.0 normal Not Available [facility] [place] [facility] [address], [place], [address], 08/16/2023 07:24:46 08/15/19 24 08/16/2023 CBC (INCL UDES DIFF/ PLT) platelet count 364 thous and/u L 140-40 0 normal Not Available [facility] [place] [facility] [address], [place], [address], 08/16/2023 07:24:46 08/15/19 24 08/16/2023 CBC (INCL UDES DIFF/ PLT) MPV 11.1 fL 7.5-12 .5 normal Not Available [facility] [place] [facility] [address], [place], [address], 08/16/2023 07:24:46 08/15/19 24 08/16/2023 CBC (INCL UDES DIFF/ PLT) absolute neutrophils 3756 cells /uL 1500-7 800 normal Not Available [facility] [place] [facility] [address], [place], [address], 08/16/2023 07:24:46 08/15/19 24 08/16/2023 CBC (INCL UDES DIFF/ PLT) absolute lymphocytes 1566 cells /uL 850-39 00 normal Not Available [facility] [place] [facility] [address], [place], [address], 08/16/2023 07:24:46 08/15/19 24 08/16/2023 CBC (INCL UDES DIFF/ PLT) absolute monocytes 600 cells /uL 200-95 0 normal Not Available [facility] [place] [facility] [address], [place], [address], 08/16/2023 07:24:46 08/15/19 24 08/16/2023 CBC (INCL UDES DIFF/ PLT) absolute eosinophils 48 cells /uL 15-500 normal Not Available [facility] [place] [facility] [address], [place], [address], 08/16/2023 07:24:46 08/15/19 24 08/16/2023 CBC (INCL UDES DIFF/ PLT) absolute basophils 30 cells /uL 0-200 normal Not Available [facility] [place] [facility] [address], [place], [address], 08/16/2023 07:24:46 08/15/19 24 08/16/2023 CBC (INCL UDES DIFF/ PLT) neutrophils 62.6 % normal Not Available [facility] [address], [place], [address], 08/16/2023 07:24:46 08/15/19 24 08/16/2023 CBC (INCL UDES DIFF/ PLT) lymphocytes 26.1 % normal Not Available [facility] [place] [facility] [address] [place], [address], 08/16/2023 07:24:46 08/15/19 24 08/16/2023 CBC (INCL UDES DIFF/ PLT) monocytes 10.0 % normal Not Available [facility] [place] [facility] [address], [place], [address], 08/16/2023 07:24:46 08/15/19 24 08/16/2023 CBC (INCL UDES DIFF/ PLT) eosinophils 0.8 % normal Not Available [facility] [place] [facility] [address], [place], [address], 08/16/2023 07:24:46 08/15/19 24 08/16/2023 CBC (INCL UDES DIFF/ PLT) basophils 0.5 % normal Not Available [facility] [place] [facility] [address], [place], [address], 08/16/2023 07:24:46 08/15/19 24 08/16/2023 TSH W/REF ASAEL TO FT4 TSH w/reflex to FT4 1.34 mIU/L normal Refer ence Range > or = 20 Years 0.40- 4.50 Pregn ginger Range s First trime ster 0.26- 2.66 Secon d trime ster 0.55- 2.73 Third trime ster 0.43- 2.91 Not Available [facility] [place] [facility] [address], [place], [address], 08/16/2023 07:24:46 08/15/19 24 08/15/2023 urina lysis , dipst ick Glucose Negati ve Not Available [facility] [address] [facility], [place], [address], 08/15/2023 08:41:39 08/15/19 24 08/15/2023 urina lysis , dipst ick Leukocytes Negati ve Not Available [facility] [address] [facility], [place], [address], 08/15/2023 08:41:39 08/15/19 24 08/15/2023 urina lysis , dipst ick Nitrate Negati ve Not Available [facility] [address], [place], [address], 08/15/2023 08:41:39 08/15/19 24 08/15/2023 urina lysis , dipst ick Urobilinogen Negati ve Not Available [facility] [address], [place], [address], 08/15/2023 08:41:39 08/15/19 24 08/15/2023 urina lysis , dipst ick Protein Negati ve Not Available [facility] [address], [place], [address], 08/15/2023 08:41:39 08/15/19 24 08/15/2023 urina lysis , dipst ick pH 6.0 Not Available [facility] [address], [place], [address], 08/15/2023 08:41:39 08/15/19 24 08/15/2023 urina lysis , dipst ick Blood Negati ve Not Available [facility] [address], [place], [address], 08/15/2023 08:41:39 08/15/19 24 08/15/2023 urina lysis , dipst ick Specific Marmaduke 1.015 Not Available [facility] [address], [place], [address], 08/15/2023 08:41:39 08/15/19 24 08/15/2023 urina lysis , dipst ick Ketone Negati ve Not Available [facility] [address], [place], [address], 08/15/2023 08:41:39 08/15/19 24 08/15/2023 urina lysis , dipst ick Bilirubin Negati ve Not Available [facility] [address], [place], [address], 08/15/2023 08:41:39 08/23/19 25 08/24/2024 IRON, TIBC AND YVETTE TIN PANEL iron, total 39 mcg/d L 40-190 low Not Available [facility] [place] [facility] [address], [place], [address], 08/24/2024 10:08:42 08/23/19 25 08/24/2024 IRON, TIBC AND YVETTE TIN PANEL iron binding capacity 326 mcg/d L_(ca lc) 250-45 0 normal Not Available [facility] [place] [facility] [address], [place], [address], 08/24/2024 10:08:42 08/23/19 25 08/24/2024 IRON, TIBC AND YVETTE TIN PANEL % saturation 12 %_(ca lc) 16-45 low Not Available [facility] [place] [facility] [address], [place], [address], 08/24/2024 10:08:42 08/23/19 25 08/24/2024 IRON, TIBC AND YVETTE TIN PANEL ferritin 6 NG/mL 16-154 low Not Available [facility] [place] [facility] [address], [place], [address], 08/24/2024 10:08:42 08/23/19 25 08/24/2024 LIPID PANEL WITH REFLE X TO DIREC T LDL cholesterol, total 193 mg/dL <200 normal Not Available [facility] [place] [facility] [address], [place], [address], 08/24/2024 10:08:43 08/23/19 25 08/24/2024 LIPID PANEL WITH REFLE X TO DIREC T LDL HDL cholesterol 64 mg/dL > or = 50 normal Not Available [facility] [place] [facility] [address] [place], [place], [address], 08/24/2024 10:08:43 08/23/19 25 08/24/2024 LIPID PANEL WITH REFLE X TO DIREC T LDL triglyceride s 69 mg/dL <150 normal Not Available [facility] [place] [facility] [address] [place], [place], [address], 08/24/2024 10:08:43 08/23/19 25 08/24/2024 LIPID PANEL [...] which is a valid ated novel prashanth vargas acy than the Fried chidi equat ion in the estim ation of LDL-C . Kirti aranda SS et al. PRINCE. 2013; 310(1 9): 2061- 2068 (http ://ed ucati on.Bella madrigalLoggly. com/f aq/FA Q164) Not Available [facility] [place] [facility] [address] [place], [place], [address], 08/24/2024 10:08:43 08/23/19 25 08/24/2024 LIPID PANEL WITH REFLE X TO DIREC T LDL chol/HDLC ratio 3.0 (calc ) <5.0 normal Not Available [facility] [place] [facility] [address] [place], [place], [address], 08/24/2024 10:08:43 08/23/19 25 08/24/2024 LIPID PANEL WITH REFLE X TO DIREC T LDL non HDL cholesterol 129 mg/dL _(kathia c) <130 normal For patie nts with diabe dayne plus 1 major ASCVD risk facto r, treat ing to a non-H DL-C goal of <100 mg/dL (LDL- C of <70 mg/dL ) is consi dered a thera peuti c optio n. Not Available [facility] [place] [facility] [address], [place], [address], 08/24/2024 10:08:43 08/23/19 25 08/24/2024 COMPR EHENS GILDA METAB OLIC PANEL glucose 88 mg/dL 65-99 normal Fasti ng refer ence inter darren Not Available [facility] [address], [place], [address], 08/24/2024 10:08:43 08/23/19 25 08/24/2024 COMPR EHENS GILDA METAB OLIC PANEL urea nitrogen (BUN) 12 mg/dL 7-25 normal Not Available [facility] [place] [facility] [address], [place], [address], 08/24/2024 10:08:43 08/23/19 25 08/24/2024 COMPR EHENS GILDA METAB OLIC PANEL creatinine 0.77 mg/dL 0.50-0 .97 normal Not Available [facility] [place] [facility] [address], [place], [address], 08/24/2024 10:08:43 08/23/19 25 08/24/2024 COMPR EHENS GILDA METAB OLIC PANEL eGFR 102 mL/mi n/1.7 3m2 > or = 60 normal Not Available [facility] [address], [place], [address], 08/24/2024 10:08:43 08/23/19 25 08/24/2024 COMPR EHENS GILDA METAB OLIC PANEL BUN/creatini ne ratio SEE NOTE: (calc ) 6-22 Not Repor travon: BUN and Creat inine are withi n refer ence range . Not Available [facility] [address], [place], [address], 08/24/2024 10:08:43 08/23/19 25 08/24/2024 COMPR EHENS GILDA METAB OLIC PANEL sodium 135 mmol/ L 135-14 6 normal Not Available [facility] [address], [place], [address], 08/24/2024 10:08:43 08/23/19 25 08/24/2024 COMPR EHENS GILDA METAB OLIC PANEL potassium 4.1 mmol/ L 3.5-5. 3 normal Not Available [facility] [address], [place], [address], 08/24/2024 10:08:43 08/23/19 25 08/24/2024 COMPR EHENS GILDA METAB OLIC PANEL chloride 103 mmol/ L 98-110 normal Not Available [facility] [address], [place], [address], 08/24/2024 10:08:43 08/23/19 25 08/24/2024 COMPR EHENS GILDA METAB OLIC PANEL carbon dioxide 28 mmol/ L 20-32 normal Not Available [facility] [address], [place], [address], 08/24/2024 10:08:43 08/23/19 25 08/24/2024 COMPR EHENS GILDA METAB OLIC PANEL calcium 9.2 mg/dL 8.6-10 .2 normal Not Available [facility] [address], [place], [address], 08/24/2024 10:08:43 08/23/19 25 08/24/2024 COMPR EHENS GILDA METAB OLIC PANEL protein, total 7.2 g/dL 6.1-8. 1 normal Not Available [facility] [address], [place], [address], 08/24/2024 10:08:43 08/23/19 25 08/24/2024 COMPR EHENS GILDA METAB OLIC PANEL albumin 4.3 g/dL 3.6-5. 1 normal Not Available [facility] [address], [place], [address], 08/24/2024 10:08:43 08/23/19 25 08/24/2024 COMPR EHENS GILDA METAB OLIC PANEL globulin 2.9 g/dL_ (calc ) 1.9-3. 7 normal Not Available [facility] [address], [place], [address], 08/24/2024 10:08:43 08/23/19 25 08/24/2024 COMPR EHENS GILDA METAB OLIC PANEL albumin/glob ulin ratio 1.5 (calc ) 1.0-2. 5 normal Not Available [facility] [address], [place], [address], 08/24/2024 10:08:43 08/23/19 25 08/24/2024 COMPR EHENS GILDA METAB OLIC PANEL bilirubin, total 0.3 mg/dL 0.2-1. 2 normal Not Available [facility] [address], [place], [address], 08/24/2024 10:08:43 08/23/19 25 08/24/2024 COMPR EHENS GILDA METAB OLIC PANEL alkaline phosphatase 49 U/L 31-125 normal Not Available [facility] [address], [place], [address], 08/24/2024 10:08:43 08/23/19 25 08/24/2024 COMPR EHENS GILDA METAB OLIC PANEL AST 10 U/L 10-30 normal Not Available [facility] [place] [facility] [address], [place], [address], 08/24/2024 10:08:43 08/23/19 25 08/24/2024 COMPR EHENS GILDA METAB OLIC PANEL ALT 8 U/L 6-29 normal Not Available [facility] [place] [facility] [address], [place], [address], 08/24/2024 10:08:43 08/23/19 25 08/24/2024 CBC (INCL UDES DIFF/ PLT) white blood cell count 5.3 thous and/u L 3.8-10 .8 normal Not Available [facility] [place] [facility] [address], [place], [address], 08/24/2024 10:08:44 08/23/19 25 08/24/2024 CBC (INCL UDES DIFF/ PLT) red blood cell count 4.04 tonya on/uL 3.80-5 .10 normal Not Available [facility] [place] [facility] [address], [place], [address], 08/24/2024 10:08:44 08/23/19 25 08/24/2024 CBC (INCL UDES DIFF/ PLT) hemoglobin 11.2 g/dL 11.7-1 5.5 low Not Available [facility] [place] [facility] [address], [place], [address], 08/24/2024 10:08:44 08/23/19 25 08/24/2024 CBC (INCL UDES DIFF/ PLT) hematocrit 35.7 % 35.0-4 5.0 normal Not Available [facility] [address], [place], [address], 08/24/2024 10:08:44 08/23/19 25 08/24/2024 CBC (INCL UDES DIFF/ PLT) MCV 88.4 fL 80.0-1 00.0 normal Not Available [facility] [address] [place], [place], [address], 08/24/2024 10:08:44 08/23/19 25 08/24/2024 CBC (INCL UDES DIFF/ PLT) MCH 27.7 pg 27.0-3 3.0 normal Not Available [facility] [address] [place], [place], [address], 08/24/2024 10:08:44 08/23/19 25 08/24/2024 CBC (INCL UDES DIFF/ PLT) MCHC 31.4 g/dL 32.0-3 6.0 low For adult s, a sligh t decre ase in the calcu lated MCHC value (in the range of 30 to 32 g/dL) is most likel y not clini adele signi shanell t; jordi er, it shoul d be inter prete d with cauti on in [facility] n with other red cell kenn eters and the patie nt's clini kathia condi tion. Not Available [facility] [address] [place], [place], [address], 08/24/2024 10:08:44 08/23/19 25 08/24/2024 CBC (INCL UDES DIFF/ PLT) RDW 13.0 % 11.0-1 5.0 normal Not Available [facility] [address] [place], [place], [address], 08/24/2024 10:08:44 08/23/19 25 08/24/2024 CBC (INCL UDES DIFF/ PLT) platelet count 344 thous and/u L 140-40 0 normal Not Available [facility] [place] [facility] [address], [place], [address], 08/24/2024 10:08:44 08/23/19 25 08/24/2024 CBC (INCL UDES DIFF/ PLT) MPV 10.9 fL 7.5-12 .5 normal Not Available [facility] [place] [facility] [address], [place], [address], 08/24/2024 10:08:44 08/23/19 25 08/24/2024 CBC (INCL UDES DIFF/ PLT) absolute neutrophils 3063 cells /uL 1500-7 800 normal Not Available [facility] [place] [facility] [address], [place], [address], 08/24/2024 10:08:44 08/23/19 25 08/24/2024 CBC (INCL UDES DIFF/ PLT) absolute lymphocytes 1553 cells /uL 850-39 00 normal Not Available [facility] [place] [facility] [address], [place], [address], 08/24/2024 10:08:44 08/23/19 25 08/24/2024 CBC (INCL UDES DIFF/ PLT) absolute monocytes 594 cells /uL 200-95 0 normal Not Available [facility] [place] [facility] [address], [place], [address], 08/24/2024 10:08:44 08/23/19 25 08/24/2024 CBC (INCL UDES DIFF/ PLT) absolute eosinophils 58 cells /uL 15-500 normal Not Available [facility] [place] [facility] [address], [place], [address], 08/24/2024 10:08:44 08/23/19 25 08/24/2024 CBC (INCL UDES DIFF/ PLT) absolute basophils 32 cells /uL 0-200 normal Not Available [facility] [place] [facility] [address], [place], [address], 08/24/2024 10:08:44 08/23/19 25 08/24/2024 CBC (INCL UDES DIFF/ PLT) neutrophils 57.8 % normal Not Available [facility] [place] [facility] [address], [place], [address], 08/24/2024 10:08:44 08/23/19 25 08/24/2024 CBC (INCL UDES DIFF/ PLT) lymphocytes 29.3 % normal Not Available [facility] [place] [facility] [address], [place], [address], 08/24/2024 10:08:44 08/23/19 25 08/24/2024 CBC (INCL UDES DIFF/ PLT) monocytes 11.2 % normal Not Available [facility] [place] [facility] [address], [place], [address], 08/24/2024 10:08:44 08/23/19 25 08/24/2024 CBC (INCL UDES DIFF/ PLT) eosinophils 1.1 % normal Not Available [facility] [place] [facility] [address], [place], [address], 08/24/2024 10:08:44 08/23/19 25 08/24/2024 CBC (INCL UDES DIFF/ PLT) basophils 0.6 % normal Not Available [facility] [place] [facility] [address], [place], [address], 08/24/2024 10:08:44 08/23/19 25 08/24/2024 TSH W/REF ASAEL TO FT4 TSH w/reflex to FT4 1.43 mIU/L normal Refer ence Range > or = 20 Years 0.40- 4.50 Pregn ginger Range s First trime ster 0.26- 2.66 Secon d trime ster 0.55- 2.73 Third trime ster 0.43- 2.91 Not Available [facility] [address], [place], [address], 08/24/2024 10:08:44 08/23/19 25 08/23/2024 urina lysis , dipst ick Glucose Negati ve Not Available [facility] [address] [facility], [place], [address], 08/23/2024 08:46:18 08/23/19 25 08/23/2024 urina lysis , dipst ick Appearance Clear Not Available [facility] [address] [facility], [place], [address], 08/23/2024 08:46:18 08/23/19 25 08/23/2024 urina lysis , dipst ick Color Yellow Not Available [facility] [address] [facility], [place], [address], 08/23/2024 08:46:18 08/23/19 25 08/23/2024 urina lysis , dipst ick Leukocytes Negati ve Not Available [facility] [address] [facility], [place], [address], 08/23/2024 08:46:18 08/23/19 25 08/23/2024 urina lysis , dipst ick Nitrate Negati ve Not Available [facility] [address] [facility], [place], [address], 08/23/2024 08:46:18 08/23/19 25 08/23/2024 urina lysis , dipst ick Urobilinogen Negati ve Not Available [facility] [address] [facility], [place], [address], 08/23/2024 08:46:18 08/23/19 25 08/23/2024 urina lysis , dipst ick Protein Negati ve Not Available [facility] [address] [facility], [place], [address], 08/23/2024 08:46:18 08/23/19 25 08/23/2024 urina lysis , dipst ick pH 7.5 Not Available [facility] [address], [place], [address], 08/23/2024 08:46:18 08/23/19 25 08/23/2024 urina lysis , dipst ick Blood 1+ Not Available [facility] [address], [place], [address], 08/23/2024 08:46:18 08/23/19 25 08/23/2024 urina lysis , dipst ick Specific Marmaduke 1.005 Not Available [facility] [address] [facility] [address], [place], [address], 08/23/2024 08:46:18 08/23/19 25 08/23/2024 urina lysis , dipst ick Ketone Negati ve Not Available [facility] [address] [facility], [place], [address], 08/23/2024 08:46:18 08/23/19 25 08/23/2024 urina lysis , dipst ick Bilirubin Negati ve Not Available [facility] [address] [facility], [place], [address], 08/23/2024 08:46:18 09/11/19 24 09/09/2023 vascu cj gutiérrezi demar n (PROC ) No observ ation record ed. [email or web address] Not Available 01/2024 10:28:50 05/28/20 24 05/27/2024 alfonzo lr, [facility] No observ ation record ed. [email or web address] [facility] [address] [address], [place], [address], 05/28/2024 08:35:39 08/27/19 25 08/26/2024 vascu lar exami natio n (PROC ) No observ ation record ed. [email or web address] [facility] [address] [address], [place], [address], 08/27/2024 08:35:44 Result Notes None recorded. Problems Name Problem SNOMED Code Status Onset Date Resolution Date Notes Provider Name and Address Organization Details Recorded Time Active immunizat ion Active Problem Code: Z23; Problem Code Type: ICD-10; Not Available [facility] 3 03:44:26 Adult health examinati on Active Problem Code: Z00.00; Problem Code Type: ICD-10; Aleksandra Steinberg APRN [address], [place], [address] , [facility] 4 08:40:29 Body mass index 30+ - obesity 967864715 Active Problem Code: Z68.33; Problem Code Type: ICD-10; Not Available [facility] 3 03:44:26 Basal cell carcinoma of skin 953564007 Active Problem Code: C44.91; Problem Code Type: ICD-10; [address], [place], [address] , [facility] 4 08:50:12 Hyperlipi demia 27652938 Active Problem Code: E78.5; Problem Code Type: ICD-10; [address], [place], [address] , [facility] 4 08:40:33 Menorrhag ia 367029390 Active [address], [place], [address] , [facility] 4 08:49:32 Pain due to varicose veins of lower extremity 528144734 Active [address], [place], [address] , [facility] 4 09:09:01 Group A Streptoco ccus not isolated 303770463 Active 2023 vaginally Aleksandra Steinberg APRN [address], [place], [address] , [employer] 4 09:17:38 Problem Notes None recorded. Procedures Surgical History Date Name Laterality Status Provider Name and Address Organization Details Recorded Time 2024 EGFPDietAdvice Z713 completed Aleksandra Steinberg APRN [address], [place], [address] , [facility] 5 09:15:09 2024 EGFPCervicalCancerScreen Z124 completed Aleksandra Steinberg APRN [address], [place], [address] , [facility] 5 08:55:59 2023 EGFPCervicalCancerScreen Z124 completed Aleksandra Steinberg APRN [address], [place], [address] , [facility] 4 08:52:22 2023 Date of Last Pap Smear completed Aleksandra Steinberg APRN [address], [place], [address] , [facility] 5 08:56:09 Imaging Results Imaging Date Name Status LastModified by Organiz ation Details LastModified Time 09/09/2023 vascular examination (PROC) completed [email or web address] Information not available 09/11/2023 10:28:50 05/27/2024 venous mapping, lower extremity completed [email or web address] [facility] [address], [address], 05/28/2024 08:35:39 08/26/2024 vascular examination (PROC) completed [email or web address] [facility] [address] [facility], [place], [address], 08/27/2024 08:35:44 Procedure Notes None recorded. Medical [...] Details Last Updated DateTime 4 171.45 cm 03976.9 8 g 99 % 99 % 73 /min 120 mm[Hg] 88 mm[Hg] Janine Doll [facility] 4 08:37:15 Date Recorded Body mass index (BMI) Provider Name and Address Organization Details Last Updated DateTime 08/15/2023 33.5 kg/m2 Aleksandra Steinberg APRN [address] [facility], [place], [address], [facility] 08/15/2023 08:56:17 Date Recorded Body height Body mass index (BMI) Body weight Body temperature Oxygen saturation Oxygen saturation in Arterial blood by Pulse oximetry Heart rate Systolic blood pressure Diastolic blood pressure Provider Name and Address Organization Details Last Updated DateTime 4 171.45 cm 34.4 kg/m2 720577. 1 g 97.4 [degF] 97 % 97 % 68 /min 114 mm[Hg] 86 mm[Hg] Amelia Londono [facility] 4 11:43:24 Date Recorded Body height Body mass index (BMI) Body weight Oxygen saturation Oxygen saturation in Arterial blood by Pulse oximetry Heart rate Body temperature Systolic blood pressure Diastolic blood pressure Provider Name and Address Organization Details Last Updated DateTime 171.45 cm 33.2 kg/m2 14520.4 6 g 99 % 99 % 72 /min 97.8 [degF] 116 mm[Hg] 91 mm[Hg] Araceli Marroquindeb [facility] 08:37:33 Social History Question Answer Notes LastModified by Organization Details LastModified Time Tobacco Smoking Status Never Smoker Not Available [facility] 03/24/2023 12:28:04 Do You Have An [...] Or The Highest Degree You Have Received? 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 No Information not available 08/23/2024 What Is The Fluoride Status Of Your Home? Non-fluoridated Information not available 08/23/2024 Are There Any Guns Present In Your Home? No Information not available 08/23/2024 Which Of Your Hands Is Dominant? Right Information not available 08/23/2024 [facility] 08/23/2024 Do You Have A Medical Power Of Optical Assistant? No Information not available 08/23/2024 What Was [...] Anxious, Or Unable To Sleep At Night)? [id number] Information not available 08/23/2024 Do You Use [...] Mother : Alive Hypothyroid Paternal Grandfather: [place], [place] age 57 Paternal Grandmother: htn Maternal Grandfather: [...] virus, quadrivalent, PF 2 completed Not Available [facility] 04/14/2023 06:54:15 Tdap 8 completed Not Available [facility] 04/14/2023 06:54:15 Influenza, recombinant, quadrivalent, PF 2 completed Not Available [facility] 04/14/2023 06:54:15 Influenza, split virus, trivalent, preservative 2 completed Not Available [facility] 04/14/2023 06:54:15 COVID-19, mRNA, LNP-S, PF, 30 mcg/0.3 mL dose 1 completed Aleksandra Steinberg APRN [address] [facility], [place], [address], [place] [facility] 08/23/2024 08:49:12 COVID-19, mRNA, LNP-S, PF, 30 mcg/0.3 mL dose 1 completed Aleksandra Steinberg APRN [address] [place], [address], [place] [facility] 08/23/2024 08:49:13 Past Encounters Encounter ID Performer Location Encounter Start Date Encounter Closed Date Diagnosis/Indication Diagnosis SNOMED-CT Code Diagnosis ICD10 Code Diagnosis Note [id number] Aleksandra Steinberg APRN [facility] [address] [place] [address] 08/15/2023 08:12:49 08/15/2023 09:13:47 Adult health examination 418852513 Z00.00 I have reviewed, and updated patient's past medical, surgical, family, and social historyMos t recent dental eye and specialist examsCouns eled about the following: -healthy lifestyle- stress management -exercise 100-150min /week-Limi ting alcohol intake-Dys lipidemia screening- Cervical cancer screening- Age appropriat e immunizati ons Menorrhagia 534849660 N9 2.0 Continue to follow with [facility]. Will check iron panel. Pain due t o varicose veins of lower extremity 153045445 I83.819 Will refer to vascular for further treatment [id number] Michelle Garces MD [facility] [address] [place] [address] 10/07/2023 11:23:56 10/07/2023 12:50:49 Subjective pulsatile tinnitus of right ear 0704670614 593656 H93.A1 concern is that it is unilateral and pulsatile in nature. Will refer her urgently to ear nose and throat doctor. A call was placed to see if I could get her in today as she took the day off. Will also prescribe lorazepam to try to help her with sleep at night. [id number] Aleksandra Steinberg APRN [facility] [address] [place] [address] 08/23/2024 08:26:12 08/23/2024 09:15:26 Adult health examination 966077441 Z00.00 I have reviewed, and updated patient's past medical, surgical, family, and social historyMos t recent dental eye and specialist examsCouns eled about the following: -healthy lifestyle- stress management -exercise 100-150min /week-[place] alcohol intake-Dys lipidemia screening- Cervical cancer screening- Age appropriat e immunizati ons Menorrhagia 234524455 N9 2.0 Continue to follow with [facility]. Will check iron panel. Body mass index 30+ - obesity 113878943 Z68.33 Cont healthy diet, portion control. Is [...] Member ID Guarantor Name 08/15/2023 1 [place] [facility] [employer] - [facility] [employer] [facility] [employer] [place] [id number] Danae B [place] 10/07/2023 1 [place] [facility] [employer] - [facility] [employer] [facility] [employer] [place] [id number] Danae B [place] 08/23/2024 1 [place] [facility] [employer] - [facility] [employer] [address] [employer] [place] [id number] [facility] Notes Date Note Type Note Provider Name and Address Organization Details Recorded Time 08/15/2023 text/html Patient presents for E. She is fasting for blood work. She has a few health updates? o margareth the last few months she has had 2 vaginal infections which were actually positive for group A strep. She did see infectious disease and is now on a 30-day course of penicillin to 50 mg twice daily which she is finishing up. 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 She is up-to-date with seeing her manager business systems annually. Does have a history of basal cell. Aleksandra Steinberg APRN [address], [place], [address], [facility] 08/15/2023 09:11:43 10/07/2023 text/html 33 yo woman [...] Michelle Garces MD [address], [place], [address], [facility] 10/07/2023 13:01:10 08/23/2024 text/html Patient presents for YPE. She is fasting for blood work. She is up-to-date with seeing her manager business systems and director clinical data annually. Does have a history of basal cell.Health updates: had venous ablations last year- significant improvement in leg pain.Still with heavy mensesWork is going wellEats very healthy, sleeping well, managing stress well. Aleksandra Steinberg APRN [address], [place], [address], [facility] 08/23/2024 09:17:24 OBGyn Episode No OBEpisode recorded.
--- OUTSIDE RECORDS SUMMARY | 2024-10-15 14:57 | XMS_ITS | Continuity of Care Document ---
Author Organization [facility] Address [address] [place] [address] Phone Care Team Providers Care Oil Fire Specialist Name Role Phone Idris DHILLON, RVT, RPVI, Parker Unavailable U navailable Allergies, Adverse Reactions, Alerts Substance Reaction Status Criticality No Known Allergies Active No Inform ation Procedures Procedure Date Office/Outpt E&M Established 15 Mins- CT & [place] Duplex Scan-extrem Veins; Comp- CT & [place] Duplex Scan-extrem Veins; Uni/ CT & [place] J Ultrason Guidan Needle Bx-rad- CT & [place] J Inj Sclerosing Solution; Sngl- CT & [place] J Duplex Scan-extrem Veins; Uni/ CT & [place] D Endovenous Rf, 1st Vein- CT & [place] 2023 Ultrason Guidan Needle Bx-rad- CT & [place] D Inj Sclerosing Solution; Sngl- CT & [place] D Duplex Scan-extrem Veins; Uni/ CT & [place] D Endovenous Rf, 1st Vein- [place] & [place] 2023 Ultrason Guidan Needle Bx-rad- CT & [place] D Inj Sclerosing Solution; Sngl- CT & [place] D ec-16-2024 Office/Oupt E&M New Pt 30 Mins- CT & [place] Duplex Scan-extrem Veins; Comp- CT & [place] Advance Directives Directive Yes / No Effective Date File Name No Information Encounters Encounter Description Practice Location Reason(s) For Visit Diagnoses Date Provider Providers Copied on Encounter Office/Outpt E&M Established 15 Mins- [place] & [place] [facility], [address] [place] [address] Dr Cifuentes [address] [place], [id number], [place] tel:[phone] [facility] - [facility] Lymphedema, not elsewhere classifiedHere ditary lymphedemaVeno us insufficiency (chronic) (peripheral)Ti saige campbell 5 Idris DHILLON RVT, AMITA Canales. [address] [place] [address], Mayi [place], [id number], [place]. tel:[phone] Referring Provider: Elodia Lopez, [address] [place] [address], [facility]. tel:[phone] [facility], [address] [place] [address] Dr Cifuentes [address] [place]ada[place], [id number], [place] tel:[phone] [facility] Chronic venous hypertension (idiopathic) with other complications of bilateral lower extremity 5 Idirs DHILLON RVT, AMITA Canales. [address] [place] [address], [place], [id number], [place]. tel:[phone] Referring Provider: Elodia Lopez, [address] [place] [address], [id number]. tel:[phone] [facility], [address] [place] [address] Dr Cifuentes [address] [place] Valladares [place], [id number], [place] tel:[phone] [facility] - [facility] Encounter for follow-up examination after completed treatment for conditions other than malignant neoplasmPain in left leg 5 Idris DHILLON RVT, AMITA Canales. [address] [place] [address], Mayi whalen [place], [id number], [place]. tel:[phone] Referring Provider: Elodia Lopez, [address] [place] [address], [address]. tel:[phone] [facility] MD VICTOR, [address] [place] [address] Dr Cifuentes [address] [place] Valladares [place], [id number], [place] tel:[phone] [facility] [place] [facility] [place] Varicose veins of left lower extremity with other complications 5 Idris DHILLON RVT, AMITA Canales. [address] [place] [address], [facility] [place] [place], [id number], [place]. tel:[phone] Referring Provider: Elodia Lopez, [address] [place] [address], [address]. tel:[phone] [facility] MD VICTOR, [address] [place] [address] Dr Cifuentes [address] Scar Valladares [place], [id number], [place] tel:[phone] [facility] [place] Encounter for follow-up examination after completed treatment for conditions other than malignant neoplasmPain in left leg 4 Majo Rodriguez. [address], [address], [place], [place], [id number], [place]. tel:[phone] Referring Provider: Elodia Lopez, [address] [place] [address], [address]. tel:[phone] [facility] MD VICTOR, [address] [place] [address] Dr Cifuentes [address] Scar Valladares [place], [id number], [place] tel:[phone] [facility] [place] Varicose veins of left lower extremity with other complications 4 Idris DHILLON RVT, RPVI Robert. [address] [place] [address], [facility] [place] [place], [id number], [place]. tel:[phone] Referring Provider: Elodia Lopez, [address] [place] [address], [address]. tel:[phone] [facility] MD VICTOR, [address] [place] [address] Dr Cifuentes [address] 1000Scar [place], [id number], [place] tel:[phone] [facility] Encounter for follow-up examination after completed treatment for conditions other than malignant neoplasmChroni c venous hypertension (idiopathic) with other complications of right lower extremity Jun- 4 Idris DHILLON RVT, RPVI Robert. [address] [address], [facility] [place], [id number], [place]. tel:[phone] Referring Provider: Elodia Lopez, [address] [place] [address], [facility]. tel:[phone] [facility], [address] [place] [address] Dr Cifuentes 1000SuScar mitchell [place], [id number], [place] tel:[phone] [facility] Chronic venous hypertension (idiopathic) with inflammation of right lower extremity 4 Idris DHILLON RVT, RPVI Robert. [address] [place] [address], [facility] [place], [id number], [place]. tel:[phone] Referring Provider: Elodia Lopez, [address] [place] [address], [facility]. tel:[phone] [facility], [address] [place] [address] Dr Cifuentes 1000SuScar mitchell [place], [id number], [place] tel:[phone] [facility] No Information 4 Idris DHILLON RVT, RPVI Robert. [facility] [address], [facility] [place] [place], [id number], [place]. tel:[phone] Office/Oupt E&M New Pt 30 Mins- [place] & [place] [facility], [address] [place] [address] Dr Cifuentes 1000SuScar mitchell [place], [id number], [place] tel:[phone] [facility] Chronic venous hypertension (idiopathic) with other complications of bilateral lower extremityRestl ess legs syndromeLymphe vinicio, not elsewhere classifiedHere ditary lymphedemaCram p and spasmLocalized edema 4 Idris DHILLON RVT, RPVI Robert. [address] [facility], [address], [facility] [place] [place], [id number], [place]. tel:[phone] [facility], [address], [place], [id number], tel:[phone] [facility] [place] [facility] [place] Chronic venous hypertension (idiopathic) with other complications of bilateral lower extremity Martinez Steinberg MD, RVT, RPVI Robert. [address] [facility], [address], [place], [id number], [place]. tel:[phone] Referring Provider: Parker Steinberg MD, RVT, AMITA, [address] [address], [place], [address] . tel:[phone] Family History Family Member Type Diagnosis Age At Onset No Information Payers Payer name Insurance type Covered green party ID Authoriza paulie(s) [facility] [id number] Social History Type Description Quantity Date Captured Comments Alcohol Use Details Unknown Caffeine Use Details Unknown Tobacco Use Status Current non-smoker Smoking Status Never Smoker Non-Smoking Tobacco Use Details : No Details Available : No Details Available Sex Female Vital Signs Date / Time: Height Weight BMI Pulse Rate Blood Pressure Temperature Respiratory Rate Body Surface Area Head Circumference Head Circ. Percentile Wt./Kavin. Percentile BMI percentile Pulse Ox Inhaled Ox 95.250 kg (210.00 lbs) 32.0 5 kg/m eter (2) 126/74 mm[Hg] Chief Complaint And Reason For Visit No Information Reason For Referral Reason For Referral No Information Plan Of Treatment Date Type Action Status Goal Diet education completed Goal Diet education completed Referral Ordered: Weight management: Referral to physician timeframe: 3 Months (related to Body mass index (BMI) 32.0-32.9, adult) ordered Referral Ordered: Weight management: Referral to physician timeframe: 3 Months (related to Body mass index (BMI) 32.0-32.9, adult) ordered History Of Present Illness Encounter Date Complaint History Of Prese nt Illness No Information Functional Status Date Functional Assessmen t No Information Instructions Date Instruction Additional Infor preciousion Diet education Related to Body mass index (BMI) 32.0-32.9, adult Giving Encouragement to exercise Related to Body mass index (BMI) 32.0-32.9, adult Lifestyle education Related to B migdalia mass index (BMI) 32.0-32.9, adult Patient education booklet given Related to Venous insufficiency (chronic) (peripheral) Compression stocking usage as conservative measure Related to Venous insufficiency (chronic) (peripheral) Diet education Related to Body mass index (BMI) 32.0-32.9, adult Giving Encouragement to exercise Related to Body mass index (BMI) 32.0-32.9, adult Lifestyle education Related to B migdalia mass index (BMI) 32.0-32.9, adult Patient education booklet given Related to Chronic venous hypertension (idiopathic) with other complications of bilateral lower extremity Pre and post instruc tions reviewed and provided Related to Chronic venous hypertension (idiopathic) with other complications of bilateral lower extremity Assessments Type Assessment Date No Information Patient Care Teams Name Effective Dates (start - stop) Status Members No Information
--- OUTSIDE RECORDS SUMMARY | 2024-10-15 14:57 | XMS_ITS | Encounter Summary ---
Author Organization [facility] Address [address] [place] [address] Care Team Providers Care Donor Relations Coordinator Name Role Phone Elodia Steinberg MABEL Primary Care Provider Encounter Details Date Type Department Care Team (Latest Contact Info) Description [facility] [place] [address] [address] [place] [address] Jayce Morales MD [address] [place] [address] Encounter for laboratory testing for COVID-19 virus [...] Detected Not Detected 10/13/2020 6:24 PM EDT [facility] Comment: Negative results do not [...] was completed and performance characteristics established by [facility] as per the FDA and CLIA requirement for this EUA. The Aptima SARS-CoV-2 assay Letter of Authorization, along with the authorized Fact Sheet for Healthcare Providers, the authorized Fact Sheet for Patients, and authorized labeling are available on the FDA website: https://www.fda.gov/medical-devices/zzufgqlde-sxgvoxrpzt-usudqeo-devices/emergen - n-ootrtqehcdjvkk-izvwtyh-devices. Performed at [facility], [place], [place] ??[place] License [id number] ??CLIA [id number] Source Nasopharyngeal 10/13/2020 6:24 PM EDT [facility] Comment:Performed at [facility], [facility], [place] license No. [id number] CLIA No. [id number] Microbiology Nasopharyngeal swab / Unknown 10/13/2020 2:15 PM EDT 10/13/2020 2:15 PM EDT Jayce Morales MD MICROBIOLOGY - GENER AL ORDERABLES [facility] [address] [place] [address] documented in this encounter Visit Diagnoses Diagnosis Encounter for laboratory testing for COVID-19 virus documented in this encounter Care Teams Donor Relations Coordinator Relationship Specialty Start Date End Date Elodia Steinberg APRN PCP - General Family Medicine 06/20/20 documented as of this encounter
== END 2024-10-15 14:42 | disposition home or self-care (01) ==
LOC: HO.US 14:41
PROVIDERS: Visit Provider Obstetrics & Gynecology
DX: N93.9 Abnormal uterine and vaginal bleeding, unspecified (principal)
CPT/HCPCS: 76830; 76856

== ENCOUNTER → 2024-10-15 14:43 | Outpatient (BNV) | payer BC, SELFPAY | PROVIDERS: Visit Provider Radiology Diagnostic Radiology | DX: N93.9 Abnormal uterine and vaginal bleeding, unspecified (principal) | CPT/HCPCS: 76830; 76856 ==

== ENCOUNTER 2024-10-20 15:37 | Outpatient (REF) | payer BC, SELFPAY ==
--- OUTSIDE RECORDS SUMMARY | 2024-10-20 18:25 | XMS_ITS | Clinical Summary ---
Author Organization [facility] Address [address] [place] [address] Care Team Providers Care Sodder Name Role Phone Idris Elodia [employer] Primary Care Provider [phone] Social History Tobacco Use Types Packs/Day Years [...] age to complete this topic Care Teams Sodder Relationship Specialty Start Date End Date Elodia Steinberg NP [address] [place] [address] PCP - General 05/13/22
--- OUTSIDE RECORDS SUMMARY | 2024-10-20 18:25 | XMS_ITS | Continuity of Care Document ---
Author Organization [facility] Address [address] [facility] [address] [place] [address] Phone Care Team Providers Care Quality And Reliability Engineer Name Role Phone Jet DHILLON, Marlon Unavailable Unavailable Procedures Procedure Date 18-30 mmHg Thigh length gradient meghan becca stocking Office/Oupt E&M New Pt 45 Mins 24 Duplex Scan-extrem Veins; Comp 24 Advance Directives Directive Yes / No Effective Date File Name No Information Encounters Encounter Description Practice Location Reason(s) For Visit Diagnoses Date Provider Providers Copied on Encounter [facility], [address], [id number], [place] tel:[phone] [facility] Varicose veins of bilateral lower extremities with other complications 4 Jet Mason. [address] [place], [address], [place]. tel:[phone] Referring Provider: Elodia Lopez, [address] [place], [address]. tel:[phone] Office/Oupt E&M New Pt 45 Mins [facility], [address] [place] [address] 241, [place], [place], [id number], [place] tel:[phone] [place] Varicose veins of bilateral lower extremities with other complicationsRes tless legs syndromeVenous insufficiency (chronic) (peripheral)Cram p and spasmLocalized edema 4 Jet Mason. [address] [place], [address], [place]. tel:[phone] Referring Provider: Elodia Lopez, [address] [place] [address], [address]. tel:[phone] [facility], [address] [place] [address], [id number], [place] tel:[phone] [place] - [place] Chronic venous hypertension (idiopathic) with other complications of bilateral lower extremity 4 Oliver Guzman. [address] [place] [address], [address], [place], [id number] , [place]. tel: [phone] Referring Provider: Elodia Lopez, [address] [place] [address], [address]. tel:[phone] Family History Family Member Type Diagnosis Age [...]
--- OUTSIDE RECORDS SUMMARY | 2024-10-20 18:25 | XMS_ITS | Encounter Summary ---
Author Organization [facility] Address [address] [place] [address] Care Team Providers Care Sweatband Decorating Machine Operator Name Role Phone Elodia Steinberg MABEL Primary Care Provider Encounter Details Date Type Department Care Team (Latest Contact Info) Description 10/13/2020 Lab Requisition [facility] COVID Drive Through [address] [place] [address] [address] [place] [address] Jayce Morales MD 80 [place] [address] Encounter for laboratory testing for COVID-19 virus [...] Detected 10/13/2020 6:24 PM EDT [facility] Comment: Negative results do [...] labeling are available on the FDA website: https://www.fda.gov/medical-devices/hlalypigb-aivhmesyds-buyowtb-devices/emergen - q-ammlrvgivbafyn-qwqvsvo-devices. Performed at [facility], [place], [place] ??CT License 0385 ??CLIA [id number] Source Nasopharyngeal 10/13/2020 6:24 PM EDT [facility] Comment:Performed at [facility], [facility], [place] license No. [id number] CLIA No. [id number] Microbiology Nasopharyngeal swab / Unknown 10/13/2020 2:15 PM EDT 10/13/2020 2:15 PM EDT us Jayce Morales MD MICROBIOLOGY - GENERAL ORDER NATANAEL Final Result [facility] [address] [place] [address] documented in this encounter Visit Diagnoses Diagnosis Encounter for laboratory testing for COVID-19 virus documented in this encounter Care Teams Sweatband Decorating Machine Operator Relationship Specialty Start Date End Date Elodia Steinberg APRN PCP - General Family Medicine 06/20/20 documented as of this encounter
--- OUTSIDE RECORDS SUMMARY | 2024-10-20 18:25 | XMS_ITS | Clinical Summary ---
Author Organization [facility] Address [address] [place] [address] Care Team Providers Care Middle School Coach Name Role Phone Elodia Steinberg APRN Primary Care Provider [phone] Allergies No known active allergies Medications No [...] age to complete this topic Care Teams Middle School Coach Relationship Specialty Start Date End Date Elodia Steinberg, MABEL [address] [facility] [place] [address] PCP - General Family Medicine 05/13/22
--- OUTSIDE RECORDS SUMMARY | 2024-10-20 18:25 | XMS_ITS | Encounter Summary ---
Author Organization [facility] Address [address] [place] [address] Care Team Providers Care Technical Product Manager Name Role Phone Elodia Steinberg MABEL Primary Care Provider Encounter Details Date Type Department Care Team (Latest Contact Info) Description 09/08/2020 Lab Requisition [facility] COVID Drive Through [address] [place] [address] [address] [place] [address] Jayce Morales MD 80 [place] [address] Encounter for laboratory testing for COVID-19 virus [...] Roel Solorzano, Ph.D., Laboratory DirectorTests performed at [facility] Nasopharyngeal swab / Unknown 09/08/2020 2:54 PM EST 09/08/2020 2:54 PM EST Narrative [facility] LIRAALESS[facility] - 09/09/2020 2:17 PM EST Performed by [facility] [address] [place] [address], CLIA# [id number] and [place] License# [id number] us Jayce Morales MD MICROBIOLOGY - GENERAL ORDER NATANAEL Final Result JONATHAN CORTEZ documented in this encounter Visit Diagnoses Diagnosis Encounter for laboratory testing for COVID-19 virus documented in this encounter Care Teams Technical Product Manager Relationship Specialty Start Date End Date Elodia Steinberg APRN PCP - General Family Medicine 06/20/20 documented as of this encounter
--- OUTSIDE RECORDS SUMMARY | 2024-10-20 18:25 | XMS_ITS | Encounter Summary ---
Author Organization [facility] Address [address] [place] [address] Care Team Providers Care Staff Sonographer Name Role Phone Elodia Steinberg MABEL Primary Care Provider Encounter Details Date Type Department Care Team (Latest Contact Info) Description 09/22/2020 Lab Requisition [facility] COVID Drive Through [address] [place] [address] [address] [place] [address] Jayce Morales MD [address] [place] [address] Encounter for laboratory testing for COVID-19 virus [...] Luan Haji, Ph.D., Laboratory DirectorTests performed at [facility] Nasopharyngeal swab / Unknown 09/22/2020 1:53 PM EDT 09/22/2020 1:53 PM EDT Narrative JONATHAN CORTEZ - 09/23/2020 1:11 PM EDT Performed by [facility] [address] [place] [address], CLIA# [id number] and [place] License# [id number] us Jayce Morales MD MICROBIOLOGY - GENERAL ORDER NATANAEL Final Result JONATHAN CORTEZ documented in this encounter Visit Diagnoses Diagnosis Encounter for laboratory testing for COVID-19 virus documented in this encounter Care Teams Staff Sonographer Relationship Specialty Start Date End Date Elodia Steinberg APRN PCP - General Family Medicine 06/20/20 documented as of this encounter
--- OUTSIDE RECORDS SUMMARY | 2024-10-20 18:25 | XMS_ITS | Encounter Summary ---
Author Organization [facility] Address [address] [place] [address] Care Team Providers Care Business And Financial Counsel Name Role Phone Elodia Steinberg MABEL Primary Care Provider Encounter Details Date Type Department Care Team (Latest Contact Info) Description 09/01/2020 Lab Requisition [facility] COVID Drive Through [address] [place] [address] [address] [place] [address] Jayce Morales MD 80 [place] [address] Encounter for laboratory testing for COVID-19 virus [...] Roel Solorzano, Ph.D., Laboratory DirectorTests performed at [facility] Nasopharyngeal swab / Unknown 09/01/2020 2:23 PM EST 09/01/2020 2:23 PM EST N[facility]ative [facility] Philip LIRAALESSIA - 09/02/2020 3:10 PM EST Performed by [facility] [address] [place] [address], CLIA# [id number] and [place] License# [id number] us Jayce Morales MD MICROBIOLOGY - GENERAL ORDER NATANAEL Final Result JONATHAN CORTEZ documented in this encounter Visit Diagnoses Diagnosis Encounter for laboratory testing for COVID-19 virus documented in this encounter Care Teams Business And Financial Counsel Relationship Specialty Start Date End Date Elodia Steinberg APRN PCP - General Family Medicine 06/20/20 documented as of this encounter
--- OUTSIDE RECORDS SUMMARY | 2024-10-20 18:25 | XMS_ITS | Encounter Summary ---
Author Organization [facility] Address [address] [place] [address] Care Team Providers Care Employee Relations Assistant Name Role Phone Elodia Steinberg MABEL Primary Care Provider Encounter Details Date Type Department Care Team (Latest Contact Info) Description 10/06/2020 Lab Requisition [facility] COVID Drive Through [address] [place] [address] [address] [place] [address] Jayce Morales MD [address] [place] [address] Encounter for laboratory testing for COVID-19 virus [...] Detected Not Detected 10/06/2020 7:21 PM EDT [facility] Comment: Negative results do not [...] was completed and performance characteristics established by [facility] as per the FDA and CLIA requirement for this EUA. The Aptima SARS-CoV-2 assay Letter of Authorization, along with the authorized Fact Sheet for Healthcare Providers, the authorized Fact Sheet for Patients, and authorized labeling are available on the FDA website: https://www.fda.gov/medical-devices/ttpohqpxt-lvsnqsroin-zmypjjw-devices/emergen - s-jgibdlanvfxugb-fpfpekw-devices. Performed at [facility] [place] License 0385 ??CLIA [id number] Source Nasopharyngeal 10/06/2020 7:21 PM EDT [facility] Comment:Performed at [facility] [place] license No. [id number] CLIA No. [id number] Microbiology Nasopharyngeal swab / Unknown 10/06/2020 3:06 PM EDT 10/06/2020 3:06 PM EDT us Jayce Morales MD MICROBIOLOGY - GENERAL ORDER NATANAEL Final Result [facility] [address] [place] [address] documented in this encounter Visit Diagnoses Diagnosis Encounter for laboratory testing for COVID-19 virus documented in this encounter Care Teams Employee Relations Assistant Relationship Specialty Start Date End Date Elodia Steinberg APRN PCP - General Family Medicine 06/20/20 documented as of this encounter
--- OUTSIDE RECORDS SUMMARY | 2024-10-20 18:25 | XMS_ITS | Clinical Summary ---
Author Organization [facility] Address [address] [place] [address] Care Team Providers Care Transmission Operator Name Role Phone Idris Elodia Primary Care Provider [phone] Allergies No known active allergies Medications miSOPROStoL [...] high-risk Negative Negative 07/15/2023 3:02 PM EST [facility] Brushing Cervix uteri structure / Unknown Non-blood Collection / Unknown 07/14/2023 2:50 PM EST 07/14/2023 6:12 PM EST Narrative [facility] - 07/15/2023 3:02 PM EST Negative [...] LAB MICROBIOLOGY - GENERAL ORDERABLES Final Result [facility] [address] [place] [address], * Pap Test (07/14/2023 2:50 PM EST) Case Report Cytology ?Case: [id number] ? Authorizing Provider: ??Eve Davila MD ?Collected: ? 07/14/2023 1450 ? Ordering Location: ? [facility] Department of Received: ?07/15/2023 0817 ? Women's Health ? First Screen: ?Diya Benavides CT (ASCP) ? Specimen: ?Cytopathology, screening PAP test, Cervix ? 07/15/2023 3:02 PM EST [facility] LMP 07/06/2023 07/15/2023 3:02 PM EST [facility] Interpretation Negative for intraepithelial lesion or malignancy 07/15/2023 3:02 PM EST [facility] at 1502 EST Specimen Adequacy Satisfactory for evaluation, endocervical/verma sformation zone component present 07/15/2023 3:02 PM EST [facility] Specimen Processing Thin Prep pap with manual screen/rescreen or review 07/15/2023 3:02 PM EST [facility] Educational Note The Pap test is a screening test which carries an inherent false negative rate. These test results should be correlated with the patient's clinical findings and history. 07/15/2023 3:02 PM [facility] Embedded Images 3:02 PM [facility] High Risk HPV Nucleic Acid Detection Negative 07/15/2023 3:02 PM [facility] Comment: Negative results indicate HPV [...] Department of Pathology and Laboratory Medicine at [facility] Brushing Cervix uteri structure / Unknown Non-blood Collection / Unknown 07/14/2023 2:50 PM EST 07/15/2023 8:17 AM EST us Eve Davila MD LAB PATHOLOGY/CYTOLOGY ORD ERABLES Final Result [facility] [address] [place] [address], [place] [phone] from Last 3 Months or Most Recently Relevant to Health Maintenance Insurance [employer] Care Teams Transmission Operator Relationship Specialty Start Date End Date Elodia Steinberg [address] [place] [phone] PCP - General Family Medicine 05/02/23
--- OUTSIDE RECORDS SUMMARY | 2024-10-20 18:25 | XMS_ITS | Clinical Summary ---
Author Organization [facility] Address [address] [place] [address] Care Team Providers Care Civil Engineering Drafter Name Role Phone Elodia Steinberg APRN Primary [...] patient's age to complete this topic Insurance [employer] [facility] [employer] [facility] Care Teams Civil Engineering Drafter Relationship Specialty Start Date End Date Elodia Steinberg APRN PCP - General Family Medicine 06/20/20
--- OUTSIDE RECORDS SUMMARY | 2024-10-20 18:25 | XMS_ITS | Encounter Summary ---
Author Organization [facility] Address [address] [place] [address] Care Team Providers Care National Flatbed Truck Driver Name Role Phone IdrisElodia MABEL Primary Care Provider Encounter Details Date Type Department Care Team (Latest Contact Info) Description 06/20/2020 Lab Requisition [facility] COVID Drive Through [address] [place] [address] [address] [place] [address] Kip Bullock PA-C [address] [place] [address] Encounter for laboratory testing for COVID-19 virus [...] recommended.Final report signed by Jeronimo Tucker, Ph.D., [facility], Laboratory DirectorTests performed at [facility] Nasopharyngeal swab / Unknown 06/20/2020 2:39 PM EST 06/20/2020 2:39 PM EST Narrative JONATHAN CORTEZ - 06/21/2020 10:56 PM EST Performed by [facility] [address] [place] [address], CLIA# [id number] and [place] License# [id number] Kip Bullock PA-C MICROBIOLOGY - GENERAL OR DERABLES Final Result JONATHAN CORTEZ documented in this encounter Visit Diagnoses Diagnosis Encounter for laboratory testing for COVID-19 virus documented in this encounter Care Teams National Flatbed Truck Driver Relationship Specialty Start Date End Date Elodia Steinberg APRN PCP - General Family Medicine 06/20/20 documented as of this encounter
--- OUTSIDE RECORDS SUMMARY | 2024-10-20 18:25 | XMS_ITS | Continuity of Care Document ---
Author Organization [facility] Address [address] [place] [address] Phone Care Team Providers Care Cook Mess Name Role Phone Idris DHILLON, RVT, RPVI, [...] Mins- [place] & [place] [facility], [address] [place] [address] Dr Cifuentes [address]Suite [place] Vallada[place], [id number], [place] tel:[phone] [facility] Lymphedema, not elsewhere classifiedHere ditary lymphedemaVeno us insufficiency (chronic) (peripheral)Ti saige campbell 5 Idris DHILLON RVT, AMITA Canales. [address] [place] [address], Mayi whalen [place], [id number], [place]. tel:[phone] Referring Provider: Elodia Lopez, [address] [place] [address], [facility]. tel:[phone] [place] [facility], [address] [place] [address] Dr Cifuentes [address] [place] Valladares [place], [id number], [place] tel:[phone] [facility] Chronic venous hypertension (idiopathic) with other complications of bilateral lower extremity 5 Idris DHILLON RVT, AMITA Canales. [address] [place] [address], [place]ah wh[place], [id number], [place]. tel:[phone] Referring Provider: Elodia Lopez, [address] [place] [address], [address]. tel:[phone] [place] [facility], [address] [place] [address] Dr Cifuentes [address] [place] Valladares [place], [id number], [place] tel:[phone] [facility] - [facility] Encounter for follow-up examination after completed treatment for conditions other than malignant neoplasmPain in left leg 5 Idris DHILLON RVT, AMITA Canales. [address] [place] [address], Mayi whalen [place], [id number], [place]. tel:[phone] Referring Provider: Elodia Lopez, [address] [place] [address], [address]. tel:[phone] [facility] MD VICTOR, [address] [place] [address] Dr Cifuentes [address] Scar Valladares [place], [id number], [place] tel:[phone] [facility] [place] [facility] [place] Varicose veins of left lower extremity with other complications 5 Idris DHILLON RVT, AMITA Canales. [address] [place] [address], [facility] [place], [id number], [place]. tel:[phone] Referring Provider: Elodia Lpoez, [address] [place] [address], [address]. tel:[phone] [facility] MD VICTOR, [address] [place] [address] Dr Cifuentes [address] Scar Valladares [place], [id number], [place] tel:[phone] [facility] [place] [facility] [place] Encounter for follow-up examination after completed treatment for conditions other than malignant neoplasmPain in left leg 4 Majo Rodriguez. [address], [address], [place], [place], [id number], [place]. tel:[phone] Referring Provider: Elodia Lopez, [address] [place] [address], [address]. tel:[phone] [facility] MD VICTOR, [address] [place] [address] Dr Cifuentes [address] Scar Valladares [place], [id number], [place] tel:[phone] [facility] [place] [facility] [place] Varicose veins of left lower extremity with other complications 4 Idris DHILLON RVT, RPVI Robert. [address] [place] [address], [facility] [place] [place], [id number], [place]. tel:[phone] Referring Provider: Elodia Lopez, [address] [place] [address], [address]. tel:[phone] [facility] MD VICTOR, [address] [place] [address] Dr Cifuentes [address] 1000Scar [place], [id number], [place] tel:[phone] [facility] Encounter for follow-up examination after completed treatment for conditions other than malignant neoplasmChroni c venous hypertension (idiopathic) with other complications of right lower extremity Jun- 4 Idris DHILLON RVT, RPVI Robert. [address] [address], [facility] [place], [id number], [place]. tel:[phone] Referring Provider: Elodia Lopez, [address] [place] [address], [facility]. tel:[phone] [place] [facility], [address] [place] [address] Dr Cifuentes 1000SuScar mitchell [place], [id number], [place] tel:[phone] [facility] Chronic venous hypertension (idiopathic) with inflammation of right lower extremity 4 Idris DHILLON RVT, RPVI Robert. [address] [place] [address], [facility] [place], [id number], [place]. tel:[phone] Referring Provider: Elodia Lopez, [address] [place] [address], [facility]. tel:[phone] [place] [facility], [address] [place] [address] Dr Cifuentes 1000SuScar mitchell [place], [id number], [place] tel:[phone] [facility] No Information 4 Idris DHILLON RVT, RPVI Robert. [facility] [address], [facility] [place] [place], [id number], [place]. tel:[phone] Office/Oupt E&M New Pt 30 Mins- [place] & [place] [facility], [address] [place] [address] Dr Cifuentes 1000SuScar mitchell MD, [id number], [place] tel:[phone] [facility] Chronic venous hypertension (idiopathic) with other complications of bilateral lower extremityRestl ess legs syndromeLymphe vinicio, not elsewhere classifiedHere ditary lymphedemaCram p and spasmLocalized edema 4 Idris DHILLON RVT, RPVI Robert. [address], [facility] [place], [id number], [place]. tel:[phone] [facility], [address], [place], [id number], tel:[phone] [facility] [place] [facility] [place] Chronic venous hypertension (idiopathic) with other complications of bilateral lower extremity Martinez Steinberg MD, RVT, RPVI Robert. [address], [address], May[place]alen [place], [id number], [place]. tel:[phone] Referring Provider: Parker Steinberg MD, RVT, AMITA, [address] [address], [place], [address] . tel:[phone] Family History Family Member Type Diagnosis Age At Onset No Information Payers Payer name Insurance type Covered democrat ID Authoriza paulie(s) [facility] [id number] Social History Type Description Quantity Date Captured Comments Alcohol Use Details Unknown Caffeine Use Details Unknown Tobacco Use Status Current non-smoker Smoking Status Never Smoker Non-Smoking Tobacco Use Details : No Details Available : No Details Available Sex Female Vital Signs Date / Time: Height Weight BMI Pulse Rate Blood Pressure Temperature Respiratory Rate Body Surface Area Head Circumference Head Circ. Percentile Wt./Akvin. Percentile BMI percentile Pulse Ox Inhaled Ox [...]
--- OUTSIDE RECORDS SUMMARY | 2024-10-20 18:25 | XMS_ITS | Encounter Summary ---
Author Organization [facility] Address [address] [place] [address] Care Team Providers Care Credit Underwriter Name Role Phone Elodia Steinberg MABEL Primary Care Provider Encounter Details Date Type Department Care Team (Latest Contact Info) Description 09/14/2020 Lab Requisition [facility] COVID Drive Through [address] [place] [address] [address] [place] [address] Jayce Morales MD [address] [place] [address] Encounter for laboratory testing for COVID-19 virus [...] Roel Solorzano, Ph.D., Laboratory DirectorTests performed at [facility] Nasopharyngeal swab / Unknown 09/14/2020 12:08 PM EST 09/14/2020 12:09 PM EST Narrative JONATHAN CORTEZ - 09/15/2020 9:12 AM EST Performed by [facility] [address] [place] [address], CLIA# [id number] and [place] License# [id number] us Jayce Morales MD MICROBIOLOGY - GENERAL ORDER NATANAEL Final Result JONATHAN CORTEZ documented in this encounter Visit Diagnoses Diagnosis Encounter for laboratory testing for COVID-19 virus documented in this encounter Care Teams Credit Underwriter Relationship Specialty Start Date End Date Elodia Steinberg APRN PCP - General Family Medicine 06/20/20 documented as of this encounter"
--- OUTSIDE RECORDS SUMMARY | 2024-10-20 18:26 | XMS_ITS | Encounter Summary ---
Author Organization [facility] Address [address] [place] [address] Care Team Providers Care Biodiesel Technology Manager Name Role Phone Elodia Steinberg MABEL Primary Care Provider Encounter Details Date Type Department Care Team (Latest Contact Info) Description 07/27/2020 Lab Requisition [facility] COVID Drive Through [address] [place] [address] [address] [place] [address] Jayce Morales MD [address] [place] [address] Encounter for laboratory testing for COVID-19 virus [...] Roel Solorzano, Ph.D., Laboratory DirectorTests performed at [facility] Nasopharyngeal swab / Unknown 07/27/2020 3:20 PM EST 07/27/2020 3:20 PM EST [facility]ative [facility] 07/28/2020 10:15 PM EST Performed by [employer] [facility] [address] [place] [address], CLIA# [id number] and [place] License# [id number] us Jayce Morales MD MICROBIOLOGY - GENERAL ORDER NATANAEL Final Result JONATHAN CORTEZ documented in this encounter Visit Diagnoses Diagnosis Encounter for laboratory testing for COVID-19 virus documented in this encounter Care Teams Biodiesel Technology Manager Relationship Specialty Start Date End Date Elodia Steinberg APRN PCP - General Family Medicine 06/20/20 documented as of this encounter
--- OUTSIDE RECORDS SUMMARY | 2024-10-20 18:26 | XMS_ITS | Encounter Summary ---
Author Organization [facility] Address [address] [place] [address] Care Team Providers Care Pbx Inspector Name Role Phone Elodia Steinberg MABEL Primary Care Provider Encounter Details Date Type Department Care Team (Latest Contact Info) Description 08/25/2020 Lab Requisition [facility] COVID Drive Through [address] [place] [address] [address] [place] [address] Jayce Morales MD [address] [place] [address] Encounter for laboratory testing for COVID-19 virus [...] Roel Solorzano, Ph.D., Laboratory DirectorTests performed at [facility] Nasopharyngeal swab / Unknown 08/25/2020 1:01 PM EST 08/25/2020 1:02 PM EST [facility]ative [facility] 08/26/2020 3:32 PM EST Performed by [facility] [address] [place] [address], CLIA# [id number] and [place] License# [id number] us Jayce Morales MD MICROBIOLOGY - GENERAL ORDER NATANAEL Final Result JONATHAN CORTEZ documented in this encounter Visit Diagnoses Diagnosis Encounter for laboratory testing for COVID-19 virus documented in this encounter Care Teams Pbx Inspector Relationship Specialty Start Date End Date Elodia Steinberg APRN PCP - General Family Medicine 06/20/20 documented as of this encounter
--- OUTSIDE RECORDS SUMMARY | 2024-10-20 18:26 | XMS_ITS | Encounter Summary ---
Author Organization [facility] Address [address] [place] [address] Care Team Providers Care Breaker Table Worker Name Role Phone Elodia Steinberg MABEL Primary Care Provider Encounter Details Date Type Department Care Team (Latest Contact Info) Description 08/18/2020 Lab Requisition [facility] COVID Drive Through [address] [place] [address] [address] [place] [address] Jayce Morales MD 80 [place] [address] Encounter for laboratory testing for COVID-19 virus [...] Luan Haji, Ph.D., Laboratory DirectorTests performed at [facility] Nasopharyngeal swab / Unknown 08/18/2020 11:37 AM EST 08/18/2020 11:37 AM EST Narrative JONATHAN CORTEZ - 08/19/2020 3:35 PM EST Performed by [employer] [address] [place] [address], CLIA# [id number] and [place] License# [id number] us Jayce Morales MD MICROBIOLOGY - GENERAL ORDER NATANAEL Final Result JONATHAN CORTEZ documented in this encounter Visit Diagnoses Diagnosis Encounter for laboratory testing for COVID-19 virus documented in this encounter Care Teams Breaker Table Worker Relationship Specialty Start Date End Date Elodia Steinberg APRN PCP - General Family Medicine 06/20/20 documented as of this encounter
--- OUTSIDE RECORDS SUMMARY | 2024-10-20 18:26 | XMS_ITS | Encounter Summary ---
Author Organization [facility] Address [address] [place] [address] Care Team Providers Care Truck Driver Instructor Name Role Phone Elodia Steinberg MABEL Primary Care Provider Encounter Details Date Type Department Care Team (Latest Contact Info) Description 08/11/2020 Lab Requisition [facility] COVID Drive Through [address] [place] [address] [address] [place] [address] Jayce Morales MD [address] [place] [address] Encounter for laboratory testing for COVID-19 virus [...] Luan Haji, Ph.D., Laboratory DirectorTests performed at [facility] Nasopharyngeal swab / Unknown 08/11/2020 11:45 AM EST 08/11/2020 11:45 AM EST Narrative JONATHAN CORTEZ - 08/12/2020 11:15 AM EST Performed by [facility] [address] [place] [address], CLIA# [id number] and [place] License# [id number] us Jayce Morales MD MICROBIOLOGY - GENERAL ORDER NATANAEL Final Result JONATHAN CORTEZ documented in this encounter Visit Diagnoses Diagnosis Encounter for laboratory testing for COVID-19 virus documented in this encounter Care Teams Truck Driver Instructor Relationship Specialty Start Date End Date Elodia Steinberg APRN PCP - General Family Medicine 06/20/20 documented as of this encounter
--- OUTSIDE RECORDS SUMMARY | 2024-10-20 18:26 | XMS_ITS | Encounter Summary ---
Author Organization [facility] Address [address] [place] [address] Care Team Providers Care Coordinate Measuring Machine Operator Name Role Phone Elodia Steinberg MABEL Primary Care Provider Encounter Details Date Type Department Care Team (Latest Contact Info) Description 08/04/2020 Lab Requisition [facility] COVID [address] Through [address] [place] [address] [address] [place] [address] Jayce Morales MD [address] [place] [address] Encounter for laboratory testing for COVID-19 virus [...] Roel Solorzano, Ph.D., Laboratory DirectorTests performed at [facility] Nasopharyngeal swab / Unknown 08/04/2020 3:26 PM EST 08/04/2020 3:26 PM EST Narrative [facility] - 08/05/2020 3:32 PM EST Performed by [facility] [address] [place] [address], CLIA# [id number] and [place] License# [id number] us Jayce Morales MD MICROBIOLOGY - GENERAL ORDER N[place]EL Final Result JONATHAN CORTEZ documented in this encounter Visit Diagnoses Diagnosis Encounter for laboratory testing for COVID-19 virus documented in this encounter Care Teams Coordinate Measuring Machine Operator Relationship Specialty Start Date End Date Elodia Steinberg APRN PCP - General Family Medicine 06/20/20 documented as of this encounter
--- OUTSIDE RECORDS SUMMARY | 2024-10-20 18:26 | XMS_ITS | Encounter Summary ---
Author Organization [facility] Address [address] [place] [address] Care Team Providers Care Sponge Maker Name Role Phone IdrisElodia MABEL Primary Care Provider Encounter Details Date Type Department Care Team (Latest Contact Info) Description 07/14/2020 Lab Requisition [facility] COVID [address] Through [address] [place] [address] [address] [place] [address] Kip Bullock PA-C [address] [place] [address] Encounter for laboratory testing for COVID-19 virus [...] Luan Haji, Ph.D., Laboratory DirectorTests performed at [facility] Nasopharyngeal swab / Unknown 07/14/2020 11:25 AM EST 07/14/2020 11:25 AM EST Narrative JONATHAN CORTEZ - 07/15/2020 4:56 PM EST Performed by [facility] [address] [place] [address], CLIA# [id number] and [place] License# [id number] Kip Bullock PA-C MICROBIOLOGY - GENERAL OR DERABLES Final Result Performing Organization Address City/State/[facility] Co de Phone Number JONATHAN CORTEZ documented in this encounter Visit Diagnoses Diagnosis Encounter for laboratory testing for COVID-19 virus documented in this encounter Care Teams Sponge Maker Relationship Specialty Start Date End Date Elodia Steinberg APRN PCP - General Family Medicine 06/20/20 documented as of this encounter
--- OUTSIDE RECORDS SUMMARY | 2024-10-20 18:26 | XMS_ITS | Encounter Summary ---
Author Organization [facility] Address [address] [place] [address] Care Team Providers Care Hard Candy Spinner Name Role Phone IdrisElodia MABEL Primary Care Provider Encounter Details Date Type Department Care Team (Latest Contact Info) Description 07/20/2020 Lab Requisition [facility] COVID Drive Through [address] [place] [address] [address] [place] [address] Kip Bullock PA-C [address] [place] [id number] Encounter for laboratory testing for COVID-19 virus [...] Luan Haji, Ph.D., Laboratory DirectorTests performed at [facility] Nasopharyngeal swab / Unknown 07/20/2020 5:15 PM EST 07/20/2020 5:16 PM EST Narrative JONATHAN CORTEZ - 07/22/2020 9:44 AM EST Performed by [facility] [address] [place] [address], CLIA# [id number] and [place] License# [id number] Kip Bullock PA-C MICROBIOLOGY - GENERAL OR DERABLES Final Result Performing Organization Address City/State/[facility] Co de Phone Number JONATHAN CORTEZ documented in this encounter Visit Diagnoses Diagnosis Encounter for laboratory testing for COVID-19 virus documented in this encounter Care Teams Hard Candy Spinner Relationship Specialty Start Date End Date Elodia Steinberg APRN PCP - General Family Medicine 06/20/20 documented as of this encounter
[2024-10-21 11:02] LABS: CT PCR NOT DETECTED (Not Detect.); NG PCR NOT DETECTED (Not Detect.)
== END 2024-10-20 15:38 | disposition home or self-care (01) ==
LOC: HO.LNP 15:37
PROVIDERS: Visit Provider Obstetrics & Gynecology
DX: Z30.430 Encounter for insertion of intrauterine contraceptive device (principal); N93.9 Abnormal uterine and vaginal bleeding, unspecified
CPT/HCPCS: 58100; 58300; 81025; 87491; 87591; 88305; J7298

== ENCOUNTER 2024-10-20 15:37 | Outpatient (AMB) | payer BC, SELFPAY ==
--- NOTE | 2024-10-20 15:59 | A.OFFVIS_ITS ---
Vital Signs 10/20/24 16:06 Height 5 ft 7 in Weight 222 lb BMI 34.8 Intake Visit Reasons: u/s results, cotest /?EMB Sustainable Products Marketing Manager Required: No Information Interpreted: non-clinical & clinical Avionics Systems Engineer: Avionics Systems Engineer Present (Rachel MEIER) Accompanied by: Mother Allergies No Known Allergies Allergy (Verified 10/20/24 16:07) Is last menstrual period known: Yes Last menstrual period: 10/20/24 HPI Comments Details: Presenting for follow-up. Pelvic ultrasound done recently showed the following: LMP: September 2024 Anteverted uterus, normal size and echotexture, measuring 8.3 x 4.7 x 5.7 cm. Nabothian cysts. Well defined endometrium, measuring 14 mm in thickness. The right ovary measures, 4.0 x 1.7 x 2.4 cm. Normal sonographic appearance right ovary. The left ovary measures, 2.5 x 1.9 x 2.9 cm. Normal sonographic appearance left ovary. No adnexal masses or fluid collections. 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 hysteroscopy D&C) & the risks were discussed with the patient including but not limited: pain, uterine perforation, bleeding, infection, possible injury to bladder, bowel, ureter, possible need for blood transfusion with all its possible risks. The patient verbalized understanding all questions answered and signed consent. Urine test done in the office was negative The patient was placed into the dorsal lithotomy position; a speculum was inserted in the vagina. Using aseptic technique for the procedure, the cervix was cleansed with Betadine. The anterior lip of the cervix was grasped with a single tooth tenaculum. The uterus was sounded to 7 cm with a 4 mm Pipelle was used. Tissues samples were obtained and placed in formalin, in a patient labeled container and sent to the pathology department. At the end of the procedure, there was minimal bleeding noted The patient tolerated the procedure well and was discharged in good condition with the following instructions: Nothing in the vagina until the bleeding stops. No sex until the bleeding stops, to call if any of the following occurs: fever (>100.4), flu-like symptoms, abdominal pain, heavy bleeding, four smelling vaginal discharge. The patient was instructed to schedule a Follow up appointment in 2 weeks to discuss pathology results of the biopsy and treatment options. This note was generated with a voice recognition program. Some errors may have been overlooked during the review of this note. Sometimes these errors may affect the content or meaning of a given sentence. 54050-Tkhotumhctu Biopsy IUD Insert/Removal Details Details: The patient is interested in Mirena IUD insertion Urine test was done in the office and was negative; All the contraindications were excluded. The possible complications were discussed with the patient Alternative options were discussed with the patient including but not limited: control pills, cycle Medroxyprogesterone acetate, others The procedure was explained in detail to patient , at the end patient signed the informed consent obtained. A no touch technique was used throughout the procedure. A speculum was placed into vagina and cervix was cleaned with betadine). A tenaculum was placed. A plastic sound was advanced through the external and internal os until it reached the fundus of the uterus, the depth was 8 cm. The sound was then withdrawn. The IUD was loaded in a sterile manner and advanced into position. The string was visualized and cut to 3 cm. Tenaculum site hemostatic. All instruments removed from vagina. Patient tolerated the procedure well. NO complications were noted. Patient was instructed to call for fever over 100.4, significant pain unrelieved by Motrin, IUD expulsion, heavy bleeding, or abnormal discharge. Informed the patient that Mirena IUD is FDA approved for 5 years for the treatment of heavy menses Instructed the patient to schedule a Follow up appointment in 4 to 6 weeks following insertion. This note was generated with a voice recognition program. Some errors may have been overlooked during the review of this note. Sometimes these errors may affect the content or meaning of a given sentence. 27036-AYV Insertion Procedure code (CPT) selection complete Office Meds Mirena 21 mcg/24 hr (up to 8 years) 52 mg intrauterine device Performing Provider: Dewayne Moffett MD Performing Location: [facility] Documented (not given) by: Dewayne Moffett MD on 10/20/24 16:53 Dose Route Admin Location Dispensed Lot Number Expiration Date [facility] [employer] 1 device intrauterine ea Results AMB Test Urine AMB Test Urine Negative Last Edit by Rachel Garcia CMA on 16:07 AMB Test Urine AMB Test Urine Negative Last Edit by Rachel Garcia CMA on 16:19 Results Reviewed Results Reviewed: Laboratory Last Values [facility] Negative 10/20/24 16:18 Assessment & Plan Assessment & Plan (1) Abnormal uterine bleeding (AUB): Code(s): N93.9 - Abnormal uterine and vaginal bleeding, unspecified Category: Medical Plan: Discussed with the patient the results the ultrasound, no evidence of endometrial lesions. GC/CT collected, EMB to rule out endometrial pathology including endometrial hyperplasia and/or malignancy or polyp done, see procedure note Discussed with the patient the results of the options of treatment including control pills and Mirena IUD. All pros, cons, risks and benefits if each option was discussed with the patient given the fact that in case of evidence of endometrial polyp fragments , there will be an indication for hysteroscopy D&C polypectomy was IUD removal and reinsertion and association of long-term use of Mirena IUD is mild increase in breast cancer. The patient decided to go ahead with Mirena IUD. IUD inserted, see procedure All questions answered, the patient verbalized understanding Orders: Orders AMB HCG Urine Test Today Z32.02 - Encounter for test, result negative AMB Endometrial Biopsy Today N93.9 - Abnormal uterine and vaginal bleeding, unspecified AMB IUD Insertion/Removal - Practice Supplied Today N93.9 - Abnormal uterine and vaginal bleeding, unspecified AMB HCG Urine Test Today Z32.02 - Encounter for test, result negative Medications: New Mirena (levonorgestrel) 1 device intrauterine ONCE 1 ea 0RF AUB NS N93.9 - Abnormal uterine and vaginal bleeding, unspecified Coding Level of Care Code Est Pt Level 3 (48359) Procedure Only Diagnoses Abnormal uterine bleeding (AUB) N93.9 CPT Codes Endometrial Biopsy - CPT: 63550-Nnxphvphjpq Biopsy ([id number]) Details - CPT: 51498-TTS Insertion ([id number])
[2024-10-20 16:06] VITALS: BMI 34.8
--- OUTSIDE RECORDS SUMMARY | 2024-10-20 18:03 | XMS_ITS | Encounter Summary ---
Author Organization [facility] Address [address] [place] [address] Care Team Providers Care Special Officer Automat Name Role Phone Elodia Steinberg MABEL Primary Care Provider Encounter Details Date Type Department Care Team (Latest Contact Info) Description 09/14/2020 Lab Requisition [facility] [address] Through [address] [place] [address] [address] [place] [address] Jayce Morales MD [address] [place] [address] Encounter for laboratory testing for COVID-19 virus Social History Tobacco Use Types Packs/Day Years Used Date Smoking Tobacco: Never Assessed Comments Unknown Sex and Gender Information Value Date Recorded Sex Assigned at Not on file Legal Sex Female 2:29 PM EST Gender Identity Not on file [...] Roel Solorzano, Ph.D., Laboratory DirectorTests performed at [facility] Microbiology Nasopharyngeal swab / Unknown 09/14/2020 12:08 PM EST 09/14/2020 12:09 PM EST Narrative JONATHAN CORTEZ - 09/15/2020 9:12 AM EST Performed by [facility]., [address] [place] [address], CLIA# [id number] and [place] License# [id number] Jayce Morales MD MICROBIOLOGY - GENERAL ORDER NATANAEL Final Result JONATHAN CORTEZ documented in this encounter Visit Diagnoses Diagnosis Encounter for laboratory testing for COVID-19 virus documented in this encounter Care Teams Special Officer Automat Relationship Specialty Start Date End Date Elodia Steinberg APRN PCP - General Family Medicine 06/20/20 documented as of this encounter
--- OUTSIDE RECORDS SUMMARY | 2024-10-20 18:03 | XMS_ITS | Continuity of Care Document ---
Author Organization [facility] Address [address] [facility] [address] [place] [phone] Phone Care Team Providers Care Electronic Prepress System Operator Name Role Phone Jet DHILLON, Marlon Unavailable Unavailable Procedures Procedure Date 18-30 mmHg Thigh length gradient meghan becca stocking Office/Oupt E&M New Pt 45 Mins 24 Duplex Scan-extrem Veins; Comp 24 Advance Directives Directive Yes / No Effective Date File Name No Information Encounters Encounter Description Practice Location Reason(s) For Visit Diagnoses Date Provider Providers Copied on Encounter [facility], [address], [id number], [place] tel:[phone] [facility] Varicose veins of bilateral lower extremities with other complications 4 Jet Mason. [address] [place], [address], [place]. tel:[phone] Referring Provider: Elodia Lopez, [address] [place], [address]. tel:[phone] Office/Oupt E&M New Pt 45 Mins [facility], [address] [place] [address] [address], [place], [place], [id number], [place] tel:[phone] [place] Varicose veins of bilateral lower extremities with other complicationsRes tless legs syndromeVenous insufficiency (chronic) (peripheral)Cram p and spasmLocalized edema 4 Jet Mason. [address] [place], [address], [place]. tel:[phone] Referring Provider: Elodia Lopez, [address] [place] [address], [address]. tel:[phone] [facility], [address] [place] [address], [id number], [place] tel:[phone] [facility] [place] Chronic venous hypertension (idiopathic) with other complications of bilateral lower extremity 4 Oliver Guzman. [address] [place] [address], [address], [place], [id number] , [place]. tel: [phone] Referring Provider: Elodia Lopez, [address] [place] [address], [id number]. tel:[phone] Family History Family Member Type Diagnosis Age At Onset No Information Payers Payer name Insurance type Covered constitution party ID Authoriza tion(s) No Information Social History [...]
--- OUTSIDE RECORDS SUMMARY | 2024-10-20 18:03 | XMS_ITS | Encounter Summary ---
Author Organization [facility] Address [address] [place] [address] Care Team Providers Care Benefits Manager Name Role Phone IdrisElodia MABEL Primary Care Provider Encounter Details Date Type Department Care Team (Latest Contact Info) Description 06/20/2020 Lab Requisition [facility] COVID [address] Through [address] [place] [address] [address] [place] [address] Kip Bullock PA-C [address] [place] [address] Encounter for laboratory testing for COVID-19 virus [...] Not-Detec travon 06/21/2020 10:56 PM EST JONATHAN CORTEZ Comment:Interpretation: The viral RNA was not detected, making the COVID-19 diagnosis less likely. Clinical correlation is highly recommended.Final report signed by Jeronimo Tucker, Ph.D., [facility], Laboratory DirectorTests performed at [facility] Nasopharyngeal swab / Unknown 06/20/2020 2:39 PM EST 06/20/2020 2:39 PM EST Narrative JONATHAN CORTEZ - 06/21/2020 10:56 PM EST Performed by [facility] [address] [place] [address], CLIA# [id number] and [place] License# [id number] Kip Bullock PA-C MICROBIOLOGY - GENERAL OR DERABLES Final Result JONATHAN CORTEZ documented in this encounter Visit Diagnoses Diagnosis Encounter for laboratory testing for COVID-19 virus documented in this encounter Care Teams Benefits Manager Relationship Specialty Start Date End Date Elodia Steinberg APRN PCP - General Family Medicine 06/20/20 documented as of this encounter
--- OUTSIDE RECORDS SUMMARY | 2024-10-20 18:03 | XMS_ITS | Encounter Summary ---
Author Organization [facility] Address [address] [place] [address] Care Team Providers Care Packing Machine Operator Name Role Phone IdrisElodia MABEL Primary Care Provider Encounter Details Date Type Department Care Team (Latest Contact Info) Description 07/20/2020 Lab Requisition [facility] COVID Drive Through [address] [place] [address] [address] [place] [address] Kip Bullock PA-C [address] [place] [address] Encounter for laboratory testing for COVID-19 virus [...] Luan Haji, Ph.D., Laboratory DirectorTests performed at [facility] Microbiology Nasopharyngeal swab / Unknown 07/20/2020 5:15 PM EST 07/20/2020 5:16 PM EST Narrative JONATHAN CORTEZ - 07/22/2020 9:44 AM EST Performed by [facility]., [address] [place] [address], CLIA# [id number] and [place] License# [id number] Kip Bullock PA-C MICROBIOLOGY - GENERAL OR DERABLES Final Result Performing Organization Address City/State/[facility] Co de Phone Number JONATHAN CORTEZ documented in this encounter Visit Diagnoses Diagnosis Encounter for laboratory testing for COVID-19 virus documented in this encounter Care Teams Packing Machine Operator Relationship Specialty Start Date End Date Elodia Steinberg APRN PCP - General Family Medicine 06/20/20 documented as of this encounter
--- OUTSIDE RECORDS SUMMARY | 2024-10-20 18:03 | XMS_ITS | Encounter Summary ---
Author Organization [facility] Address [address] [place] [address] Care Team Providers Care Toll Mechanic Name Role Phone IdrisElodia MABEL Primary Care Provider Encounter Details Date Type Department Care Team (Latest Contact Info) Description 07/14/2020 Lab Requisition [facility] COVID Drive Through [address] [place] [address] [address] [place] [address] Kip Bullock PA-C [address] [place] [address] Encounter for laboratory testing for COVID-19 virus [...] Luan Haji, Ph.D., Laboratory DirectorTests performed at [facility] Nasopharyngeal swab / Unknown 07/14/2020 11:25 AM EST 07/14/2020 11:25 AM EST Narrative JONATHAN CORTEZ - 07/15/2020 4:56 PM EST Performed by [facility] [address] [place] [address], CLIA# [id number] and [place] License# [id number] Kip Bullock PA-C MICROBIOLOGY - GENERAL OR DERABLES Final Result Performing Organization Address City/State/[facility] Co de Phone Number JONATHAN CORTEZ documented in this encounter Visit Diagnoses Diagnosis Encounter for laboratory testing for COVID-19 virus documented in this encounter Care Teams Toll Mechanic Relationship Specialty Start Date End Date Elodia Steinberg APRN PCP - General Family Medicine 06/20/20 documented as of this encounter
--- OUTSIDE RECORDS SUMMARY | 2024-10-20 18:03 | XMS_ITS | Encounter Summary ---
Author Organization [facility] Address [address] [place] [address] Care Team Providers Care Fitness Coach Name Role Phone Elodia Steinberg MABEL Primary Care Provider Encounter Details Date Type Department Care Team (Latest Contact Info) Description 08/04/2020 Lab Requisition [facility] COVID Drive Through [address] [place] [address] [address] [place] [address] Jayce Morales MD [address] [place] [address] Encounter for laboratory testing for COVID-19 virus [...] Roel Solorzano, Ph.D., Laboratory DirectorTests performed at [facility] Nasopharyngeal swab / Unknown 08/04/2020 3:26 PM EST 08/04/2020 3:26 PM EST N[facility]ative [facility] - 08/05/2020 3:32 PM EST Performed by [facility] [address] [place] [address], CLIA# [id number] and [place] License# [id number] us Jayce Morales MD MICROBIOLOGY - GENERAL ORDER NATANAEL Final Result JONATHAN CORTEZ documented in this encounter Visit Diagnoses Diagnosis Encounter for laboratory testing for COVID-19 virus documented in this encounter Care Teams Fitness Coach Relationship Specialty Start Date End Date Elodia Steinberg APRN PCP - General Family Medicine 06/20/20 documented as of this encounter
--- OUTSIDE RECORDS SUMMARY | 2024-10-20 18:03 | XMS_ITS | Clinical Summary ---
Author Organization [facility] Address [address] [place] [address] Care Team Providers Care Plate Furnace Operator Name Role Phone Idris Elodia Primary Care Provider [phone] Allergies No known active allergies Medications miSOPROStoL [...] high-risk Negative Negative 07/15/2023 3:02 PM EST [facility] Brushing Cervix uteri structure / Unknown Non-blood Collection / Unknown 07/14/2023 2:50 PM EST 07/14/2023 6:12 PM EST Narrative [facility] - 07/15/2023 3:02 PM EST Negative [...] LAB MICROBIOLOGY - GENERAL ORDERABLES Final Result [facility] [address] [place] [address], * Pap Test (07/14/2023 2:50 PM EST) Case Report Cytology ?Case: [id number] ? Authorizing Provider: ??Eve Davila MD ?Collected: ? 07/14/2023 1450 ? Ordering Location: ? [facility] Department of Received: ?07/15/2023 0817 ? Women's Health ? First Screen: ?Diya Benavides CT (ASCP) ? Specimen: ?Cytopathology, screening PAP test, Cervix ? 07/15/2023 3:02 PM EST [facility] LMP 07/06/2023 07/15/2023 3:02 PM EST [facility] Interpretation Negative for intraepithelial lesion or malignancy 07/15/2023 3:02 PM EST [facility] at 1502 EST Specimen Adequacy Satisfactory for evaluation, endocervical/verma sformation zone component present 07/15/2023 3:02 PM EST [facility] Specimen Processing Thin Prep pap with manual screen/rescreen or review 07/15/2023 3:02 PM EST [facility] Educational Note The Pap test is a screening test which carries an inherent false negative rate. These test results should be correlated with the patient's clinical findings and history. 07/15/2023 3:02 PM [facility] Embedded Images 3:02 PM [facility] High Risk HPV Nucleic Acid Detection Negative 07/15/2023 3:02 PM [facility] Comment: Negative results indicate HPV E6/E7 [...] Department of Pathology and Laboratory Medicine at [facility] Brushing Cervix uteri structure / Unknown Non-blood Collection / Unknown 07/14/2023 2:50 PM EST 07/15/2023 8:17 AM EST us Eve Davila MD LAB PATHOLOGY/CYTOLOGY ORD ERABLES Final Result [facility] [address] [place] [address], [place] [phone] from Last 3 Months or Most Recently Relevant to Health Maintenance Insurance [employer] Care Teams Plate Furnace Operator Relationship Specialty Start Date End Date Elodia Steinberg [address] [place] [phone] PCP - General Family Medicine 05/02/23
--- OUTSIDE RECORDS SUMMARY | 2024-10-20 18:03 | XMS_ITS | Clinical Summary ---
Author Organization [facility] Address [address] [place] [address] Care Team Providers Care Laborer Hide House Name Role Phone Elodia Steinberg APRN Primary Care Provider [phone] Allergies No known active allergies Medications No [...] age to complete this topic Care Teams Laborer Hide House Relationship Specialty Start Date End Date Elodia Steinberg, MABEL [address] [facility] [place] [address] PCP - General Family Medicine 05/13/22
--- OUTSIDE RECORDS SUMMARY | 2024-10-20 18:03 | XMS_ITS | Encounter Summary ---
Author Organization [facility] Address [address] [place] [address] Care Team Providers Care Extension Clerk Name Role Phone Elodia Steinberg MABEL Primary Care Provider Encounter Details Date Type Department Care Team (Latest Contact Info) Description 08/11/2020 Lab Requisition [facility] COVID Drive Through [address] [place] [address] [address] [place] [address] Jayce Morales MD [address] [place] [address] Encounter for laboratory testing for COVID-19 virus [...] Luan Haji, Ph.D., Laboratory DirectorTests performed at [facility] Microbiology Nasopharyngeal swab / Unknown 08/11/2020 11:45 AM EST 08/11/2020 11:45 AM EST Narrative JONATHAN CORTEZ - 08/12/2020 11:15 AM EST Performed by [facility]., [address] [place] [address], CLIA# [id number] and [place] License# [id number] us Jayce Morales MD MICROBIOLOGY - GENERAL ORDER NATANAEL Final Result JONATHAN CORTEZ documented in this encounter Visit Diagnoses Diagnosis Encounter for laboratory testing for COVID-19 virus documented in this encounter Care Teams Extension Clerk Relationship Specialty Start Date End Date Elodia Steinberg APRN PCP - General Family Medicine 06/20/20 documented as of this encounter
--- OUTSIDE RECORDS SUMMARY | 2024-10-20 18:03 | XMS_ITS | Data Portability ---
Author Organization [place] - [facility], [facility] Address [address] [place] [address] Care Team Providers Care Painter Ordnance Name Role Phone OLGA ROSALES Terrazzo Supervisor [phone] SEAN WANG Outpatient Pharmacy Manager ALEKSANDRA STEINBERG Primary Care Provider Assessment No assessment recorded. Plan of Treatment Reminders Order Date Submit Date Provider Last Modified By Organization Details Last Modified Time Details Appointments PHYSICAL EXAM 45 2025 08:30A M Aleksandra Steinberg, FLOORMAN Not available Not available Not available Lab iron + TIBC + ferritin, serum 2024 025 [facility], [address] [facility], [place], [address], 08/24/2024 10:08:42 urinalysi s, dipstick 2024 025 [email or web address] 66 [facility], [address] [facility], [place], [address], 08/23/2024 08:52:47 CBC w/ auto diff 2024 025 [facility], [address] [facility], [place], [address], 08/24/2024 10:08:44 CMP, serum or plasma 2024 025 [facility], [address] [facility], [address], [place], [address], 08/24/2024 10:08:43 TSH, serum or plasma 2024 025 [facility], [address], [address], [place], [address], 08/24/2024 10:08:44 lipid panel, serum 2024 025 [facility], [address] [place] [address], [address], [place], [address], 08/24/2024 10:08:43 iron + TIBC + ferritin, serum 2023 024 [facility], [address] [place] [address], [address], [place], [address], 08/16/2023 07:24:44 CBC w/ auto diff 2023 024 [facility], [address] [place] [address], [address], [place], [address], 08/16/2023 07:24:46 CMP, serum or plasma 2023 024 [facility], [address] [place] [address], [address], [place], [address], 08/16/2023 07:24:45 TSH, serum or plasma 2023 024 [facility], [address] [place] [address], [address], [place], [address], 08/16/2023 07:24:46 lipid panel, serum 2023 024 [facility], [address] [place] [address], [address], [place], [address], 08/16/2023 07:24:45 urinalysi s, dipstick 2023 024 [email or web address] 66 [facility], [address], [place], [address], 08/15/2023 08:50:03 Referral otolaryng ologist referral - 1 week new onset pulsatile right ear tinnitus 2023 024 BRIDGET Camejo MD, [address] [place], [address], 10/07/2023 13:52:56 vein specialis t referral - varicose vein pain 2023 024 [facility], [address], [address], [place], [address], 09/10/2023 08:10:10 Procedures None recorded. Surgeries None recorded. Imaging None recorded. Medication Orders lorazepam 0.5 mg tablet 2023 024 [id number], [address] [place], [address], 08/23/2024 08:48:59 Patient TargetsNo targets recorded. Patient Instructions Encounter Date Encounter Id Patient Instructions Last Modified By Organization Details Last Modified Time 10/07/2023 [id number] A total of 45 minutes was spent [...] Aleksandra Steinberg, Family Medicine, Encounter Date: 08/15/2023 [employer] Referral fo r Subjective pulsatile tinnitus of [...] 91 mcg/d L 40-190 normal Not Available [facility] [place] [facility] [address], [place], [address], 08/16/2023 07:24:44 08/15/19 24 08/16/2023 IRON, TIBC AND YVETTE TIN PANEL iron binding capacity 328 mcg/d L_(ca lc) 250-45 0 normal Not Available [facility] [place] [facility] [address], [place], [address], 08/16/2023 07:24:44 08/15/19 24 08/16/2023 IRON, TIBC AND YVETTE TIN PANEL % saturation 28 %_(ca lc) 16-45 normal Not Available [facility] [address], [place], [address], 08/16/2023 07:24:44 08/15/19 24 08/16/2023 IRON, TIBC AND YVETTE TIN PANEL ferritin 5 NG/mL 16-154 low Not Available [facility] [address], [place], [address], 08/16/2023 07:24:44 08/15/19 24 08/16/2023 LIPID PANEL WITH REFLE X TO DIREC T LDL cholesterol, total 197 mg/dL <200 normal Not Available [facility] [place] [facility] [address], [place], [address], 08/16/2023 07:24:45 08/15/19 24 08/16/2023 LIPID PANEL WITH REFLE X TO DIREC T LDL HDL cholesterol 61 mg/dL > or = 50 normal Not Available [facility] [address], [place], [address], 08/16/2023 07:24:45 08/15/19 24 08/16/2023 LIPID PANEL WITH REFLE X TO DIREC T LDL triglyceride s 77 mg/dL <150 normal Not Available [facility] [address], [place], [address], 08/16/2023 07:24:45 08/15/19 24 08/16/2023 LIPID PANEL WITH REFLE X TO DIREC T LDL LDL-choleste rol 119 mg/dL _(kathia c) high Refer ence range : <100 Rabmo able range <100 mg/dL for prima ry preve ntion ; <70 mg/dL for patie nts with CHD or diabe tic patie nts with > or = 2 CHD risk facto rs. LDL-C is now calcu lated using the Kirti n-Hop kins calcu latio n, which is a valid ated novel prashanth dacosta tam r accur acy than the Fried hcidi equat ion in the estim ation of LDL-C . Kirti aranda SS et al. PRINCE. 2013; 310(1 9): 2061- 2068 (http ://ed ucati on.Bella Greenwood [employer]. com/f aq/FA Q164) Not Available [facility] [place] [facility] [address], [place], [address], 08/16/2023 07:24:45 08/15/19 24 08/16/2023 LIPID PANEL WITH REFLE X TO DIREC T LDL chol/HDLC ratio 3.2 (calc ) <5.0 normal Not Available [facility] [place] [facility] [address], [place], [address], 08/16/2023 07:24:45 08/15/19 24 08/16/2023 LIPID PANEL WITH REFLE X TO DIREC T LDL non HDL cholesterol 136 mg/dL _(kathia c) <130 high For patie nts with diabe dayne plus 1 major ASCVD risk facto r, treat ing to a non-H DL-C goal of <100 mg/dL (LDL- C of <70 mg/dL ) is shazia herrerao n. Not Available [facility] [address], [place], [address], 08/16/2023 07:24:45 08/15/19 24 08/16/2023 COMPR EHENS GILDA METAB OLIC PANEL glucose 82 mg/dL 65-99 normal Fasti ng refer ence inter darren Not Available [facility] [address], [place], [address], 08/16/2023 07:24:45 08/15/19 24 08/16/2023 COMPR EHENS GILDA METAB OLIC PANEL urea nitrogen (BUN) 10 mg/dL 7-25 normal Not Available [facility] [address], [place], [address], 08/16/2023 07:24:45 08/15/19 24 08/16/2023 COMPR EHENS GILDA METAB OLIC PANEL creatinine 0.73 mg/dL 0.50-0 .97 normal Not Available [facility] [address], [place], [address], 08/16/2023 07:24:45 08/15/19 24 08/16/2023 COMPR EHENS GILDA METAB OLIC PANEL eGFR 110 mL/mi n/1.7 3m2 > or = 60 normal Not Available [facility] [address], [place], [address], 08/16/2023 07:24:45 08/15/19 24 08/16/2023 COMPR EHENS GILDA METAB OLIC PANEL BUN/creatini ne ratio SEE NOTE: (calc ) 6-22 Not Repor travon: BUN and Creat inine are withi n refer ence range . Not Available [facility] [address] [place], [address], 08/16/2023 07:24:45 08/15/19 24 08/16/2023 COMPR EHENS GILDA METAB OLIC PANEL sodium 136 mmol/ L 135-14 6 normal Not Available [facility] [address], [place], [address], 08/16/2023 07:24:45 08/15/19 24 08/16/2023 COMPR EHENS GILDA METAB OLIC PANEL potassium 3.8 mmol/ L 3.5-5. 3 normal Not Available [facility] [address], [place], [address], 08/16/2023 07:24:45 08/15/19 24 08/16/2023 COMPR EHENS GILDA METAB OLIC PANEL chloride 101 mmol/ L 98-110 normal Not Available [facility] [address], [place], [address], 08/16/2023 07:24:45 08/15/19 24 08/16/2023 COMPR EHENS GILDA METAB OLIC PANEL carbon dioxide 28 mmol/ L 20-32 normal Not Available [facility] [address], [place], [address], 08/16/2023 07:24:45 08/15/19 24 08/16/2023 COMPR EHENS GILDA METAB OLIC PANEL calcium 9.2 mg/dL 8.6-10 .2 normal Not Available [facility] [address], [place], [address], 08/16/2023 07:24:45 08/15/19 24 08/16/2023 COMPR EHENS GILDA METAB OLIC PANEL protein, total 7.3 g/dL 6.1-8. 1 normal Not Available [facility] [address], [place], [address], 08/16/2023 07:24:45 08/15/19 24 08/16/2023 COMPR EHENS GILDA METAB OLIC PANEL albumin 4.4 g/dL 3.6-5. 1 normal Not Available [facility] [address], [place], [address], 08/16/2023 07:24:45 08/15/19 24 08/16/2023 COMPR EHENS GILDA METAB OLIC PANEL globulin 2.9 g/dL_ (calc ) 1.9-3. 7 normal Not Available [facility] [address], [place], [address], 08/16/2023 07:24:45 08/15/19 24 08/16/2023 COMPR EHENS GILDA METAB OLIC PANEL albumin/glob ulin ratio 1.5 (calc ) 1.0-2. 5 normal Not Available [facility] [address], [place], [address], 08/16/2023 07:24:45 08/15/19 24 08/16/2023 COMPR EHENS GILDA METAB OLIC PANEL bilirubin, total 0.4 mg/dL 0.2-1. 2 normal Not Available [facility] [address], [place], [address], 08/16/2023 07:24:45 08/15/19 24 08/16/2023 COMPR EHENS GILDA METAB OLIC PANEL alkaline phosphatase 51 U/L 31-125 normal Not Available [facility] [address], [place], [address], 08/16/2023 07:24:45 08/15/19 24 08/16/2023 COMPR EHENS GILDA METAB OLIC PANEL AST 10 U/L 10-30 normal Not Available [facility] [address], [place], [address], 08/16/2023 07:24:45 08/15/19 24 08/16/2023 COMPR EHENS GILDA METAB OLIC PANEL ALT 8 U/L 6-29 normal Not Available [facility] [place] [facility] [address], [place], [address], 08/16/2023 07:24:45 08/15/19 24 08/16/2023 CBC (INCL UDES DIFF/ PLT) white blood cell count 6.0 thous and/u L 3.8-10 .8 normal Not Available [facility] [place] [facility] [address], [place], [address], 08/16/2023 07:24:46 08/15/19 24 08/16/2023 CBC (INCL UDES DIFF/ PLT) red blood cell count 4.01 tonya on/uL 3.80-5 .10 normal Not Available [facility] [place] [facility] [address], [place], [address], 08/16/2023 07:24:46 08/15/19 24 08/16/2023 CBC (INCL UDES DIFF/ PLT) hemoglobin 11.2 g/dL 11.7-1 5.5 low Not Available [facility] [place] [facility] [address], [place], [address], 08/16/2023 07:24:46 08/15/19 24 08/16/2023 CBC (INCL UDES DIFF/ PLT) hematocrit 34.5 % 35.0-4 5.0 low Not Available [facility] [place] [facility] [address], [place], [address], 08/16/2023 07:24:46 08/15/19 24 08/16/2023 CBC (INCL UDES DIFF/ PLT) MCV 86.0 fL 80.0-1 00.0 normal Not Available [facility] [place] [facility] [address], [place], [address], 08/16/2023 07:24:46 08/15/19 24 08/16/2023 CBC (INCL UDES DIFF/ PLT) MCH 27.9 pg 27.0-3 3.0 normal Not Available [facility] [place] [facility] [address], [place], [address], 08/16/2023 07:24:46 08/15/19 24 08/16/2023 CBC (INCL UDES DIFF/ PLT) MCHC 32.5 g/dL 32.0-3 6.0 normal Not Available [facility] [place] [facility] [address], [place], [address], 08/16/2023 07:24:46 08/15/19 24 08/16/2023 CBC (INCL UDES DIFF/ PLT) RDW 13.0 % 11.0-1 5.0 normal Not Available [facility] [place] [facility] [address], [place], [address], 08/16/2023 07:24:46 08/15/19 24 08/16/2023 CBC (INCL UDES DIFF/ PLT) platelet count 364 thous and/u L 140-40 0 normal Not Available [facility] [place] [facility] [address], [place], [address], 08/16/2023 07:24:46 08/15/19 24 08/16/2023 CBC (INCL UDES DIFF/ PLT) MPV 11.1 fL 7.5-12 .5 normal Not Available [facility] [place] [facility] [address], [place], [address], 08/16/2023 07:24:46 08/15/19 24 08/16/2023 CBC (INCL UDES DIFF/ PLT) absolute neutrophils 3756 cells /uL 1500-7 800 normal Not Available [facility] [place] [facility] [address], [place], [address], 08/16/2023 07:24:46 08/15/19 24 08/16/2023 CBC (INCL UDES DIFF/ PLT) absolute lymphocytes 1566 cells /uL 850-39 00 normal Not Available [facility] [place] [facility] [address], [place], [address], 08/16/2023 07:24:46 08/15/19 24 08/16/2023 CBC (INCL UDES DIFF/ PLT) absolute monocytes 600 cells /uL 200-95 0 normal Not Available [facility] [place] [facility] [address], [place], [address], 08/16/2023 07:24:46 08/15/19 24 08/16/2023 CBC (INCL UDES DIFF/ PLT) absolute eosinophils 48 cells /uL 15-500 normal Not Available [facility] [place] [facility] [address], [place], [address], 08/16/2023 07:24:46 08/15/19 24 08/16/2023 CBC (INCL UDES DIFF/ PLT) absolute basophils 30 cells /uL 0-200 normal Not Available [facility] [place] [facility] [address], [place], [address], 08/16/2023 07:24:46 08/15/19 24 08/16/2023 CBC (INCL UDES DIFF/ PLT) neutrophils 62.6 % normal Not Available [facility] [address], [place], [address], 08/16/2023 07:24:46 08/15/19 24 08/16/2023 CBC (INCL UDES DIFF/ PLT) lymphocytes 26.1 % normal Not Available [facility] [place] [facility] [address] [place], [address], 08/16/2023 07:24:46 08/15/19 24 08/16/2023 CBC (INCL UDES DIFF/ PLT) monocytes 10.0 % normal Not Available [facility] [place] [facility] [address], [place], [address], 08/16/2023 07:24:46 08/15/19 24 08/16/2023 CBC (INCL UDES DIFF/ PLT) eosinophils 0.8 % normal Not Available [facility] [place] [facility] [address], [place], [address], 08/16/2023 07:24:46 08/15/19 24 08/16/2023 CBC (INCL UDES DIFF/ PLT) basophils 0.5 % normal Not Available [facility] [place] [facility] [address], [place], [address], 08/16/2023 07:24:46 08/15/19 24 08/16/2023 TSH W/REF ASAEL TO FT4 TSH w/reflex to FT4 1.34 mIU/L normal Refer ence Range > or = 20 Years 0.40- 4.50 Pregn ginger Range s First trime ster 0.26- 2.66 Secon d trime ster 0.55- 2.73 Third trime ster 0.43- 2.91 Not Available [facility] [place] [facility] [address], [place], [address], 08/16/2023 07:24:46 08/15/19 24 08/15/2023 urina lysis , dipst ick Glucose Negati ve Not Available [facility] [address] [facility], [place], [address], 08/15/2023 08:41:39 08/15/19 24 08/15/2023 urina lysis , dipst ick Leukocytes Negati ve Not Available [facility] [address] [facility], [place], [address], 08/15/2023 08:41:39 08/15/19 24 08/15/2023 urina lysis , dipst ick Nitrate Negati ve Not Available [facility] [address], [place], [address], 08/15/2023 08:41:39 08/15/19 24 08/15/2023 urina lysis , dipst ick Urobilinogen Negati ve Not Available [facility] [address], [place], [address], 08/15/2023 08:41:39 08/15/19 24 08/15/2023 urina lysis , dipst ick Protein Negati ve Not Available [facility] [address], [place], [address], 08/15/2023 08:41:39 08/15/19 24 08/15/2023 urina lysis , dipst ick pH 6.0 Not Available [facility] [address], [place], [address], 08/15/2023 08:41:39 08/15/19 24 08/15/2023 urina lysis , dipst ick Blood Negati ve Not Available [facility] [address], [place], [address], 08/15/2023 08:41:39 08/15/19 24 08/15/2023 urina lysis , dipst ick Specific [place] 1.015 Not Available [facility] [address], [place], [address], 08/15/2023 08:41:39 08/15/19 24 08/15/2023 urina lysis , dipst ick Ketone Negati ve Not Available [facility] [address], [place], [address], 08/15/2023 08:41:39 08/15/19 24 08/15/2023 urina lysis , dipst ick Bilirubin Negati ve Not Available [facility] [address], [place], [address], 08/15/2023 08:41:39 08/23/19 25 08/24/2024 IRON, TIBC AND YVETTE TIN PANEL iron, total 39 mcg/d L 40-190 low Not Available [facility] [place] [facility] [address], [place], [address], 08/24/2024 10:08:42 08/23/19 25 08/24/2024 IRON, TIBC AND YVETTE TIN PANEL iron binding capacity 326 mcg/d L_(ca lc) 250-45 0 normal Not Available [facility] [place] [facility] [address], [place], [address], 08/24/2024 10:08:42 08/23/19 25 08/24/2024 IRON, TIBC AND YVETTE TIN PANEL % saturation 12 %_(ca lc) 16-45 low Not Available [facility] [place] [facility] [address], [place], [address], 08/24/2024 10:08:42 08/23/19 25 08/24/2024 IRON, TIBC AND YVETTE TIN PANEL ferritin 6 NG/mL 16-154 low Not Available [facility] [place] [facility] [address], [place], [address], 08/24/2024 10:08:42 08/23/19 25 08/24/2024 LIPID PANEL WITH REFLE X TO DIREC T LDL cholesterol, total 193 mg/dL <200 normal Not Available [facility] [place] [facility] [address], [place], [address], 08/24/2024 10:08:43 08/23/19 25 08/24/2024 LIPID PANEL WITH REFLE X TO DIREC T LDL HDL cholesterol 64 mg/dL > or = 50 normal Not Available [facility] [place] [facility] [address] [place], [place], [address], 08/24/2024 10:08:43 08/23/19 25 08/24/2024 LIPID PANEL WITH REFLE X TO DIREC T LDL triglyceride s 69 mg/dL <150 normal Not Available [facility] [place] [facility] [address] [place], [place], [address], 08/24/2024 10:08:43 08/23/19 25 08/24/2024 LIPID PANEL [...] 9): 2061- 2068 (http ://ed ucati on.Bella madrigalHutchison [employer]. com/f aq/FA Q164) Not Available [facility] [place] [facility] [address] [place], [place], [address], 08/24/2024 10:08:43 08/23/19 25 08/24/2024 LIPID PANEL WITH REFLE X TO DIREC T LDL chol/HDLC ratio 3.0 (calc ) <5.0 normal Not Available [facility] [place] [facility] [address] [place], [place], [address], 08/24/2024 10:08:43 08/23/19 25 08/24/2024 LIPID PANEL WITH REFLE X TO DIREC T LDL non HDL cholesterol 129 mg/dL _(kathia c) <130 normal For patie nts with diabe dayne plus 1 major ASCVD risk facto r, treat ing to a non-H DL-C goal of <100 mg/dL (LDL- C of <70 mg/dL ) is consi dered a thera peuti c optio n. Not Available [facility] [place] [facility] [address], [place], [address], 08/24/2024 10:08:43 08/23/19 25 08/24/2024 COMPR EHENS GILDA METAB OLIC PANEL glucose 88 mg/dL 65-99 normal Fasti ng refer ence inter darren Not Available [facility] [address], [place], [address], 08/24/2024 10:08:43 08/23/19 25 08/24/2024 COMPR EHENS GILDA METAB OLIC PANEL urea nitrogen (BUN) 12 mg/dL 7-25 normal Not Available [facility] [place] [facility] [address], [place], [address], 08/24/2024 10:08:43 08/23/19 25 08/24/2024 COMPR EHENS GILDA METAB OLIC PANEL creatinine 0.77 mg/dL 0.50-0 .97 normal Not Available [facility] [place] [facility] [address], [place], [address], 08/24/2024 10:08:43 08/23/19 25 08/24/2024 COMPR EHENS GILDA METAB OLIC PANEL eGFR 102 mL/mi n/1.7 3m2 > or = 60 normal Not Available [facility] [address], [place], [address], 08/24/2024 10:08:43 08/23/19 25 08/24/2024 COMPR EHENS GILDA METAB OLIC PANEL BUN/creatini ne ratio SEE NOTE: (calc ) 6-22 Not Repor travon: BUN and Creat inine are withi n refer ence range . Not Available [facility] [address], [place], [address], 08/24/2024 10:08:43 08/23/19 25 08/24/2024 COMPR EHENS GILDA METAB OLIC PANEL sodium 135 mmol/ L 135-14 6 normal Not Available [facility] [address], [place], [address], 08/24/2024 10:08:43 08/23/19 25 08/24/2024 COMPR EHENS GILDA METAB OLIC PANEL potassium 4.1 mmol/ L 3.5-5. 3 normal Not Available [facility] [address], [place], [address], 08/24/2024 10:08:43 08/23/19 25 08/24/2024 COMPR EHENS GILDA METAB OLIC PANEL chloride 103 mmol/ L 98-110 normal Not Available [facility] [address], [place], [address], 08/24/2024 10:08:43 08/23/19 25 08/24/2024 COMPR EHENS GILDA METAB OLIC PANEL carbon dioxide 28 mmol/ L 20-32 normal Not Available [facility] [address], [place], [address], 08/24/2024 10:08:43 08/23/19 25 08/24/2024 COMPR EHENS GILDA METAB OLIC PANEL calcium 9.2 mg/dL 8.6-10 .2 normal Not Available [facility] [address], [place], [address], 08/24/2024 10:08:43 08/23/19 25 08/24/2024 COMPR EHENS GILDA METAB OLIC PANEL protein, total 7.2 g/dL 6.1-8. 1 normal Not Available [facility] [address], [place], [address], 08/24/2024 10:08:43 08/23/19 25 08/24/2024 COMPR EHENS GILDA METAB OLIC PANEL albumin 4.3 g/dL 3.6-5. 1 normal Not Available [facility] [address], [place], [address], 08/24/2024 10:08:43 08/23/19 25 08/24/2024 COMPR EHENS GILDA METAB OLIC PANEL globulin 2.9 g/dL_ (calc ) 1.9-3. 7 normal Not Available [facility] [address], [place], [address], 08/24/2024 10:08:43 08/23/19 25 08/24/2024 COMPR EHENS GILDA METAB OLIC PANEL albumin/glob ulin ratio 1.5 (calc ) 1.0-2. 5 normal Not Available [facility] [address], [place], [address], 08/24/2024 10:08:43 08/23/19 25 08/24/2024 COMPR EHENS GILDA METAB OLIC PANEL bilirubin, total 0.3 mg/dL 0.2-1. 2 normal Not Available [facility] [address], [place], [address], 08/24/2024 10:08:43 08/23/19 25 08/24/2024 COMPR EHENS GILDA METAB OLIC PANEL alkaline phosphatase 49 U/L 31-125 normal Not Available [facility] [address], [place], [address], 08/24/2024 10:08:43 08/23/19 25 08/24/2024 COMPR EHENS GILDA METAB OLIC PANEL AST 10 U/L 10-30 normal Not Available [facility] [place] [facility] [address], [place], [address], 08/24/2024 10:08:43 08/23/19 25 08/24/2024 COMPR EHENS GILDA METAB OLIC PANEL ALT 8 U/L 6-29 normal Not Available [facility] [place] [facility] [address], [place], [address], 08/24/2024 10:08:43 08/23/19 25 08/24/2024 CBC (INCL UDES DIFF/ PLT) white blood cell count 5.3 thous and/u L 3.8-10 .8 normal Not Available [facility] [place] [facility] [address], [place], [address], 08/24/2024 10:08:44 08/23/19 25 08/24/2024 CBC (INCL UDES DIFF/ PLT) red blood cell count 4.04 tonya on/uL 3.80-5 .10 normal Not Available [facility] [place] [facility] [address], [place], [address], 08/24/2024 10:08:44 08/23/19 25 08/24/2024 CBC (INCL UDES DIFF/ PLT) hemoglobin 11.2 g/dL 11.7-1 5.5 low Not Available [facility] [address], [place], [address], 08/24/2024 10:08:44 08/23/19 25 08/24/2024 CBC (INCL UDES DIFF/ PLT) hematocrit 35.7 % 35.0-4 5.0 normal Not Available [facility] [address], [place], [address], 08/24/2024 10:08:44 08/23/19 25 08/24/2024 CBC (INCL UDES DIFF/ PLT) MCV 88.4 fL 80.0-1 00.0 normal Not Available [facility] [address] [place], [place], [address], 08/24/2024 10:08:44 08/23/19 25 08/24/2024 CBC (INCL UDES DIFF/ PLT) MCH 27.7 pg 27.0-3 3.0 normal Not Available [facility] [facility] [address] [place], [place], [address], 08/24/2024 10:08:44 08/23/19 25 08/24/2024 CBC (INCL UDES DIFF/ PLT) MCHC 31.4 g/dL 32.0-3 6.0 low For adult s, a sligh t decre ase in the calcu lated MCHC value (in the range of 30 to 32 g/dL) is most likel y not clini adele signi shanell t; jordi er, it shoul d be inter prete d with cauti [facility] with other red cell kenn eters and the patie nt's clini kathia condi tion. Not Available [facility] [address] [place], [place], [address], 08/24/2024 10:08:44 08/23/19 25 08/24/2024 CBC (INCL UDES DIFF/ PLT) RDW 13.0 % 11.0-1 5.0 normal Not Available [facility] [address] [place], [place], [address], 08/24/2024 10:08:44 08/23/19 25 08/24/2024 CBC (INCL UDES DIFF/ PLT) platelet count 344 thous and/u L 140-40 0 normal Not Available [facility] [place] [facility] [address], [place], [address], 08/24/2024 10:08:44 08/23/19 25 08/24/2024 CBC (INCL UDES DIFF/ PLT) MPV 10.9 fL 7.5-12 .5 normal Not Available [facility] [place] [facility] [address], [place], [address], 08/24/2024 10:08:44 08/23/19 25 08/24/2024 CBC (INCL UDES DIFF/ PLT) absolute neutrophils 3063 cells /uL 1500-7 800 normal Not Available [facility] [place] [facility] [address], [place], [address], 08/24/2024 10:08:44 08/23/19 25 08/24/2024 CBC (INCL UDES DIFF/ PLT) absolute lymphocytes 1553 cells /uL 850-39 00 normal Not Available [facility] [place] [facility] [address], [place], [address], 08/24/2024 10:08:44 08/23/19 25 08/24/2024 CBC (INCL UDES DIFF/ PLT) absolute monocytes 594 cells /uL 200-95 0 normal Not Available [facility] [place] [facility] [address], [place], [address], 08/24/2024 10:08:44 08/23/19 25 08/24/2024 CBC (INCL UDES DIFF/ PLT) absolute eosinophils 58 cells /uL 15-500 normal Not Available [facility] [place] [facility] [address], [place], [address], 08/24/2024 10:08:44 08/23/19 25 08/24/2024 CBC (INCL UDES DIFF/ PLT) absolute basophils 32 cells /uL 0-200 normal Not Available [facility] [place] [facility] [address], [place], [address], 08/24/2024 10:08:44 08/23/19 25 08/24/2024 CBC (INCL UDES DIFF/ PLT) neutrophils 57.8 % normal Not Available [facility] [place] [facility] [address], [place], [address], 08/24/2024 10:08:44 08/23/19 25 08/24/2024 CBC (INCL UDES DIFF/ PLT) lymphocytes 29.3 % normal Not Available [facility] [place] [facility] [address], [place], [address], 08/24/2024 10:08:44 08/23/19 25 08/24/2024 CBC (INCL UDES DIFF/ PLT) monocytes 11.2 % normal Not Available [facility] [place] [facility] [address], [place], [address], 08/24/2024 10:08:44 08/23/19 25 08/24/2024 CBC (INCL UDES DIFF/ PLT) eosinophils 1.1 % normal Not Available [facility] [place] [facility] [address], [place], [address], 08/24/2024 10:08:44 08/23/19 25 08/24/2024 CBC (INCL UDES DIFF/ PLT) basophils 0.6 % normal Not Available [facility] [place] [facility] [address], [place], [address], 08/24/2024 10:08:44 08/23/19 25 08/24/2024 TSH W/REF ASAEL TO FT4 TSH w/reflex to FT4 1.43 mIU/L normal Refer ence Range > or = 20 Years 0.40- 4.50 Pregn ginger Range s First trime ster 0.26- 2.66 Secon d trime ster 0.55- 2.73 Third trime ster 0.43- 2.91 Not Available [facility] [address], [place], [address], 08/24/2024 10:08:44 08/23/19 25 08/23/2024 urina lysis , dipst ick Glucose Negati ve Not Available [facility] [address] [facility], [place], [address], 08/23/2024 08:46:18 08/23/19 25 08/23/2024 urina lysis , dipst ick Appearance Clear Not Available [facility] [address] [facility], [place], [address], 08/23/2024 08:46:18 08/23/19 25 08/23/2024 urina lysis , dipst ick Color Yellow Not Available [facility] [address] [facility], [place], [address], 08/23/2024 08:46:18 08/23/19 25 08/23/2024 urina lysis , dipst ick Leukocytes Negati ve Not Available [facility] [address] [facility], [place], [address], 08/23/2024 08:46:18 08/23/19 25 08/23/2024 urina lysis , dipst ick Nitrate Negati ve Not Available [facility] [address] [facility], [place], [address], 08/23/2024 08:46:18 08/23/19 25 08/23/2024 urina lysis , dipst ick Urobilinogen Negati ve Not Available [facility] [address] [facility], [place], [address], 08/23/2024 08:46:18 08/23/19 25 08/23/2024 urina lysis , dipst ick Protein Negati ve Not Available [facility] [address] [facility], [place], [address], 08/23/2024 08:46:18 08/23/19 25 08/23/2024 urina lysis , dipst ick pH 7.5 Not Available [facility] [address], [place], [address], 08/23/2024 08:46:18 08/23/19 25 08/23/2024 urina lysis , dipst ick Blood 1+ Not Available [facility] [address], [place], [address], 08/23/2024 08:46:18 08/23/19 25 08/23/2024 urina lysis , dipst ick Specific [place] 1.005 Not Available [facility] [address] [facility], [place], [address], 08/23/2024 08:46:18 08/23/19 25 08/23/2024 urina lysis , dipst ick Ketone Negati ve Not Available [facility] [address] [facility], [place], [address], 08/23/2024 08:46:18 08/23/19 25 08/23/2024 urina lysis , dipst ick Bilirubin Negati ve Not Available [facility] [address] [facility], [place], [address], 08/23/2024 08:46:18 09/11/19 24 09/09/2023 vascu cj gutiérrezi demar n (PROC ) No observ ation record ed. [email or web address] Not Available 01/2024 10:28:50 05/28/20 24 05/27/2024 alfonzo lr, [facility] No observ ation record ed. [email or web address] [facility] [address] [address], [place], [address], 05/28/2024 08:35:39 08/27/19 25 08/26/2024 vascu lar exami natio n (PROC ) No observ ation record ed. [email or web address] [facility] [address] [address], [place], [address], 08/27/2024 08:35:44 Result Notes None recorded. Problems Name Problem SNOMED Code Status Onset Date Resolution Date Notes Provider Name and Address Organization Details Recorded Time Active immunizat ion Active Problem Code: Z23; Problem Code Type: ICD-10; Not Available [facility] 3 03:44:26 Adult health examinati on Active Problem Code: Z00.00; Problem Code Type: ICD-10; Aleksandra Steinberg APRN [address], [place], [address] , [facility] 4 08:40:29 Body mass index 30+ - obesity 179226331 Active Problem Code: Z68.33; Problem Code Type: ICD-10; Not Available [facility] 3 03:44:26 Basal cell carcinoma of skin 217774840 Active Problem Code: C44.91; Problem Code Type: ICD-10; [address], [place], [address] , [facility] 4 08:50:12 Hyperlipi demia 87929861 Active Problem Code: E78.5; Problem Code Type: ICD-10; [address], [place], [address] , [facility] 4 08:40:33 Menorrhag ia 807593452 Active [address], [place], [address] , [facility] 4 08:49:32 Pain due to varicose veins of lower extremity 853699485 Active [address], [place], [address] , [facility] 4 09:09:01 Group A 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 Procedures Surgical History Date Name Laterality Status Provider Name and Address Organization Details Recorded Time 2024 EGFPDietAdvice Z713 completed Aleksandra Steinberg APRN [address], [place], [address] , [facility] 5 09:15:09 2024 EGFPCervicalCancerScreen Z124 completed Aleksandra Steinberg APRN [address], [place], [address] , [facility] 5 08:55:59 2023 EGFPCervicalCancerScreen Z124 completed Aleksandra Steinberg APRN [address], [place], [address] , [facility] 4 08:52:22 2023 Date of Last Pap Smear completed Aleksandra Steinberg APRN [address], [place], [address] , [facility] 5 08:56:09 Imaging Results Imaging Date Name Status LastModified by Organiz ation Details LastModified Time 09/09/2023 vascular examination (PROC) completed [email or web address] Information not available 09/11/2023 10:28:50 05/27/2024 venous mapping, lower extremity completed [email or web address] [facility] [address], [address], 05/28/2024 08:35:39 08/26/2024 vascular examination (PROC) completed [email or web address] [facility] [address] [facility], [place], [address], 08/27/2024 08:35:44 Procedure Notes None recorded. Medical [...] Details Last Updated DateTime 4 171.45 cm 18276.9 8 g 99 % 99 % 73 /min 120 mm[Hg] 88 mm[Hg] Janine Doll [facility] 4 08:37:15 Date Recorded Body mass index (BMI) Provider Name and Address Organization Details Last Updated DateTime 08/15/2023 33.5 kg/m2 Aleksandra Steinberg APRN [address] [facility], [place], [address], [facility] 08/15/2023 08:56:17 Date Recorded Body height Body mass index (BMI) Body weight Body temperature Oxygen saturation Oxygen saturation in Arterial blood by Pulse oximetry Heart rate Systolic blood pressure Diastolic blood pressure Provider Name and Address Organization Details Last Updated DateTime 4 171.45 cm 34.4 kg/m2 442483. 1 g 97.4 [degF] 97 % 97 % 68 /min 114 mm[Hg] 86 mm[Hg] Amelia Londono [facility] 4 11:43:24 Date Recorded Body height Body mass index (BMI) Body weight Oxygen saturation Oxygen saturation in Arterial blood by Pulse oximetry Heart rate Body temperature Systolic blood pressure Diastolic blood pressure Provider Name and Address Organization Details Last Updated DateTime 171.45 cm 33.2 kg/m2 73581.4 6 g 99 % 99 % 72 /min 97.8 [degF] 116 mm[Hg] 91 mm[Hg] Araceli Marroquindeb [facility] 08:37:33 Social History Question Answer Notes LastModified by Organization Details LastModified Time Tobacco Smoking Status Never Smoker Not Available [facility] 03/24/2023 12:28:04 Do You Have An [...] Or The Highest Degree You Have Received? 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 No Information not available 08/23/2024 What Is The Fluoride Status Of Your Home? Non-fluoridated Information not available 08/23/2024 Are There Any Guns Present In Your Home? No Information not available 08/23/2024 Which Of Your Hands Is Dominant? Right Information not available 08/23/2024 [facility] Information not available 08/23/2024 Do You Have A Medical Power Of Bridge Worker? No Information not available 08/23/2024 What Was [...] Anxious, Or Unable To Sleep At Night)? [id number] Information not available 08/23/2024 Do You Use [...] Mother : Alive Hypothyroid Paternal Grandfather: DM, [place] age 57 Paternal Grandmother: htn Maternal Grandfather: [...] virus, quadrivalent, PF 2 completed Not Available [facility] 04/14/2023 06:54:15 Tdap 8 completed Not Available [facility] 04/14/2023 06:54:15 Influenza, recombinant, quadrivalent, PF 2 completed Not Available [facility] 04/14/2023 06:54:15 Influenza, split virus, trivalent, preservative 2 completed Not Available [facility] 04/14/2023 06:54:15 COVID-19, mRNA, LNP-S, PF, 30 mcg/0.3 mL dose 1 completed Aleksandra Steinberg APRN [address] [facility], [place], [address], [place] [facility] 08/23/2024 08:49:12 COVID-19, mRNA, LNP-S, PF, 30 mcg/0.3 mL dose 1 completed Aleksandra Steinberg APRN [address] [place], [address], [place] [facility] 08/23/2024 08:49:13 Past Encounters Encounter ID Performer Location Encounter Start Date Encounter Closed Date Diagnosis/Indication Diagnosis SNOMED-CT Code Diagnosis ICD10 Code Diagnosis Note [id number] Aleksandra Steinberg APRN [facility] [address] [place] [address] 08/15/2023 08:12:49 08/15/2023 09:13:47 Adult health examination 416347934 Z00.00 I have reviewed, and updated patient's past medical, surgical, family, and social historyMos t recent dental eye and specialist examsCouns eled about the following: -healthy lifestyle- stress management -exercise 100-150min /week-Limi ting alcohol intake-Dys lipidemia screening- Cervical cancer screening- Age appropriat e immunizati ons Menorrhagia 670802000 N9 2.0 Continue to follow with DIRECTOR OF ROOMS. Will check iron panel. Pain due t o varicose veins of lower extremity 396225519 I83.819 Will refer to vascular for further treatment [id number] Michelle Garces MD [facility] [address] [place] [address] 10/07/2023 11:23:56 10/07/2023 12:50:49 Subjective pulsatile tinnitus of right ear 9623968979 323017 H93.A1 concern is that it is unilateral and pulsatile in nature. Will refer her urgently to ear nose and throat doctor. A call was placed to see if I could get her in today as she took the day off. Will also prescribe lorazepam to try to help her with sleep at night. [id number] Aleksandra Steinberg APRN [facility] [address] [place] [address] 08/23/2024 08:26:12 08/23/2024 09:15:26 Adult health examination 710501928 Z00.00 I have reviewed, and updated patient's past medical, surgical, family, and social historyMos t recent dental eye and specialist examsCouns eled about the following: -healthy lifestyle- stress management -exercise 100-150min /week-[place] alcohol intake-Dys lipidemia screening- Cervical cancer screening- Age appropriat e immunizati ons Menorrhagia 069121395 N9 2.0 Continue to follow with DIRECTOR OF ROOMS. Will check iron panel. Body mass index 30+ - obesity 414496828 Z68.33 Cont healthy diet, portion control. Is [...] Guarantor Name 08/15/2023 1 [place] [facility] [employer] - [facility] [employer] [facility] [place] [employer] [place] [id number] Danae B [place] 10/07/2023 1 [place] [facility] [employer] - [facility] [employer] [facility] [place] [employer] [place] [id number] Danae B [place] 08/23/2024 1 [place] [facility] [employer] - [facility] [employer] [address] [place] [employer] [place] [id number] [facility] Notes Date Note Type Note Provider Name [...] is finishing up. 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 She is up-to-date with seeing her rippler annually. Does have a history of basal cell. Aleksandra Steinberg APRN [address], [place], [address], [facility] 08/15/2023 [...] Garces MD [address], [place], [address], [facility] 10/07/2023 13:01:10 08/23/2024 text/html Patient presents for YPE. She is fasting for blood work. She is up-to-date with seeing her rippler and assistant unit forester annually. Does have a history of basal cell.Health updates: had venous ablations last year- significant improvement in leg pain.Still with heavy mensesWork is going wellEats very healthy, sleeping well, managing stress well. Aleksandra Steinberg APRN [address], [place], [address], [facility] 08/23/2024 09:17:24 OBGyn Episode No OBEpisode recorded.
--- OUTSIDE RECORDS SUMMARY | 2024-10-20 18:03 | XMS_ITS | Encounter Summary ---
Author Organization [facility] Address [address] [place] [address] Care Team Providers Care Extra Hand Name Role Phone Elodia Steinberg MABEL Primary Care Provider Encounter Details Date Type Department Care Team (Latest Contact Info) Description 08/25/2020 Lab Requisition [facility] COVID [address] Through [address] [place] [address] [address] [place] [address] Jayce Morales MD [address] [place] [address] Encounter for laboratory testing for COVID-19 virus [...] RIYA Not-Detec riya 08/26/2020 3:32 PM EST JONATHAN CORTEZ Comment:Interpretation: The viral RNA was not detected, making the COVID-19 diagnosis less likely. Clinical correlation is highly recommended.Final report signed by Roel Solorzano, Ph.D., Laboratory DirectorTests performed at [facility] Nasopharyngeal swab / Unknown 08/25/2020 1:01 PM EST 08/25/2020 1:02 PM EST Narrative [facility] - 08/26/2020 3:32 PM EST Performed by [facility] [address] [place] [address], CLIA# [id number] and [place] License# [id number] Jayce Morales MD MICROBIOLOGY - GENERAL ORDER NATANAEL Final Result JONATHAN CORTEZ documented in this encounter Visit Diagnoses Diagnosis Encounter for laboratory testing for COVID-19 virus documented in this encounter Care Teams Extra Hand Relationship Specialty Start Date End Date Elodia Steinberg APRN PCP - General Family Medicine 06/20/20 documented as of this encounter
--- OUTSIDE RECORDS SUMMARY | 2024-10-20 18:03 | XMS_ITS | Clinical Summary ---
Author Organization [facility] Address [address] [place] [address] Care Team Providers Care Head Nurse Name Role Phone Elodia Steinberg APRN Primary Care Provider Allergies No known active allergies Medications amoxicillin (AMOXIL) 500 MG capsuleIndicati ons:Strep throat exposure Take 1 capsule (500 mg total) by mouth 2 (two) times a day. 14 capsule 12/20/2022 Active Active Problems No known active problems Social History Tobacco Use Types Packs/Day Years Used Date Smoking Tobacco: Never Smokeless Tobacco: Never Tobacco Cessation:Counseling Given: Not Answered Alcohol Use Standard Drinks/Week Comments Not Currently 0 (1 standard drink = 0.6 oz pur e alcohol) Comments Unknown Sex and Gender Information Value [...] on patient's age to complete this topic Insurance [employer] [facility] [employer] [facility] Care Teams Head Nurse Relationship Specialty Start Date End Date Elodia Steinberg APRN PCP - General Family Medicine 06/20/20
--- OUTSIDE RECORDS SUMMARY | 2024-10-20 18:03 | XMS_ITS | Encounter Summary ---
Author Organization [facility] Address [address] [place] [address] Care Team Providers Care Driver Messenger Name Role Phone Elodia Steinberg MABEL Primary Care Provider Encounter Details Date Type Department Care Team (Latest Contact Info) Description 10/13/2020 Lab Requisition [facility] COVID Drive Through [address] [place] [address] [address] [place] [address] Jayce Morales MD [address] [place] [address] Encounter for laboratory testing for COVID-19 virus [...] Detected Not Detected 10/13/2020 6:24 PM EDT [facility] Comment: Negative results do [...] labeling are available on the FDA website: https://www.fda.gov/medical-devices/ydjzvaied-lufslrqmqt-mfxjspn-devices/emergen - j-lpdmhkrifjbbcn-ygsmvbg-devices. Performed at [facility], [place], [place] ??[place] License [id number] ??CLIA [id number] Source Nasopharyngeal 10/13/2020 6:24 PM EDT [facility] Comment:Performed at [facility], [facility], [place] license No. [id number] CLIA No. [id number] Microbiology Nasopharyngeal swab / Unknown 10/13/2020 2:15 PM EDT 10/13/2020 2:15 PM EDT us Jacye Morales MD MICROBIOLOGY - GENERAL ORDER NATANAEL Final Result [facility] [address] [place] [address] documented in this encounter Visit Diagnoses Diagnosis Encounter for laboratory testing for COVID-19 virus documented in this encounter Care Teams Driver Messenger Relationship Specialty Start Date End Date Elodia Steinberg APRN PCP - General Family Medicine 06/20/20 documented as of this encounter
--- OUTSIDE RECORDS SUMMARY | 2024-10-20 18:03 | XMS_ITS | Continuity of Care Document ---
Author Organization [facility] Address [address] [place] [address] Phone Care Team Providers Care Shaker Repairer Name Role Phone Idris DHILLON, RVT, RPVI, [...] Mins- [place] & [place] [facility], [address] [place] [address] Dr Cifuentes [address] Scar Valladares [place], [id number], [place] tel:[phone] [facility] Lymphedema, not elsewhere classifiedHere ditary lymphedemaVeno us insufficiency (chronic) (peripheral)Ti saige campbell 5 Idris DHILLON RVT, AMITA Canales. [address] [place] [address], Mayi whalen [place], [id number], [place]. tel:[phone] Referring Provider: Elodia Lopez, [address] [place] [address], [facility]. tel:[phone] [facility], [address] [place] [address] Dr Cifuentes [address] Scar Valladares [place], [id number], [place] tel:[phone] [facility] Chronic venous hypertension (idiopathic) with other complications of bilateral lower extremity 5 Idris DHILLON RVT, AMITA Canales. [address] [place] [address], [place], [id number], [place]. tel:[phone] Referring Provider: Elodia Lopez, [address] [place] [address], [address]. tel:[phone] [facility], [address] [place] [address] Dr Cifuentes [address] Scar Valladares [place], [id number], [place] tel:[phone] [facility] - [facility] Encounter for follow-up examination after completed treatment for conditions other than malignant neoplasmPain in left leg 5 Idris DHILLON RVT, AMITA Canales. [address] [place] [address], Mayi whalen [place], [id number], [place]. tel:[phone] Referring Provider: Elodia Lopez, [address] [place] [address], [address]. tel:[phone] [facility] MD VICTOR, [address] [place] [address] Dr Cifuentes [address] Scar Valladares MD, [id number], [place] tel:[phone] [facility] [place] Varicose veins of left lower extremity with other complications 5 Idris DHILLON RVT, AMITA Canales. [address] [place] [address], [facility] [place] [place], [id number], [place]. tel:[phone] Referring Provider: Elodia Lopez, [address] [place] [address], [address]. tel:[phone] [facility] MD VICTOR, [address] [place] [address] Dr Cifuentes [address]Suite Scar Valladares MD, [id number], [place] tel:[phone] [facility] [place] Encounter for follow-up examination after completed treatment for conditions other than malignant neoplasmPain in left leg 4 Majo Rodriguez. [address], [address], [place], [place], [id number], [place]. tel:[phone] Referring Provider: Elodia Lopez, [address] [place] [address], [address]. tel:[phone] [facility] MD VICTOR, [address] [place] [address] Dr Cifuentes [address] Scar Valladares MD, [id number], [place] tel:[phone] [facility] [place] Varicose veins of left lower extremity with other complications 4 Idris DHILLON RVT, RPVI Robert. [address] [place] [address], [facility] [place], [id number], [place]. tel:[phone] Referring Provider: Elodia Lopez, [address] [place] [address], [address]. tel:[phone] [facility] MD VICTOR, [address] [place] [address] Dr Cifuentes [address] 1000Scar [place], [id number], [place] tel:[phone] [facility] Encounter for follow-up examination after completed treatment for conditions other than malignant neoplasmChroni c venous hypertension (idiopathic) with other complications of right lower extremity Jun- 4 Idris DHILLON RVT, RPVI Robert. [address] [address], [facility] [place], [id number], [place]. tel:[phone] Referring Provider: Elodia Lopez, [address] [place] [address], [facility]. tel:[phone] [facility], [address] [place] [address] Dr Cifuentes 1000SuScar mitchell [place], [id number], [place] tel:[phone] [facility] Chronic venous hypertension (idiopathic) with inflammation of right lower extremity 4 Idris DHILLON RVT, RPVI Robert. [address] [place] [address], [facility] [place], [id number], [place]. tel:[phone] Referring Provider: Elodia Lopez, [address] [place] [address], [facility]. tel:[phone] [facility], [address] [place] [address] Dr Cifuentes 1000SuScar mitchell MD, [id number], [place] tel:[phone] [facility] No Information 4 Idris DHILLON RVT, RPVI Robert. [facility] [address], [facility] [place], [id number], [place]. tel:[phone] Office/Oupt E&M New Pt 30 Mins- [place] & [place] [facility], [address] [place] [address] Dr Cifuentes 1000SuScar mitchell MD, [id number], [place] tel:[phone] [facility] Chronic venous hypertension (idiopathic) with other complications of bilateral lower extremityRestl ess legs syndromeLymphe vinicio, not elsewhere classifiedHere ditary lymphedemaCram p and spasmLocalized edema 4 Idris DHILLON RVT, RPVI Robert. [address] [facility] [address], [facility] [place], [id number], [place]. tel:[phone] [facility], [address], [place], [id number], tel:[phone] [facility] [place] Chronic venous hypertension (idiopathic) with other complications of bilateral lower extremity Martinez Steinberg MD, RVT, RPVI Robert. [address] [facility] [address], May[place], [id number], [place]. tel:[phone] Referring Provider: Parker Steibnerg MD, RVT, AMITA, [address] [address], [place], [address] . tel:[phone] Family History Family Member Type Diagnosis Age At Onset No Information Payers Payer name Insurance type Covered republican ID Authoriza paulie(s) [facility] [id number] Social History Type Description Quantity Date Captured [...]
--- OUTSIDE RECORDS SUMMARY | 2024-10-20 18:03 | XMS_ITS | Encounter Summary ---
Author Organization [facility] Address [address] [place] [address] Care Team Providers Care Head Of Marketing Name Role Phone Elodia Steinberg MABEL Primary Care Provider Encounter Details Date Type Department Care Team (Latest Contact Info) Description 09/08/2020 Lab Requisition [facility] COVID Drive Through [address] [place] [address] [address] [place] [address] Jayce Morales MD [address] [place] [address] Encounter for laboratory testing for COVID-19 virus [...] RIYA Not-Detec riya 09/09/2020 2:17 PM EST JONATHAN CORTEZ Comment:Interpretation: The viral RNA was not detected, making the COVID-19 diagnosis less likely. Clinical correlation is highly recommended.Final report signed by Roel Solorzano, Ph.D., Laboratory DirectorTests performed at [facility] Nasopharyngeal swab / Unknown 09/08/2020 2:54 PM EST 09/08/2020 2:54 PM EST Narrative [facility] L[facility] - 09/09/2020 2:17 PM EST Performed by [facility] [address] [place] [address], CLIA# [id number] and [place] License# [id number] us Jayce Morales MD MICROBIOLOGY - GENERAL ORDER NATANAEL Final Result JONATHAN CORTEZ documented in this encounter Visit Diagnoses Diagnosis Encounter for laboratory testing for COVID-19 virus documented in this encounter Care Teams Head Of Marketing Relationship Specialty Start Date End Date Elodia Steinberg APRN PCP - General Family Medicine 06/20/20 documented as of this encounter
--- OUTSIDE RECORDS SUMMARY | 2024-10-20 18:03 | XMS_ITS | Encounter Summary ---
Author Organization [facility] Address [address] [place] [address] Care Team Providers Care Crown Assembly Machine Set Up Mechanic Name Role Phone Elodia Steinberg MABEL Primary Care Provider Encounter Details Date Type Department Care Team (Latest Contact Info) Description 08/18/2020 Lab Requisition [facility] COVID Drive Through [address] [place] [address] [address] [place] [address] Jayce Morales MD [address] [place] [address] Encounter for laboratory testing for COVID-19 virus [...] Luan Haji, Ph.D., Laboratory DirectorTests performed at [email or web address] Nasopharyngeal swab / Unknown 08/18/2020 11:37 AM EST 08/18/2020 11:37 AM EST Narrative JONATHAN CORTEZ - 08/19/2020 3:35 PM EST Performed by [email or web address] [address] [place] [address], CLIA# [id number] and [place] License# [id number] us Jayce Morales MD MICROBIOLOGY - GENERAL ORDER NATANAEL Final Result JONATHAN CORTEZ documented in this encounter Visit Diagnoses Diagnosis Encounter for laboratory testing for COVID-19 virus documented in this encounter Care Teams Crown Assembly Machine Set Up Mechanic Relationship Specialty Start Date End Date Elodia Steinberg APRN PCP - General Family Medicine 06/20/20 documented as of this encounter
--- OUTSIDE RECORDS SUMMARY | 2024-10-20 18:03 | XMS_ITS | Encounter Summary ---
Author Organization Former[facility] Address [address] [place] [address] Care Team Providers Care Soil Sort Worker Name Role Phone Elodia Steinberg MABEL Primary Care Provider Encounter Details Date Type Department Care Team (Latest Contact Info) Description 09/01/2020 Lab Requisition [facility] COVID Drive Through [address] [place] [address] [address] [place] [address] Jayce Morales MD [address] [place] [address] Encounter for laboratory testing for COVID-19 virus [...] RIYA Not-Detec riya 09/02/2020 3:10 PM EST JONATHAN CORTEZ Comment:Interpretation: The viral RNA was not detected, making the COVID-19 diagnosis less likely. Clinical correlation is highly recommended.Final report signed by Roel Solorzano, Ph.D., Laboratory DirectorTests performed at [facility] Nasopharyngeal swab / Unknown 09/01/2020 2:23 PM EST 09/01/2020 2:23 PM EST Narrative [facility] MAHOGANY Philip LIRAALESSIA - 09/02/2020 3:10 PM EST Performed by [facility]., [address] [place] [address], CLIA# [id number] and [place] License# [id number] us Jayce Morales MD MICROBIOLOGY - GENERAL ORDER NATANAEL Final Result JONATHAN CORTEZ documented in this encounter Visit Diagnoses Diagnosis Encounter for laboratory testing for COVID-19 virus documented in this encounter Care Teams Soil Sort Worker Relationship Specialty Start Date End Date Elodia Steinberg APRN PCP - General Family Medicine 06/20/20 documented as of this encounter
--- OUTSIDE RECORDS SUMMARY | 2024-10-20 18:03 | XMS_ITS | Encounter Summary ---
Author Organization [facility] Address [address] [place] [address] Care Team Providers Care Spot Sprayer Name Role Phone Elodia Steinberg MABEL Primary Care Provider Encounter Details Date Type Department Care Team (Latest Contact Info) Description 10/06/2020 Lab Requisition [facility] COVID Drive Through [address] [place] [address] [address] [place] [address] Jayce Morales MD 80 [place] [address] Encounter for laboratory testing for COVID-19 virus [...] Detected 10/06/2020 7:21 PM EDT [facility] Comment: Negative results do [...] labeling are available on the FDA website: https://www.fda.gov/medical-devices/rvebxddvv-gbfafdfakl-uifyogh-devices/emergen - j-shhmsykdsazxxe-igdrfxq-devices. Performed at [facility] License 0385 ??CLIA [id number] Source Nasopharyngeal 10/06/2020 7:21 PM EDT [facility] Comment:Performed at [facility], [facility], [place] license No. [id number] CLIA No. [id number] Microbiology Nasopharyngeal swab / Unknown 10/06/2020 3:06 PM EDT 10/06/2020 3:06 PM EDT us Jayce Morales MD MICROBIOLOGY - GENERAL ORDER NATANAEL Final Result [facility] [address] [place] [address] documented in this encounter Visit Diagnoses Diagnosis Encounter for laboratory testing for COVID-19 virus documented in this encounter Care Teams Spot Sprayer Relationship Specialty Start Date End Date Elodia Steinberg APRN PCP - General Family Medicine 06/20/20 documented as of this encounter
--- OUTSIDE RECORDS SUMMARY | 2024-10-20 18:03 | XMS_ITS | Clinical Summary ---
Author Organization [facility] Address [address] [place] [address] Care Team Providers Care Over Hauler Helper Name Role Phone Idris Elodia SALES REPRESENTATIVE Primary Care Provider [phone] Social History Tobacco Use Types Packs/Day Years [...] age to complete this topic Care Teams Over Hauler Helper Relationship Specialty Start Date End Date Elodia Steinberg NP [address] [place] [address] PCP - General 05/13/22
--- OUTSIDE RECORDS SUMMARY | 2024-10-20 18:03 | XMS_ITS | Encounter Summary ---
Author Organization [facility] Address [address] [place] [address] Care Team Providers Care Battery Assembler Name Role Phone Elodia Steinberg MABEL Primary Care Provider Encounter Details Date Type Department Care Team (Latest Contact Info) Description 07/27/2020 Lab Requisition [facility] COVID Drive Through [address] [place] [address] [address] [place] [address] Jayce Morales MD 80 [place] [address] Encounter for laboratory testing for COVID-19 virus [...] Not-Detec riya 07/28/2020 10:15 PM EST [facility] Comment:Interpretation: The viral RNA was not detected, making the COVID-19 diagnosis less likely. Clinical correlation is highly recommended.Final report signed by Roel Solorzano, Ph.D., Laboratory DirectorTests performed at [facility] Nasopharyngeal swab / Unknown 07/27/2020 3:20 PM EST 07/27/2020 3:20 PM EST Narrative [facility] COR[facility] - 07/28/2020 10:15 PM EST Performed by [facility] [address] [place] [address], CLIA# [id number] and [place] License# [id number] us Jayce Morales MD MICROBIOLOGY - GENERAL ORDER NATANAEL Final Result JONATHAN CORTEZ documented in this encounter Visit Diagnoses Diagnosis Encounter for laboratory testing for COVID-19 virus documented in this encounter Care Teams Battery Assembler Relationship Specialty Start Date End Date Elodia Steinberg APRN PCP - General Family Medicine 06/20/20 documented as of this encounter
--- OUTSIDE RECORDS SUMMARY | 2024-10-20 18:03 | XMS_ITS | Encounter Summary ---
Author Organization [facility] Address [address] [place] [address] Care Team Providers Care Balloon Design Printer Name Role Phone Elodia Steinberg MABEL Primary Care Provider Encounter Details Date Type Department Care Team (Latest Contact Info) Description 09/22/2020 Lab Requisition [facility] COVID Drive Through [address] [place] [address] [address] [place] [address] Jayce Morales MD 80 [place] [address] Encounter for laboratory testing for COVID-19 virus [...] Not-Detec riya 09/23/2020 1:11 PM EDT [facility] [place] Comment:Interpretation: The viral RNA was not detected, making the COVID-19 diagnosis less likely. Clinical correlation is highly recommended.Final report signed by Luan Haji, Ph.D., Laboratory DirectorTests performed at [facility] Nasopharyngeal swab / Unknown 09/22/2020 1:53 PM EDT 09/22/2020 1:53 PM EDT Narrative JONATHAN CORTEZ - 09/23/2020 1:11 PM EDT Performed by [facility] [address] [place] [address], CLIA# [id number] and [place] License# [id number] us Jayce Morales MD MICROBIOLOGY - GENERAL ORDER NATANAEL Final Result JONATHAN CORTEZ documented in this encounter Visit Diagnoses Diagnosis Encounter for laboratory testing for COVID-19 virus documented in this encounter Care Teams Balloon Design Printer Relationship Specialty Start Date End Date Elodia tSeinberg APRN PCP - General Family Medicine 06/20/20 documented as of this encounter
== END 2024-10-20 16:50 | disposition home or self-care (01) ==
LOC: HO.HWS 15:37
PROVIDERS: Visit Provider Obstetrics & Gynecology
DX: N93.9 Abnormal uterine and vaginal bleeding, unspecified (principal); Z32.02 Encounter for pregnancy test, result negative; Z30.430 Encounter for insertion of intrauterine contraceptive device
CPT/HCPCS: 58100; 58300

== ENCOUNTER 2024-12-09 12:29 | Outpatient (AMB) | payer BC, SELFPAY ==
--- NOTE | 2024-12-09 12:33 | MHC.OFFVIS ---
Intake Visit Reasons: IUD check Ticketing Agent: Ticketing Agent Present (Lilly Brambila ) Accompanied by: Self / Same As Patient Allergies No Known Allergies Allergy (Verified 12/09/24 12:34) HPI Comments Details: The patient is presenting for IUD check after 1 st period following IUD insertion. 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[employer] [place] Sexual orientation: Straight/Heterosexual Gender identity: Female Review of Systems Const All systems reviewed & are unremarkable except as noted in HPI and below Physical Exam General: Yes no CVA tenderness External Female Exam: normal external appearance and normal appearance of the urethra Speculum Exam - Vagina: normal appearance of the vagina, normal palpation, no lesions and no masses Speculum Exam - Cervix: normal appearance of the cervix, normal palpation, no lesions, no masses, nontender and Other cervical findings present (IUD string in place) Bimanual exam- vagina & uterus: normal bimanual exam, normal palpation, uterine size normal, normal palpation, uterine shape normal, No Cervical tenderness present and non-tender Bimanual Exam- Adnexa, other: normal adnexae Back/Spine/Pelvis Back: no CVA tenderness Assessment & Plan Assessment & Plan (1) IUD check up: Code(s): Z30.431 - Encounter for routine checking of intrauterine contraceptive device Category: Medical Plan: UPT done in the office was negative. Discussed with the patient the finding on physical exam, IUD string in place. Instructions given to patient to call in case of pelvic cramping/pelvic pain, persistence abnormal uterine bleeding, will proceed then with a pelvic ultrasound to confirm IUD position. Otherwise follow-up at her annual exam appointment. All questions answered, the patient verbalized understanding. Coding Level of Care Code Est Pt Level 3 (13355) Diagnoses IUD check up Z30.431
== END 2024-12-09 12:54 | disposition home or self-care (01) ==
LOC: HO.HWS 12:29
PROVIDERS: Visit Provider Obstetrics & Gynecology
DX: Z30.431 Encounter for routine checking of intrauterine contraceptive device (principal); Z32.02 Encounter for pregnancy test, result negative
CPT/HCPCS: 99213

== ENCOUNTER → 2024-12-09 12:29 | Outpatient (BNVA) | payer BC, SELFPAY | PROVIDERS: Visit Provider Obstetrics & Gynecology | DX: Z30.431 Encounter for routine checking of intrauterine contraceptive device (principal) | CPT/HCPCS: 81025 ==